=== PATIENT | male | born 1955 | race African-American/Black ===

== ENCOUNTER 2017-09-09 09:25 | Inpatient (IN) ==
[2017-09-09] MEDS ORDERED: ASPIRIN 325 MG TABLET PO STA (10:44)
[2017-09-09] MEDS ORDERED: MORPHINE 2 MG/1 ML SYRINGE IV STA (10:44)
[2017-09-09] MEDS ORDERED: ONDANSETRON 4 MG/2 ML VIAL IV STA (10:44)
[2017-09-09] MEDS ORDERED: NITROGLYCERIN 2% OINT 1 INCH/GM PACK TOP STA (10:44)
[2017-09-09] MEDS ORDERED: ALUM/MAG/SIMETH/LIDO VISC 1:1 30 ML BOTTLE PO STA (10:44)
[2017-09-09 10:53] LABS: Basophils % 0.5 % (0.0-0.8); Eosinophils # 0.1 10*3/uL (0.0-0.87); Eosinophils % 1.9 % (0.00-10.9); Hematocrit 37.9 VOL% (42.0-52.0); Immature Granulocytes % 0.4 %; Immature Granulocytes Absolute 0.02 #; Lymphocytes # 1.8 10*3/uL (1.4-4.0); Mean Corpuscular HGB Conc 34.3 GM/DL (32-36); Mean Corpuscular Hemoglobin 31 PG (27-34); Mean Corpuscular Volume 89.4 FL (87-102); Mean Platelet Volume 11.7 FL (9.6-12.0); Monocytes # 0.7 10*3/uL (0.11-0.8); Monocytes % 11.5 % (1.7-12.7); Neutrophils % 53.7 % (38.7-73.9); Platelet Count 189 T/CUMM (130-400); Red Blood Count 4.24 MC/CUMM (3.8-5.5); Red Cell Distribution Width 14.9 % (9.3-17.3); White Blood Count 5.7 T/CUMM (4-12)
[2017-09-09 10:56] LABS: PT Patient Result 10.7 SECS
[2017-09-09 11:03] LABS: Alanine Aminotransferase 20 U/L (16-61); Albumin 3.6 G/DL (3.4-5.0); Alkaline Phosphatase 176 U/L (45-117); Aspartate Amino Transferase 17 U/L (0-37); Bilirubin,Total < 0.39 MG/DL (0.2-1.0); Blood Urea Nitrogen 17 MG/DL (7-18); Calcium 9.2 MG/DL (8.5-10.1); Glucose 118 MG/DL (74-106); Magnesium 2.1 MG/DL (1.8-2.4); Osmolality,Calculated 279.5 MOS/KG (273-304); Potassium 2.9 MMOL/L (3.5-5.1); Sodium 139 MMOL/L (136-145); Total Protein 7.2 G/DL (6.4-8.3)
[2017-09-09] MEDS ORDERED: NITROGLYCERIN 2% OINT 1 INCH/GM PACK TOP ONE (11:10)
[2017-09-09] MEDS ORDERED: ONDANSETRON 4 MG/2 ML VIAL ONE (11:10)
[2017-09-09] MEDS ORDERED: ALUM/MAG/SIMETH/LIDO VISC 1:1 30 ML BOTTLE PO ONE (11:11)
[2017-09-09] MEDS ORDERED: MORPHINE 2 MG/1 ML SYRINGE ONE (11:11)
--- NOTE | 2017-09-09 11:27 | XRay Report ---
History is chest pain Comparison 12/26/2015 The heart is mildly enlarged No congestive failure or confluent infiltrate is seen Impression: Mild cardiomegaly without CHF PROCEDURE INTERPRETED AT [facility] DEPARTMENT OF RADIOLOGY Final Report Signed by: Dr. Yulissa Maynard
[2017-09-09] MEDS ORDERED: POTASSIUM CHLORIDE 20 MEQ TABLET PO STA (12:04)
--- NOTE | 2017-09-09 12:11 | Emergency Department Note ---
Dany Sherman Manpreet, am scribing for, and in the presence of, Ned Bejarano MD 11:08. Carlee Sherman Charles R, MD, personally performed the services described in this documentation, ascribed by Jonathan Saenz in my presence, and it is both accurate and complete . Arrival - Arrival Chief Complaint: Chest Pain Stated Complaint: chest pain ED Nursing Triage Note: pt states when he gets up in the morning and started walking around he gets a pressure in his chest and sob. onset yesterday morning Mode of Arrival: Ambulatory Limitations: No Limitations Source: Patient Time Seen by Provider: 09/09/17 09:49 - History of Present Illness HPI Narrative: Pt is a 62 y/o male who presents to the ED with CC of pressure in his chest and SOB on exertion. Pt reports of having a Stent May 2016 put states he had no pain then. Pt also c/o diaphoresis but denies any pain currently. Pt has right sided weakness from a previous CVA and uses a walker to ambulate. Pt's PCP is Dr. Alvarado and mds nurse is Dr. Antonio at [place]. Pt denies any fever, chills, or N/V/D. No other pains/complaints reported to the ED. Onset (ago): day(s) (Yesterday) Consistency: constant Severity: moderate Allergies/Adverse Reactions: Allergies Allergy/AdvReac Type Severity Reaction Status Date / Time No Known Allergies Allergy Verified 03/14/16 18:13 Home Medications: Home Medications Medication Instructions Recorded Confirmed Type Furosemide Tab [Lasix Tab] 20 mg PO DAILY 12/26/15 09/09/17 History Meloxicam [Mobic] 7.5 tablet PO DAILY 12/26/15 09/09/17 History Phenytoin ER Cap [Dilantin Cap] 200 mg PO BID 12/26/15 09/09/17 History Potassium Chloride 20 meq PO DAILY 12/26/15 09/09/17 History Sertraline HCl 100 mg PO DAILY 12/26/15 09/09/17 History cloNIDine TAB [Catapres Tab] 0.1 mg PO BEDTIME 12/26/15 09/09/17 History Aspirin [Ecotrin] 81 mg PO DAILY 03/14/16 09/09/17 History Cetirizine Tab [ZyrTEC Tab] 10 mg PO DAILY 08/24/16 09/09/17 History Clopidogrel [Plavix] 75 mg PO DAILY 08/24/16 09/09/17 History Fluticasone 50 Mcg Nasal [place] 1 spray BOTH NARES DAILY PRN 08/24/16 09/09/17 History [Flonase Nasal [place]] Folic Acid Tab 1 mg PO DAILY 08/24/16 09/09/17 History Pantoprazole Tab [Protonix Tab] 40 mg PO DAILY 08/24/16 09/09/17 History Rosuvastatin [Crestor] 10 mg PO BEDTIME 08/24/16 09/09/17 History Linaclotide [Linzess] 145 mcg PO DAILY PRN 05/27/17 09/09/17 History Olmesartan/Amlodipin/Hcthiazid 1 each PO DAILY 05/27/17 09/09/17 History [Tribenzor 40-5-25 mg Tablet] Ondansetron [Ondansetron Odt] 4 mg PO Q4H PRN #10 tab.rapdis 05/27/17 09/09/17 Rx Potassium Chloride Cap/Tab [K Dur] 20 meq PO BID #14 tablet 05/27/17 09/09/17 Rx Saxagliptin HCl/Metformin HCl 1 each PO DAILY 05/27/17 09/09/17 History [Kombiglyze Xr 5-500 mg Tablet] Tamsulosin [Flomax] 0.4 mg PO DAILY 05/27/17 09/09/17 History predniSONE TAB [PredniSONE] 5 mg PO DAILY 05/27/17 09/09/17 History Review of System - Review of System 12 point system: reviewed and no additional remarkable complaints except as stated - Review of System Constitutional: Present: diaphoresis. Absent: chills, fever Respiratory: Present: respiratory distress. Absent: cough, wheezing Cardiovascular: Present: chest pain ("Chest pressure"). Absent: palpitations Gastrointestinal: Absent: abdominal pain, nausea, vomiting, diarrhea Genitourinary male: Absent: dysuria Musculoskeletal: Absent: arm pain, back pain, leg pain, neck pain Neurological: Absent: headache, weakness, numbness, paresthesias Medical,Surgical,& Family Hx - Medical History Cardio: History of: Hypertension Neurology: History of: Cerebrovascular Accident (right sided paralysis) Endocrine: History of: Diabetes Mellitus (NIDDM), Dyslipidemia Gastrointestinal: History of: GERD (GERD) Musculoskeletal: History of: Back/Neck Problems, Musculoskeletal Cancer ( ARTHRITIS) - Surgical History Thoracic Surgeries: Patient denies;: Organ Transplant Neurologic Surgeries: Patient denies: Neurologic Surgery Abdominal Surgeries: Surgical HX of: Abdominal Surgery, Appendectomy Orthopedic Surgeries: Surgical HX of;: Orthopedic Surgery (C2) - Family History Family History: Reports;: Family Diabetes, Family Heart Disease, Family Hypertension, Family Stroke - Social History Smoking Status: Never smoker Frequency of Alcohol Use: None Type of Drug Use: None Exam Vital Signs: Vital Signs Temperature 97.0 F L 09/09/17 09:40 Pulse Rate 69 09/09/17 09:40 Respiratory Rate 18 09/09/17 09:40 Blood Pressure 104/66 09/09/17 09:40 O2 Sat by Pulse Oximetry 96 09/09/17 09:31 - General General appearance: alert - Head Head exam: Present: atraumatic, normocephalic, normal inspection - Eye Eye exam: Present: normal appearance, PERRL, EOMI - ENT ENT exam: Present: normal exam, normal oropharynx, mucous membranes moist, TM's normal bilaterally - Neck Neck exam: Present: normal inspection, full ROM, trachea midline - Chest Chest inspection: Present: normal inspection - Respiratory Respiratory exam: Present: normal lung sounds bilaterally. Absent: respiratory distress - Cardiovascular Cardiovascular exam: Present: regular rate, normal rhythm, normal heart sounds - Abdominal Exam Abdominal exam: Present: soft, normal bowel sounds - Extremities Exam Extremities exam: Present: normal inspection, full ROM - Back Exam Back exam: Present: normal inspection, full ROM - Neurological Exam Neurological exam: Present: alert, oriented X3, CN II-XII intact, reflexes normal - Psychiatric Psychiatric exam: Present: normal affect, normal mood - Skin Skin exam: Present: warm, dry, intact, normal color. Absent: pallor Course - Consultations Consultation #1: Dr. Marcie Alvarado will admit patient Time: 12:11 Results - Labs CBC & BMP: 09/09/17 09:58 09/09/17 09:58 Lab Results: I have reviewed the patients labs Labs: Laboratory Tests 09/09/17 09/09/17 09:58 09:58 Sodium 139 Potassium 2.9 L Chloride 99 Carbon Dioxide 34 H Anion Gap 8.9 BUN 17 Creatinine 1.10 GFR Calculation 106 BUN/Creatinine Ratio 15.00 Glucose 118 H Calculated Osmolality 279.5 Calcium 9.2 Magnesium 2.1 Total Bilirubin < 0.39 AST 17 ALT 20 Alkaline Phosphatase 176 H Troponin I < 0.015 Total Protein 7.2 Albumin 3.6 Globulin 3.6 H Albumin/Globulin Ratio 1.0 L Lipase 218.0 Laboratory Tests 09/09/17 09:58 B-Natriuretic Peptide < 2 L - Diagnostic Findings Procedure: Chest x-ray: report reviewed by me ("CXR: Mild cardiomegaly without CHF.") Disposition Clinical Impression: Chest pain Case discussed with: patient Disposition: Still a Patient Condition: Stable Time of Disposition: 12:11
--- NOTE | 2017-09-09 13:37 | Order Completion Report ---
See report scanned to EMR
--- NOTE | 2017-09-09 14:53 | Order Completion Report ---
See report scanned to EMR
[2017-09-09] MEDS ORDERED: POTASSIUM CHLORIDE 20 MEQ TABLET PO ONE (15:43)
[2017-09-09] MEDS ORDERED: GLUCAGON 1 MG VIAL IM PRN (16:24)
[2017-09-09] MEDS ORDERED: ACETAMINOPHEN 325 MG TABLET PO PRN (16:24)
[2017-09-09] MEDS ORDERED: DEXTROSE 50% 25 GM/50 ML VIAL IV PRN (16:24)
[2017-09-09] MEDS ORDERED: ONDANSETRON ODT 4 MG TABLET PO PRN (16:24)
[2017-09-09] MEDS ORDERED: ONDANSETRON 4 MG/2 ML VIAL IV PRN (16:24)
[2017-09-09] MEDS ORDERED: ENOXAPARIN 40 MG/0.4 ML SYRINGE SUBCUT SCH (16:24)
[2017-09-09] MEDS ORDERED: FLUTICASONE 50 MCG NASAL SPRAY 16 GM BOTTLE BOTH NARES PRN (16:24)
[2017-09-09] MEDS ORDERED: MORPHINE 2 MG/1 ML SYRINGE IV PRN (16:24)
[2017-09-09] MEDS ORDERED: LINACLOTIDE 145 MCG CAPSULE PO PRN (16:24)
[2017-09-09] MEDS: INSULIN REGULAR 100 UNIT/ML SUBCUT SCH ×2 (16:58→21:36)
--- NOTE | 2017-09-09 17:39 | Internal Med History&Physical ---
Assessment and Plan (1) Chest pain Status: Acute Current Visit: Yes (2) History of stroke Status: Chronic Current Visit: Yes (3) CAD (coronary artery disease) Status: Chronic Current Visit: Yes Qualifiers: Coronary Disease-Associated Artery/Lesion type: [place] artery [place] vs. transplanted heart: [place] heart Associated angina: without angina Qualified Code(s): I25.10 - Atherosclerotic heart disease of [place] coronary artery without angina pectoris (4) Diabetes Status: Chronic Current Visit: Yes Qualifiers: Diabetes mellitus type: type 2 Diabetes mellitus complication status: without complication Diabetes mellitus health companion insulin use: without health companion use Qualified Code(s): E11.9 - Type 2 diabetes mellitus without complications History of Present Illness Chief complaint: chest pain History of present illness: Mr. Barraza is a 62 year old male with history of HTN, stroke with right sided weakness, dyslipidemia, DM, CAD/stenting last year per Dr. Antonio, OA, degenerative disc disease, recent cervical spinal surgery, who presented to ER with acute exertional chest tightness. He reports having no pain last year when coronary arterial stent placed. No history of asthma. Home Medications Medication Instructions Recorded Confirmed Type Furosemide Tab [Lasix Tab] 20 mg PO DAILY 12/26/15 09/09/17 History Meloxicam [Mobic] 7.5 tablet PO DAILY 12/26/15 09/09/17 History Phenytoin ER Cap [Dilantin Cap] 200 mg PO BID 12/26/15 09/09/17 History Potassium Chloride 20 meq PO DAILY 12/26/15 09/09/17 History Sertraline HCl 100 mg PO DAILY 12/26/15 09/09/17 History cloNIDine TAB [Catapres Tab] 0.1 mg PO BEDTIME 12/26/15 09/09/17 History Aspirin [Ecotrin] 81 mg PO DAILY 03/14/16 09/09/17 History Cetirizine Tab [ZyrTEC Tab] 10 mg PO DAILY 08/24/16 09/09/17 History Clopidogrel [Plavix] 75 mg PO DAILY 08/24/16 09/09/17 History Fluticasone 50 Mcg Nasal [place] 1 spray BOTH NARES DAILY PRN 08/24/16 09/09/17 History [Flonase Nasal [place]] Folic Acid Tab 1 mg PO DAILY 08/24/16 09/09/17 History Pantoprazole Tab [Protonix Tab] 40 mg PO DAILY 08/24/16 09/09/17 History Rosuvastatin [Crestor] 10 mg PO BEDTIME 08/24/16 09/09/17 History Linaclotide [Linzess] 145 mcg PO DAILY PRN 05/27/17 09/09/17 History Olmesartan/Amlodipin/Hcthiazid 1 each PO DAILY 05/27/17 09/09/17 History [Tribenzor 40-5-25 mg Tablet] Ondansetron [Ondansetron Odt] 4 mg PO Q4H PRN #10 tab.rapdis 05/27/17 09/09/17 Rx Saxagliptin HCl/Metformin HCl 1 each PO DAILY 05/27/17 09/09/17 History [Kombiglyze Xr 5-500 mg Tablet] Tamsulosin [Flomax] 0.4 mg PO DAILY 05/27/17 09/09/17 History predniSONE TAB [PredniSONE] 5 mg PO DAILY 05/27/17 09/09/17 History Allergies Allergy/AdvReac Type Severity Reaction Status Date / Time No Known Allergies Allergy Verified 03/14/16 18:13 Medical,Surgical,& Family Hx - Medical History Cardio: History of: Hypertension Neurology: History of: Cerebrovascular Accident (right sided weakness) Endocrine: History of: Diabetes Mellitus (NIDDM), Dyslipidemia Gastrointestinal: History of: GERD (GERD) Musculoskeletal: History of: Back/Neck Problems (Arthritis), Musculoskeletal Problems (Arthritis) - Surgical History Cardiac Surgeries: Sugical HX of: Cardiac Catheterization (May 2016) Thoracic Surgeries: Patient denies;: Organ Transplant Neurologic Surgeries: Patient denies: Neurologic Surgery Abdominal Surgeries: Surgical HX of: Abdominal Surgery, Appendectomy Orthopedic Surgeries: Surgical HX of;: Orthopedic Surgery (C2) - Family History Family History: Reports;: Family Diabetes, Family Heart Disease, Family Hypertension, Family Stroke - Social History Smoking Status: Never smoker Frequency of Alcohol Use: None Type of Drug Use: None Marital Status: Lives With:: Spouse Functional capacity: uses cane/walker - Constitutional Constitutional: Absent: fatigue - Cardiovascular Cardiovascular: Present: chest pain with activity. Absent: diaphoresis - Respiratory Respiratory: Absent: dyspnea - Gastrointestinal Gastrointestinal: Absent: nausea - Musculoskeletal Musculoskeletal: Present: arthralgias, muscle weakness (history of stroke) - Psychiatric Psychiatric: Absent: anxiety Exam - Constitutional Vitals: Period Temp Pulse Resp BP Sys/Lopez Pulse Ox Last 24 Hr 97.0 F-98.6 F 62-69 18-18 101-104/66-72 96-100 General appearance: no acute distress - Head Head exam: Present: normocephalic - Eye Eye exam: Present: EOMI - Respiratory Respiratory exam: Present: clear to auscultation bilaterally - Cardiovascular Cardiovascular exam: Present: regular rate and rhythm - GI/Abdominal GI/Abdominal exam: Present: soft. Absent: tenderness - Extremities Exam Extremities exam: Absent: edema - Neurological Exam Neurological exam: Present: alert, oriented X3 - Psychiatric Psychiatric exam: Present: normal mood - Skin Skin exam: Present: warm, dry Results - Labs CBC & BMP: 09/10/17 04:49 09/10/17 04:49 - EKG EKG shows: sinus rhythm - Diagnostic Findings Procedure: Chest x-ray: report reviewed by me
[2017-09-09] MEDS: ENOXAPARIN 40 MG/0.4 ML SYRINGE SUBCUT SCH (17:49)
[2017-09-09] MEDS: NITROGLYCERIN 2% OINT 1 INCH/GM PACK TOP SCH (17:49)
[2017-09-09] MEDS: SODIUM CHLORIDE 0.9% 1,000 ML IV SCH (17:49)
[2017-09-09] MEDS: POTASSIUM CHLORIDE 20 MEQ TABLET PO SCH (21:33)
[2017-09-09] MEDS: ROSUVASTATIN 10 MG TABLET PO SCH (21:34)
[2017-09-09] MEDS: DOCUSATE SODIUM 100 MG CAPSULE PO SCH (21:34)
[2017-09-09] MEDS: cloNIDine 0.1 MG TABLET PO SCH (21:35)
[2017-09-09] MEDS: PHENYTOIN ER 100 MG CAPSULE PO SCH (21:41)
[2017-09-10] MEDS: NITROGLYCERIN 2% OINT 1 INCH/GM PACK TOP SCH ×4 (00:03→17:28)
[2017-09-10 05:19] LABS: Basophils % 0.3 % (0.0-0.8); Eosinophils # 0.2 10*3/uL (0.0-0.87); Eosinophils % 2.8 % (0.00-10.9); Hematocrit 33.7 VOL% (42.0-52.0); Hemoglobin 11.4 GM/DL (14.0-18.0); Immature Granulocytes % 0.3 %; Immature Granulocytes Absolute 0.02 #; Lymphocytes # 2.5 10*3/uL (1.4-4.0); Lymphocytes % 40.3 % (21.2-54.2); Mean Corpuscular HGB Conc 33.8 GM/DL (32-36); Mean Corpuscular Hemoglobin 31 PG (27-34); Mean Corpuscular Volume 90.6 FL (87-102); Mean Platelet Volume 11.6 FL (9.6-12.0); Monocytes # 0.7 10*3/uL (0.11-0.8); Neutrophils # 2.8 10*3/uL (1.4-7.4); Neutrophils % 45.3 % (38.7-73.9); Platelet Count 158 T/CUMM (130-400); Red Blood Count 3.72 MC/CUMM (3.8-5.5); White Blood Count 6.2 T/CUMM (4-12)
[2017-09-10 05:59] LABS: Alanine Aminotransferase 18 U/L (16-61); Albumin 2.9 G/DL (3.4-5.0); Alkaline Phosphatase 142 U/L (45-117); Aspartate Amino Transferase 11 U/L (0-37); Bilirubin,Total < 0.39 MG/DL (0.2-1.0); Blood Urea Nitrogen 12 MG/DL (7-18); Calcium 8.6 MG/DL (8.5-10.1); Cholesterol 173 MG/DL (50-200); Glucose 115 MG/DL (74-106); HDL Cholesterol 46 MG/DL (40-60); Magnesium 2.1 MG/DL (1.8-2.4); Osmolality,Calculated 283.1 MOS/KG (273-304); Potassium 3.7 MMOL/L (3.5-5.1); Risk Ratio 3.76; Sodium 142 MMOL/L (136-145); Total Protein 5.9 G/DL (6.4-8.3); Triglycerides 196 MG/DL (2-150); VLDL CHOLESTEROL 39.2 MG/DL
[2017-09-10 06:28] LABS: Apearance,Urine CLEAR (Clear); Bilirubin,Urine Negative (Negative); Blood, Urine Negative (Negative); Glucose,Urine (UA) Negative (Negative); Ketones,Urine Negative (Negative); Nitrite,Urine Negative (Negative); Protein,Urine Negative; RBC,Urine <1 /HPF (0-4); Urine Color Straw (Yellow); Urine Specific Gravity 1.004 (1.001-1.035); Urine Urobilinogen < 2.0 EU/DL (0.2-1.0); WBC,Urine <1 /HPF (0-6)
[2017-09-10] MEDS: INSULIN REGULAR 100 UNIT/ML SUBCUT SCH ×4 (07:39→21:55)
--- NOTE | 2017-09-10 08:17 | XRay Report ---
XR chest 2V Date: 09/10/2017 4:00 AM History: Shortness of breath Comparison: 09/09/2017 Technique: PA and lateral chest Findings: The heart is smaller in size with reduced parenchymal findings in the lungs. Stable mediastinum with degenerative changes. Impression: The heart is smaller in size with improved mild CHF. PROCEDURE INTERPRETED AT [facility] DEPARTMENT OF RADIOLOGY Final Report Signed by: Dr. Misty Elena
[2017-09-10] MEDS ORDERED: CLOPIDOGREL 75 MG TABLET PO SCH (09:00)
[2017-09-10] MEDS ORDERED: POTASSIUM CHLORIDE 20 MEQ TABLET PO SCH (09:00)
[2017-09-10] MEDS ORDERED: ASPIRIN EC 81 MG TABLET PO SCH ×2 (09:00)
[2017-09-10] MEDS ORDERED: metFORMIN 500 MG TABLET PO SCH (09:00)
[2017-09-10] MEDS: hydroCHLOROthiazide 25 MG TABLET PO SCH (09:12)
[2017-09-10] MEDS: MELOXICAM 7.5 MG TABLET PO SCH (09:12)
[2017-09-10] MEDS: TAMSULOSIN 0.4 MG CAPSULE PO SCH (09:13)
[2017-09-10] MEDS: PANTOPRAZOLE 40 MG TABLET PO SCH (09:13)
[2017-09-10] MEDS: CETIRIZINE 10 MG TABLET PO SCH (09:13)
[2017-09-10] MEDS: DOCUSATE SODIUM 100 MG CAPSULE PO SCH ×2 (09:13→20:43)
[2017-09-10] MEDS: POTASSIUM CHLORIDE 20 MEQ TABLET PO SCH ×2 (09:13→20:43)
[2017-09-10] MEDS: OLMESARTAN 20 MG TABLET PO SCH (09:13)
[2017-09-10] MEDS: sitaGLIPtin 100 MG TABLET PO SCH (09:13)
[2017-09-10] MEDS: FOLIC ACID 1 MG TABLET PO SCH (09:13)
[2017-09-10] MEDS: FUROSEMIDE 20 MG TABLET PO SCH (09:14)
[2017-09-10] MEDS: SERTRALINE 100 MG TABLET PO SCH (09:14)
[2017-09-10] MEDS: PHENYTOIN ER 100 MG CAPSULE PO SCH ×2 (09:14→20:43)
[2017-09-10] MEDS: amLODIPine 5 MG TABLET PO SCH (09:14)
[2017-09-10] MEDS: predniSONE 5 MG TABLET PO SCH (09:14)
[2017-09-10] MEDS: PANTOPRAZOLE 40 MG VIAL IV SCH (09:55)
[2017-09-10] MEDS ORDERED: MAGNESIUM SULF RIDER 2 GM in PREMIX 1 EACH IV PRN (12:24)
[2017-09-10] MEDS ORDERED: DIAZEPAM 5 MG TABLET PO ONE (12:24)
[2017-09-10] MEDS ORDERED: diphenhydrAMINE CAP 25 MG CAPSULE PO ONE (12:24)
[2017-09-10] MEDS ORDERED: POTASSIUM CHLORIDE RIDER 10 MEQ in PREMIX 1 EACH IV PRN (12:24)
--- NOTE | 2017-09-10 12:36 | History and Physical Update ---
Sedation H&P Update - History and Physical H&P was reviewed, the patient examined and there: are no changes in the patients condition since last H&P was completed. - Dictation Physical: refer to H&P completed by admitting physician - Physical Exam Mental Status: alert and oriented Heart: regular rate and rhythm Lung: clear to auscultation Abdomen: within normal limits Vitals: within normal limits - Sedation Plan for Sedation: moderate Patient Consent: Procedure disscussed with patient and patinet has consented., Risks and benefits were discussed with patient,including infection,, bleeding, injury to surrounding structures, seizure, temporary nerve, Patient understands and accepts potential risks/benefits and agrees to, proceed. ASA Class: II Airway Assessment: Class II: Soft palate, uvula, fauces visible
--- NOTE | 2017-09-10 12:36 | Cardiology Consult Note ---
History of Present Illness - Data of Consult Patient: new to practice - Consult Narrative History of present illness: Cardiology consult 62-year-old man admitted with exertional angina and shortness of breath. For the past 5 days he has had midsternal chest pain walking. He has had some ration down his left arm. No nausea or diaphoresis. He has no sublingual nitro at home. EKG shows sinus rhythm with preserved R-wave and ST-T wave changes. Chest x-ray shows mild cardiomegaly but no heart failure infiltrate. Troponin is negative 3. Patient has documented CAD. Status post stent July [address] Antonio at [place] unknown vessel. Records have been requested. The patient has chronic hypertension and takes olmesartan/amlodipine/HCTZ 40-5-25 daily. Is a type II diabetic and takes saxagliptin/metformin. Status post stroke 2009. He had a seizure post stroke and is now taking phenytoin 20 mg twice daily. No recurrent seizure. He does have hyperlipidemia and takes Crestor 10 mg daily. Patient is 5 feet 11 and weighs 220 pounds. His weight is been stable. He does have GE reflux symptoms and takes Protonix daily. He denies melena. Patient states that this pain is completely different from his usual reflux symptoms. He does take meloxicam 7.5 mg daily for arthritic complaints. He takes Flomax 0 point negative day for BPH symptoms. The patient does snore loudly and sleeps in a recliner chair. He does have daytime sleepiness. He will be need be evaluated for sleep apnea. Remote smoker. Quit over 30 years ago. No alcohol. He did not know his father. Brother had GA in his late 40s. Uncle had a stroke. No allergies Surgeries include cervical fusion and appendectomy Blood pressure 118/76. Pulse is 82 and regular. O2 sat 96% room air. Bilateral arcus. No xanthelasma. No carotid bruits. Clear lungs. Regular rhythm. No murmur or gallop abdomen obese soft benign. No chest wall tenderness to palpation. Femoral pulses are 2+ without bruit. 2+ distal pulses Lab data shows white count 6.2 hemoglobin 11.4 hematocrit 33.7 MCV of 90 INR 1.0 sodium 142 potassium 3.7 chloride 102 CO2 35 BUN 12 creatinine 0.90 glucose 115 magnesium 2.1 AST 11 ALT 18 negative troponin 3 triglycerides 196 cholesterol 173 LDL 96 HDL 46 negative UA. Dilantin level 4.6. Impression Exertional angina midsternal location with radiation to left arm, suspect disease progression Status post stent July [address] [place] [address] Antonio. Patient had another moderate blockage at that time which was treated medically Multiple risk factors for CAD Long-standing hypertension Type 2 diabetes Hyperlipidemia Obesity Status post stroke Sedentary lifestyle Family history GA and hypertension GE reflux Remote tobacco abuse BPH Creatinine 0.90 BUN 12 Rule out NAOMIE Plan Hold metformin Normal saline hydration Cardiac cath possible stent procedure, risk benefit discussed with patient and with his Tegan and with his daughter Juana. All questions answered. He agreed proceed as outlined. Dr. Danielle will perform the procedure and family informed Risk factor modification Outpatient sleep study CC: Marcie Alvarado, DO - Home Medications and Allergies Home Medications: Home Medications Medication Instructions Recorded Confirmed Type Furosemide Tab [Lasix Tab] 20 mg PO DAILY 12/26/15 09/09/17 History Meloxicam [Mobic] 7.5 tablet PO DAILY 12/26/15 09/09/17 History Phenytoin ER Cap [Dilantin Cap] 200 mg PO BID 12/26/15 09/09/17 History Potassium Chloride 20 meq PO DAILY 12/26/15 09/09/17 History Sertraline HCl 100 mg PO DAILY 12/26/15 09/09/17 History cloNIDine TAB [Catapres Tab] 0.1 mg PO BEDTIME 12/26/15 09/09/17 History Aspirin [Ecotrin] 81 mg PO DAILY 03/14/16 09/09/17 History Cetirizine Tab [ZyrTEC Tab] 10 mg PO DAILY 08/24/16 09/09/17 History Clopidogrel [Plavix] 75 mg PO DAILY 08/24/16 09/09/17 History Fluticasone 50 Mcg Nasal [place] 1 spray BOTH NARES DAILY PRN 08/24/16 09/09/17 History [Flonase Nasal [place]] Folic Acid Tab 1 mg PO DAILY 08/24/16 09/09/17 History Pantoprazole Tab [Protonix Tab] 40 mg PO DAILY 08/24/16 09/09/17 History Rosuvastatin [Crestor] 10 mg PO BEDTIME 08/24/16 09/09/17 History Linaclotide [Linzess] 145 mcg PO DAILY PRN 05/27/17 09/09/17 History Olmesartan/Amlodipin/Hcthiazid 1 each PO DAILY 05/27/17 09/09/17 History [Tribenzor 40-5-25 mg Tablet] Ondansetron [Ondansetron Odt] 4 mg PO Q4H PRN #10 tab.rapdis 05/27/17 09/09/17 Rx Saxagliptin HCl/Metformin HCl 1 each PO DAILY 05/27/17 09/09/17 History [Kombiglyze Xr 5-500 mg Tablet] Tamsulosin [Flomax] 0.4 mg PO DAILY 05/27/17 09/09/17 History predniSONE TAB [PredniSONE] 5 mg PO DAILY 05/27/17 09/09/17 History Allergies/Adverse Reactions: Allergies Allergy/AdvReac Type Severity Reaction Status Date / Time No Known Allergies Allergy Verified 03/14/16 18:13 Medical,Surgical,& Family Hx - Medical History Cardio: History of: Hypertension Neurology: History of: Cerebrovascular Accident (right sided weakness) Endocrine: History of: Diabetes Mellitus (NIDDM), Dyslipidemia Gastrointestinal: History of: GERD (GERD) Musculoskeletal: History of: Back/Neck Problems (Arthritis), Musculoskeletal Cancer (ARTHRITIS), Musculoskeletal Problems (Arthritis) - Surgical History Cardiac Surgeries: Sugical HX of: Cardiac Catheterization (May 2016) Thoracic Surgeries: Patient denies;: Organ Transplant Neurologic Surgeries: Patient denies: Neurologic Surgery Abdominal Surgeries: Surgical HX of: Abdominal Surgery, Appendectomy Orthopedic Surgeries: Surgical HX of;: Orthopedic Surgery (C2) - Family History Family History: Reports;: Family Diabetes, Family Heart Disease, Family Hypertension, Family Stroke - Social History Smoking Status: Never smoker Frequency of Alcohol Use: None Type of Drug Use: None Physical Examination Vital Signs Temp Pulse Resp BP Pulse Ox 97.0 F L 69 18 104/66 96 09/09/17 09:31 09/09/17 09:31 09/09/17 09:31 09/09/17 09:31 09/09/17 09:31 Result/EKG - Labs CBC & BMP: 09/10/17 04:49 09/10/17 04:49 Labs: Laboratory Results - last 24 hr 09/09/17 09/09/17 09/09/17 14:48 16:34 16:34 WBC RBC Hgb Hct MCV MCH MCHC RDW Plt Count MPV Neut % (Auto) Lymph % (Auto) [place] % (Auto) Eos % (Auto) Baso % (Auto) Neut # (Auto) Lymph # (Auto) [place] # (Auto) Eos # (Auto) Baso # (Auto) Immature Gran % Nucleated RBC % Immature Gran # Nucleated RBCs # Immature Plt Fraction Sodium Potassium Chloride Carbon Dioxide Anion Gap BUN Creatinine GFR Calculation BUN/Creatinine Ratio Glucose POC Glucose Calculated Osmolality Calcium Magnesium Total Bilirubin AST ALT Alkaline Phosphatase Troponin I 0.019 < 0.015 B-Natriuretic Peptide Total Protein Albumin Globulin Albumin/Globulin Ratio Triglycerides Cholesterol LDL Cholesterol VLDL Cholesterol HDL Cholesterol Heart Disease Risk Ratio Urine Color Urine Appearance Urine pH Ur Specific [place] Urine Protein Urine Glucose (UA) Urine Ketones Urine Blood Urine Nitrate Urine Bilirubin Urine Urobilinogen Urine Leukocytes Urine RBC Urine WBC Ur Culture Indicated? Phenytoin 4.6 L 09/09/17 09/09/17 09/10/17 16:39 19:52 00:28 WBC RBC Hgb Hct MCV MCH MCHC RDW Plt Count MPV Neut % (Auto) Lymph % (Auto) [place] % (Auto) Eos % (Auto) Baso % (Auto) Neut # (Auto) Lymph # (Auto) [place] # (Auto) Eos # (Auto) Baso # (Auto) Immature Gran % Nucleated RBC % Immature Gran # Nucleated RBCs # Immature Plt Fraction Sodium Potassium Chloride Carbon Dioxide Anion Gap BUN Creatinine GFR Calculation BUN/Creatinine Ratio Glucose POC Glucose 123 H 108 H 134 H Calculated Osmolality Calcium Magnesium Total Bilirubin AST ALT Alkaline Phosphatase Troponin I B-Natriuretic Peptide Total Protein Albumin Globulin Albumin/Globulin Ratio Triglycerides Cholesterol LDL Cholesterol VLDL Cholesterol HDL Cholesterol Heart Disease Risk Ratio Urine Color Urine Appearance Urine pH Ur Specific [place] Urine Protein Urine Glucose (UA) Urine Ketones Urine Blood Urine Nitrate Urine Bilirubin Urine Urobilinogen Urine Leukocytes Urine RBC Urine WBC Ur Culture Indicated? Phenytoin 09/10/17 09/10/17 09/10/17 04:49 04:49 04:49 WBC 6.2 RBC 3.72 L Hgb 11.4 L Hct 33.7 L MCV 90.6 MCH 31 MCHC 33.8 RDW 15.0 Plt Count 158 MPV 11.6 Neut % (Auto) 45.3 Lymph % (Auto) 40.3 [place] % (Auto) 11.0 Eos % (Auto) 2.8 Baso % (Auto) 0.3 Neut # (Auto) 2.8 Lymph # (Auto) 2.5 [place] # (Auto) 0.7 Eos # (Auto) 0.2 Baso # (Auto) 0.0 Immature Gran % 0.3 Nucleated RBC % 0.0 Immature Gran # 0.02 Nucleated RBCs # 0.00 Immature Plt Fraction 0.0 Sodium 142 Potassium 3.7 Chloride 102 Carbon Dioxide 35 H Anion Gap 8.7 BUN 12 Creatinine 0.90 GFR Calculation 135 BUN/Creatinine Ratio 13.00 Glucose 115 H POC Glucose Calculated Osmolality 283.1 Calcium 8.6 Magnesium 2.1 Total Bilirubin < 0.39 AST 11 ALT 18 Alkaline Phosphatase 142 H Troponin I B-Natriuretic Peptide 15 Total Protein 5.9 L Albumin 2.9 L Globulin 3.0 Albumin/Globulin Ratio 0.9 L Triglycerides 196 H Cholesterol 173 LDL Cholesterol 96.0 VLDL Cholesterol 39.2 HDL Cholesterol 46 Heart Disease Risk Ratio 3.76 Urine Color Urine Appearance Urine pH Ur Specific [place] Urine Protein Urine Glucose (UA) Urine Ketones Urine Blood Urine Nitrate Urine Bilirubin Urine Urobilinogen Urine Leukocytes Urine RBC Urine WBC Ur Culture Indicated? Phenytoin 09/10/17 09/10/17 09/10/17 05:25 05:27 07:53 WBC RBC Hgb Hct MCV MCH MCHC RDW Plt Count MPV Neut % (Auto) Lymph % (Auto) [place] % (Auto) Eos % (Auto) Baso % (Auto) Neut # (Auto) Lymph # (Auto) [place] # (Auto) Eos # (Auto) Baso # (Auto) Immature Gran % Nucleated RBC % Immature Gran # Nucleated RBCs # Immature Plt Fraction Sodium Potassium Chloride Carbon Dioxide Anion Gap BUN Creatinine GFR Calculation BUN/Creatinine Ratio Glucose POC Glucose 147 H 120 H Calculated Osmolality Calcium Magnesium Total Bilirubin AST ALT Alkaline Phosphatase Troponin I B-Natriuretic Peptide Total Protein Albumin Globulin Albumin/Globulin Ratio Triglycerides Cholesterol LDL Cholesterol VLDL Cholesterol HDL Cholesterol Heart Disease Risk Ratio Urine Color Straw Urine Appearance Clear Urine pH 6.0 Ur Specific [place] 1.004 Urine Protein Negative Urine Glucose (UA) Negative Urine Ketones Negative Urine Blood Negative Urine Nitrate Negative Urine Bilirubin Negative Urine Urobilinogen < 2.0 H Urine Leukocytes Negative Urine RBC <1 Urine WBC <1 Ur Culture Indicated? Not indicated Phenytoin
[2017-09-10] MEDS: SODIUM CHLORIDE 0.9% 1,000 ML IV SCH ×2 (12:47→12:49)
--- NOTE | 2017-09-10 13:15 | History and Physical Update ---
Sedation H&P Update - History and Physical H&P was reviewed, the patient examined and there: are no changes in the patients condition since last H&P was completed. - Dictation Physical: refer to scanned H&P - Physical Exam Mental Status: alert and oriented Heart: regular rate and rhythm Lung: clear to auscultation Abdomen: within normal limits Vitals: within normal limits - Sedation Plan for Sedation: minimal Patient Consent: Procedure disscussed with patient and patinet has consented., Risks and benefits were discussed with patient,including infection,, bleeding, injury to surrounding structures, seizure, temporary nerve, Patient understands and accepts potential risks/benefits and agrees to, proceed. (Left heart cath and possible PTCA or stent were discussed with the patient. The risk of the procedure include but are not limited to a small risk of injury to the vessel, abnormal heart rhythm, stroke, heart attack, need for emergent surgery, contrast reaction, restenosis, infection, or . The patient voices understanding, agrees with the plan, and desires to proceed with the heart catheterization.) ASA Class: II Airway Assessment: Class III: Soft palate, base of uvula visible
[2017-09-10] MEDS ORDERED: LIDOCAINE 1% 20 ML VIAL ONE (13:24)
[2017-09-10] MEDS ORDERED: MEPERIDINE 25 MG/1 ML VIAL ONE (13:24)
[2017-09-10] MEDS ORDERED: MIDAZOLAM 2 MG/2 ML VIAL ONE (13:24)
[2017-09-10] MEDS ORDERED: HEPARIN 5,000 UNIT/1 ML VIAL ONE (13:41)
[2017-09-10] MEDS ORDERED: TIROFIBAN 5,000 MCG/100 ML PREMIX IV ONE (14:02)
[2017-09-10] MEDS ORDERED: TIROFIBAN 5,000 MCG/100 ML PREMIX IV SCH (14:09)
--- NOTE | 2017-09-10 16:28 | Order Completion Report ---
See report scanned to EMR
--- NOTE | 2017-09-10 16:29 | Operative Note ---
Date of procedure: 09/10/17 Procedure Preformed: Left heart cath Coronary angiography Left ventriculography Angiogram of the right femoral artery PTCA of the diagonal-successful PTCA of the proximal LAD with an eye towards stenting the proximal LAD- unsuccessful Angio-Seal of the right femoral artery-successful Surgeon / Physician: Black Danielle Post-op diagnosis: same (Progressive chest pain, known CAD, prior coronary stent , failing medical therapy) Findings: Impression: Significant disease in the proximal, near ostial LAD and the ostial diagonal of the LAD Widely patent stent of the circumflex Mild disease in the circumflex--in other areas Dominant right coronary artery, aneurysmal disease proximally but the PDA had a 40% ostial narrowing, tubular Aneurysmal disease throughout all 3 coronary arteries Aggrastat bolus and infusion Status post successful PTCA of the diagonal unsuccessful PTCA and then stent of the proximal LAD Angiogram of the right femoral artery via the follow-through from the LV gram Normal global/regional left systolic function, LVEF greater than 55% Moderate elevation of LVEDP, 20 mmHg Angio-Seal of the right femoral artery Plan/recommendations: Based on the study, the patient's angina is due to new, progression of coronary disease. Probably involves the proximal LAD and diagonal. I was able to intervene upon the diagonal, but not successful with the LAD. It is probably due to a plaque are calcified area which would not allow crossing with the balloon, or least was intermittent and infrequent. Apparently was non-dilatable. Plan at this point will be to refer him for bypass grafting of the LAD and diagonal. The patient will have risk factors optimized. The patient will be on antiplatelet medications to include aspirin indefinitely . Plavix we will be stopped today in anticipation of surgery at some point. Addenda: I saw the patient post-cath. the groin puncture site and distal pulse are stable. vital signs are stable and the patient will be observed closely overnight. Specimens: none sent Estimated blood loss: minimal Condition: stable Anesthesia: local, conscious sedation Disposition: floor
[2017-09-10] MEDS ORDERED: DEXTROSE 50% 25 GM/50 ML VIAL IV PRN (16:36)
[2017-09-10] MEDS ORDERED: GLUCAGON 1 MG VIAL IM PRN (16:36)
[2017-09-10] MEDS: ENOXAPARIN 40 MG/0.4 ML SYRINGE SUBCUT SCH ×2 (17:27→18:12)
--- NOTE | 2017-09-10 20:33 | Internal Med Progress Note ---
Assessment and Plan (1) Chest pain Problem details: chest tightness Status: Acute Current Visit: Yes (2) History of stroke Status: Chronic Current Visit: Yes (3) CAD (coronary artery disease) Status: Chronic Current Visit: Yes Qualifiers: Coronary Disease-Associated Artery/Lesion type: [place] artery [place] vs. transplanted heart: [place] heart Associated angina: without angina Qualified Code(s): I25.10 - Atherosclerotic heart disease of [place] coronary artery without angina pectoris (4) Diabetes Status: Chronic Current Visit: Yes Qualifiers: Diabetes mellitus type: type 2 Diabetes mellitus complication status: without complication Diabetes mellitus mcfp insulin use: without manager intermediate use Qualified Code(s): E11.9 - Type 2 diabetes mellitus without complications Internal Medicine - PN: Subj Interval history: Mr. Barraza is a 62 year old male with history of HTN, stroke with right sided weakness, dyslipidemia, DM, CAD/stenting last year per Dr. Antonio, OA, degenerative disc disease, recent cervical spinal surgery, who presented to ER with acute exertional chest tightness. He reports having no pain last year when coronary arterial stent placed. No history of asthma. Sep 10: He is status post cardiac cath and needs CABG. Extensive disease, including LAD. He will be scheduled next week. He denies chest pain. Exam (Progress Note) - Constitutional Vitals: Period Temp Pulse Resp BP Sys/Lopez Pulse Ox Last 24 Hr 97.1 F-97.8 F 50-80 16-20 83-127/51-79 93-98 - Respiratory Respiratory exam: Present: clear to auscultation bilaterally - Cardiovascular Cardiovascular exam: Present: regular rate and rhythm - GI/Abdominal GI/Abdominal exam: Present: soft. Absent: tenderness - Extremities Exam Extremities exam: Absent: edema - Neurological Exam Neurological exam: Present: alert - Psychiatric Psychiatric exam: Present: normal mood - Skin Skin exam: Present: warm, dry Results - Labs CBC & BMP: 09/10/17 04:49 09/10/17 04:49 Quality Measures - VTE Contraindication to Pharmacological VTE Prophylaxis: High Risk of Bleeding
[2017-09-10] MEDS: ROSUVASTATIN 10 MG TABLET PO SCH (20:43)
[2017-09-10] MEDS: cloNIDine 0.1 MG TABLET PO SCH (20:44)
[2017-09-11] MEDS: NITROGLYCERIN 2% OINT 1 INCH/GM PACK TOP SCH ×4 (01:10→17:49)
[2017-09-11 04:38] LABS: Basophils % 0.4 % (0.0-0.8); Eosinophils # 0.2 10*3/uL (0.0-0.87); Eosinophils % 2.9 % (0.00-10.9); Hemoglobin 11.5 GM/DL (14.0-18.0); Immature Granulocytes % 0.4 %; Immature Granulocytes Absolute 0.03 #; Lymphocytes # 2.3 10*3/uL (1.4-4.0); Lymphocytes % 30.7 % (21.2-54.2); Mean Corpuscular HGB Conc 33.8 GM/DL (32-36); Mean Corpuscular Hemoglobin 31 PG (27-34); Mean Corpuscular Volume 90.4 FL (87-102); Monocytes # 0.8 10*3/uL (0.11-0.8); Monocytes % 11.4 % (1.7-12.7); Neutrophils % 54.2 % (38.7-73.9); Platelet Count 177 T/CUMM (130-400); Red Blood Count 3.76 MC/CUMM (3.8-5.5); Red Cell Distribution Width 14.9 % (9.3-17.3); White Blood Count 7.4 T/CUMM (4-12)
[2017-09-11 05:13] LABS: Calcium 8.2 MG/DL (8.5-10.1); Osmolality,Calculated 280.3 MOS/KG (273-304); Potassium 4.1 MMOL/L (3.5-5.1)
[2017-09-11 05:16] LABS: Troponin I Only 0.089 NG/ML (0.00-0.045)
--- NOTE | 2017-09-11 06:40 | Cardiothoracic Progress Note ---
Cardiothoracic Subjective Interval history: Consult received last night. We will plan to see later this morning. Catheters been reviewed and the patient has residual stenosis jeopardizing the LAD and the diagonal coronary arteries. I think that bypass surgery is probably his best option but we probably need to wait until early next week because of his Plavix therapy for his previous coronary stent. Will discuss with the patient today. Exam (Progress Note) - Constitutional Vitals: Period Temp Pulse Resp BP Sys/Lopez Pulse Ox Last 24 Hr 96.7 F-97.9 F 59-80 16-20 88-127/52-79 93-99 Result/EKG - Labs CBC & BMP: 09/11/17 03:02 09/11/17 03:02 Labs: Laboratory Results - last 24 hr 09/10/17 09/10/17 09/10/17 07:53 12:23 17:04 WBC RBC Hgb Hct MCV MCH MCHC RDW Plt Count MPV Neut % (Auto) Lymph % (Auto) [place] % (Auto) Eos % (Auto) Baso % (Auto) Neut # (Auto) Lymph # (Auto) [place] # (Auto) Eos # (Auto) Baso # (Auto) Immature Gran % Nucleated RBC % Immature Gran # Nucleated RBCs # Immature Plt Fraction Sodium Potassium Chloride Carbon Dioxide Anion Gap BUN Creatinine GFR Calculation BUN/Creatinine Ratio Glucose POC Glucose 120 H 120 H 109 H Calculated Osmolality Calcium Magnesium Total Creatine Kinase CK-MB (CK-2) Troponin I 09/11/17 09/11/17 09/11/17 01:34 03:02 03:02 WBC 7.4 RBC 3.76 L Hgb 11.5 L Hct 34.0 L MCV 90.4 MCH 31 MCHC 33.8 RDW 14.9 Plt Count 177 MPV 12.0 Neut % (Auto) 54.2 Lymph % (Auto) 30.7 [place] % (Auto) 11.4 Eos % (Auto) 2.9 Baso % (Auto) 0.4 Neut # (Auto) 4.0 Lymph # (Auto) 2.3 [place] # (Auto) 0.8 Eos # (Auto) 0.2 Baso # (Auto) 0.0 Immature Gran % 0.4 Nucleated RBC % 0.0 Immature Gran # 0.03 Nucleated RBCs # 0.00 Immature Plt Fraction 0.0 Sodium 141 Potassium 4.1 Chloride 102 Carbon Dioxide 36 H Anion Gap 7.1 BUN 10 Creatinine 1.00 GFR Calculation 119 BUN/Creatinine Ratio 10.00 Glucose 109 H POC Glucose 161 H Calculated Osmolality 280.3 Calcium 8.2 L Magnesium 2.0 Total Creatine Kinase CK-MB (CK-2) Troponin I 09/11/17 09/11/17 03:02 06:15 WBC RBC Hgb Hct MCV MCH MCHC RDW Plt Count MPV Neut % (Auto) Lymph % (Auto) [place] % (Auto) Eos % (Auto) Baso % (Auto) Neut # (Auto) Lymph # (Auto) [place] # (Auto) Eos # (Auto) Baso # (Auto) Immature Gran % Nucleated RBC % Immature Gran # Nucleated RBCs # Immature Plt Fraction Sodium Potassium Chloride Carbon Dioxide Anion Gap BUN Creatinine GFR Calculation BUN/Creatinine Ratio Glucose POC Glucose 133 H Calculated Osmolality Calcium Magnesium Total Creatine Kinase 117 CK-MB (CK-2) < 1.0 Troponin I 0.089 H D Quality Measures - VTE Contraindication to Pharmacological VTE Prophylaxis: High Risk of Bleeding
[2017-09-11] MEDS: INSULIN REGULAR 100 UNIT/ML SUBCUT SCH ×4 (07:03→20:55)
--- NOTE | 2017-09-11 07:30 | Order Completion Report ---
See report scanned to EMR
[2017-09-11] MEDS: PHENYTOIN ER 100 MG CAPSULE PO SCH ×2 (09:12→20:53)
[2017-09-11] MEDS: OLMESARTAN 20 MG TABLET PO SCH (09:12)
[2017-09-11] MEDS: MELOXICAM 7.5 MG TABLET PO SCH (09:12)
[2017-09-11] MEDS: sitaGLIPtin 100 MG TABLET PO SCH (09:13)
[2017-09-11] MEDS: FUROSEMIDE 20 MG TABLET PO SCH (09:13)
[2017-09-11] MEDS: ASPIRIN CHEW 81 MG TABLET PO SCH (09:13)
[2017-09-11] MEDS: hydroCHLOROthiazide 25 MG TABLET PO SCH (09:14)
[2017-09-11] MEDS: POTASSIUM CHLORIDE 20 MEQ TABLET PO SCH ×2 (09:14→20:53)
[2017-09-11] MEDS: DOCUSATE SODIUM 100 MG CAPSULE PO SCH ×2 (09:14→20:53)
[2017-09-11] MEDS: predniSONE 5 MG TABLET PO SCH (09:14)
[2017-09-11] MEDS: CETIRIZINE 10 MG TABLET PO SCH (09:14)
[2017-09-11] MEDS: TAMSULOSIN 0.4 MG CAPSULE PO SCH (09:14)
[2017-09-11] MEDS: FOLIC ACID 1 MG TABLET PO SCH (09:14)
[2017-09-11] MEDS: SERTRALINE 100 MG TABLET PO SCH (09:14)
[2017-09-11] MEDS: amLODIPine 5 MG TABLET PO SCH (09:15)
[2017-09-11] MEDS: PANTOPRAZOLE 40 MG TABLET PO SCH (09:19)
[2017-09-11] MEDS: PANTOPRAZOLE 40 MG VIAL IV SCH (09:19)
--- NOTE | 2017-09-11 12:26 | Sleep Medicine Consult ---
Assessment and Plan (1) Suspected sleep apnea Status: Acute Assessment and plan: This patient does have symptoms concerning for sleep apnea and with his comorbidities, sleep evaluation is indicated. He will be here for a few nights and we will start with home sleep testing though his insurance carrier will not accept these results. He will ultimately need outpatient polysomnography but we will evaluate him with HST evaluation tonight. Current Visit: Yes (2) Cerebrovascular accident Status: Chronic Assessment and plan: Untreated sleep apnea can be a risk factor for stroke. Treating sleep apnea in these patients can decrease her risk for stroke. Current Visit: No (3) CAD (coronary artery disease) Status: Chronic Assessment and plan: I reviewed the [place] data from Lancet 2004 with the patient to their understanding. This study proved significant reduction in the risk of fatal and nonfatal cardiac events in patients with severe obstructive sleep apnea compliant with CPAP, in comparison with those noncompliant with CPAP for severe sleep apnea. Current Visit: Yes Qualifiers: Coronary Disease-Associated Artery/Lesion type: [place] artery [place] vs. transplanted heart: [place] heart Associated angina: without angina Qualified Code(s): I25.10 - Atherosclerotic heart disease of [place] coronary artery without angina pectoris (4) Diabetes Status: Chronic Assessment and plan: The prevalence rate for obstructive sleep apnea in patients with type 2 diabetes can be as high as 86%. Those patients with moderate to severe obstructive sleep apnea are at a greater risk for diabetic nephropathy and neuropathy. Compliance with CPAP therapy for these patients can lead to improvement in glycemic control and improvement in insulin sensitivity. Current Visit: Yes Qualifiers: Diabetes mellitus type: type 2 Diabetes mellitus complication status: without complication Diabetes mellitus snf insulin use: without watermaster use Qualified Code(s): E11.9 - Type 2 diabetes mellitus without complications History of Present Illness Chief complaint: Sleep apnea History of present illness: Mr. Barraza is a 62 year old male admitted with chest pain who has significant comorbidities that include hypertension and previous stroke. During the course of his evaluation, it was noted that he had symptoms concerning for sleep apnea. Sleep medicine was consulted. The patient does have a history of loud snoring but is never been told that he stops breathing during his sleep. Usually retires after 10 PM and awakens about 6 AM. He will awaken multiple times during the night to urinate. He does experience symptoms of fatigue and sleepiness during the day. He does have an uncle with sleep apnea. Other than for his prior stroke and hypertension, he also has type 2 diabetes and a history of coronary disease. Home Medications Medication Instructions Recorded Confirmed Type Furosemide Tab [Lasix Tab] 20 mg PO DAILY 12/26/15 09/09/17 History Meloxicam [Mobic] 7.5 tablet PO DAILY 12/26/15 09/09/17 History Phenytoin ER Cap [Dilantin Cap] 200 mg PO BID 12/26/15 09/09/17 History Potassium Chloride 20 meq PO DAILY 12/26/15 09/09/17 History Sertraline HCl 100 mg PO DAILY 12/26/15 09/09/17 History cloNIDine TAB [Catapres Tab] 0.1 mg PO BEDTIME 12/26/15 09/09/17 History Aspirin [Ecotrin] 81 mg PO DAILY 03/14/16 09/09/17 History Cetirizine Tab [ZyrTEC Tab] 10 mg PO DAILY 08/24/16 09/09/17 History Clopidogrel [Plavix] 75 mg PO DAILY 08/24/16 09/09/17 History Fluticasone 50 Mcg Nasal [place] 1 spray BOTH NARES DAILY PRN 08/24/16 09/09/17 History [Flonase Nasal [place]] Folic Acid Tab 1 mg PO DAILY 08/24/16 09/09/17 History Pantoprazole Tab [Protonix Tab] 40 mg PO DAILY 08/24/16 09/09/17 History Rosuvastatin [Crestor] 10 mg PO BEDTIME 08/24/16 09/09/17 History Linaclotide [Linzess] 145 mcg PO DAILY PRN 05/27/17 09/09/17 History Olmesartan/Amlodipin/Hcthiazid 1 each PO DAILY 05/27/17 09/09/17 History [Tribenzor 40-5-25 mg Tablet] Ondansetron [Ondansetron Odt] 4 mg PO Q4H PRN #10 tab.rapdis 05/27/17 09/09/17 Rx Saxagliptin HCl/Metformin HCl 1 each PO DAILY 05/27/17 09/09/17 History [Kombiglyze Xr 5-500 mg Tablet] Tamsulosin [Flomax] 0.4 mg PO DAILY 05/27/17 09/09/17 History predniSONE TAB [PredniSONE] 5 mg PO DAILY 05/27/17 09/09/17 History Allergies Allergy/AdvReac Type Severity Reaction Status Date / Time No Known Allergies Allergy Verified 03/14/16 18:13 Exam ([place]) H&P - Constitutional Vitals: Period Temp Pulse Resp BP Sys/Lopez Pulse Ox Last 24 Hr 96.7 F-97.9 F 59-75 16-20 88-127/52-79 93-99 Exam: Patient is alert and responsive in no acute distress. Pupils equal round reactive to light and accommodation. Extraocular movements intact. Oropharynx with a class III Mallampati exam. Neck is supple without adenopathy or thyromegaly. No supraclavicular adenopathy is noted. Chest with symmetrical breath sounds without focal wheeze, rhonchi, or rales. Cardiac exam reveals a regular rhythm without murmur or gallop. Abdomen soft nontender without palpable hepatosplenomegaly or mass. Extremities are without clubbing, cyanosis , or edema. Neurologically, he is grossly intact. He moves all extremities with good strength. He answered all questions appropriately. Medical,Surgical,& Family Hx - Medical History Cardio: History of: Hypertension Neurology: History of: Cerebrovascular Accident (right sided weakness) Endocrine: History of: Diabetes Mellitus (NIDDM), Dyslipidemia Gastrointestinal: History of: GERD (GERD) Musculoskeletal: History of: Back/Neck Problems (Arthritis), Musculoskeletal Cancer (ARTHRITIS), Musculoskeletal Problems (Arthritis) - Surgical History Cardiac Surgeries: Sugical HX of: Cardiac Catheterization (May 2016) Thoracic Surgeries: Patient denies;: Organ Transplant Neurologic Surgeries: Patient denies: Neurologic Surgery Abdominal Surgeries: Surgical HX of: Abdominal Surgery, Appendectomy Orthopedic Surgeries: Surgical HX of;: Orthopedic Surgery (C2) - Family History Family History: Reports;: Family Diabetes, Family Heart Disease, Family Hypertension, Family Stroke - Social History Smoking Status: Never smoker Frequency of Alcohol Use: None Type of Drug Use: None Results - Labs CBC & BMP: 09/11/17 03:02 09/11/17 03:02 Lab Results: I have reviewed the past 24 hour labs Quality Measures - VTE Contraindication to Pharmacological VTE Prophylaxis: High Risk of Bleeding
[2017-09-11] MEDS: ENOXAPARIN 40 MG/0.4 ML SYRINGE SUBCUT SCH (17:30)
[2017-09-11] MEDS: ROSUVASTATIN 10 MG TABLET PO SCH (20:52)
[2017-09-11] MEDS: cloNIDine 0.1 MG TABLET PO SCH (20:55)
--- NOTE | 2017-09-11 20:56 | Internal Med Progress Note ---
Assessment and Plan (1) Chest pain Problem details: chest tightness Status: Resolved Current Visit: Yes (2) History of stroke Status: Chronic Current Visit: Yes (3) CAD (coronary artery disease) Status: Chronic Current Visit: Yes Qualifiers: Coronary Disease-Associated Artery/Lesion type: [place] artery [place] vs. transplanted heart: [place] heart Associated angina: without angina Qualified Code(s): I25.10 - Atherosclerotic heart disease of [place] coronary artery without angina pectoris (4) Diabetes Status: Chronic Current Visit: Yes Qualifiers: Diabetes mellitus type: type 2 Diabetes mellitus complication status: without complication Diabetes mellitus intermediate insulin use: without intermediate use Qualified Code(s): E11.9 - Type 2 diabetes mellitus without complications (5) Suspected sleep apnea Status: Chronic Current Visit: Yes Internal Medicine - PN: Subj Interval history: Mr. Barraza is a 62 year old male with history of HTN, stroke with right sided weakness, dyslipidemia, DM, CAD/stenting last year per Dr. Antonio, OA, degenerative disc disease, recent cervical spinal surgery, who presented to ER with acute exertional chest tightness. He reports having no pain last year when coronary arterial stent placed. No history of asthma. Sep 10: He is status post cardiac cath and needs CABG. Extensive disease, including LAD. He will be scheduled next week. He denies chest pain. Sep 11: He is more comfortable today and will have heart surgery Friday morning. Overnight sleep study will be arranged for outpatient in a few weeks. Exam (Progress Note) - Constitutional Vitals: Period Temp Pulse Resp BP Sys/Lopez Pulse Ox Last 24 Hr 96.7 F-97.9 F 60-73 16-20 88-105/52-66 93-98 General appearance: no acute distress - Respiratory Respiratory exam: Present: clear to auscultation bilaterally - Cardiovascular Cardiovascular exam: Present: regular rate and rhythm - GI/Abdominal GI/Abdominal exam: Present: soft. Absent: tenderness - Extremities Exam Extremities exam: Absent: edema - Neurological Exam Neurological exam: Present: alert - Psychiatric Psychiatric exam: Present: normal mood - Skin Skin exam: Present: warm, dry Results - Labs CBC & BMP: 09/11/17 03:02 09/11/17 03:02 Quality Measures - VTE Contraindication to Pharmacological VTE Prophylaxis: High Risk of Bleeding
[2017-09-11] MEDS ORDERED: amLODIPine 5 MG TABLET PO PRN (21:07)
[2017-09-12] MEDS: NITROGLYCERIN 2% OINT 1 INCH/GM PACK TOP SCH ×4 (00:10→19:13)
[2017-09-12 05:54] LABS: Basophils % 0.3 % (0.0-0.8); Eosinophils # 0.2 10*3/uL (0.0-0.87); Eosinophils % 2.6 % (0.00-10.9); Hemoglobin 10.9 GM/DL (14.0-18.0); Immature Granulocytes % 0.4 %; Immature Granulocytes Absolute 0.03 #; Lymphocytes # 2.1 10*3/uL (1.4-4.0); Lymphocytes % 29.2 % (21.2-54.2); Mean Corpuscular HGB Conc 34.1 GM/DL (32-36); Mean Corpuscular Hemoglobin 31 PG (27-34); Mean Corpuscular Volume 89.6 FL (87-102); Mean Platelet Volume 11.4 FL (9.6-12.0); Monocytes # 0.7 10*3/uL (0.11-0.8); Monocytes % 9.8 % (1.7-12.7); Neutrophils # 4.2 10*3/uL (1.4-7.4); Neutrophils % 57.7 % (38.7-73.9); Platelet Count 171 T/CUMM (130-400); Red Blood Count 3.57 MC/CUMM (3.8-5.5); Red Cell Distribution Width 14.7 % (9.3-17.3); White Blood Count 7.3 T/CUMM (4-12)
[2017-09-12 07:00] LABS: Calcium 8.3 MG/DL (8.5-10.1); Osmolality,Calculated 278.4 MOS/KG (273-304); Potassium 3.4 MMOL/L (3.5-5.1)
[2017-09-12] MEDS: INSULIN REGULAR 100 UNIT/ML SUBCUT SCH ×4 (08:54→21:25)
[2017-09-12] MEDS: PHENYTOIN ER 100 MG CAPSULE PO SCH ×2 (08:57→21:29)
[2017-09-12] MEDS: DOCUSATE SODIUM 100 MG CAPSULE PO SCH ×2 (08:57→21:29)
[2017-09-12] MEDS: sitaGLIPtin 100 MG TABLET PO SCH (08:57)
[2017-09-12] MEDS: MELOXICAM 7.5 MG TABLET PO SCH (08:57)
[2017-09-12] MEDS: OLMESARTAN 20 MG TABLET PO SCH (08:57)
[2017-09-12] MEDS: ASPIRIN CHEW 81 MG TABLET PO SCH (08:58)
[2017-09-12] MEDS: CETIRIZINE 10 MG TABLET PO SCH (08:58)
[2017-09-12] MEDS: FUROSEMIDE 20 MG TABLET PO SCH (08:58)
[2017-09-12] MEDS: POTASSIUM CHLORIDE 20 MEQ TABLET PO SCH ×2 (08:58→21:29)
[2017-09-12] MEDS: predniSONE 5 MG TABLET PO SCH (08:58)
[2017-09-12] MEDS: SERTRALINE 100 MG TABLET PO SCH (08:58)
[2017-09-12] MEDS: PANTOPRAZOLE 40 MG TABLET PO SCH (08:59)
[2017-09-12] MEDS ORDERED: DEXTROSE 50% 25 GM/50 ML VIAL IV PRN (09:42)
[2017-09-12] MEDS ORDERED: GLUCAGON 1 MG VIAL IM PRN (09:42)
--- NOTE | 2017-09-12 09:42 | Cardiothoracic Progress Note ---
Cardiothoracic Subjective Interval history: Patient is ready for surgery on Friday. Exam (Progress Note) - Constitutional Vitals: Period Temp Pulse Resp BP Sys/Lopez Pulse Ox Last 24 Hr 97.3 F-98.1 F 64-73 16-20 91-105/54-70 93-98 Result/EKG - Labs CBC & BMP: 09/12/17 05:21 09/12/17 05:21 Labs: Laboratory Results - last 24 hr 09/11/17 09/11/17 09/12/17 11:25 16:45 00:55 WBC RBC Hgb Hct MCV MCH MCHC RDW Plt Count MPV Neut % (Auto) Lymph % (Auto) [place] % (Auto) Eos % (Auto) Baso % (Auto) Neut # (Auto) Lymph # (Auto) [place] # (Auto) Eos # (Auto) Baso # (Auto) Immature Gran % Nucleated RBC % Immature Gran # Nucleated RBCs # Immature Plt Fraction Sodium Potassium Chloride Carbon Dioxide Anion Gap BUN Creatinine GFR Calculation BUN/Creatinine Ratio Glucose POC Glucose 99 123 H 107 H Calculated Osmolality Calcium Magnesium 09/12/17 09/12/17 09/12/17 05:21 05:21 05:43 WBC 7.3 RBC 3.57 L Hgb 10.9 L Hct 32.0 L MCV 89.6 MCH 31 MCHC 34.1 RDW 14.7 Plt Count 171 MPV 11.4 Neut % (Auto) 57.7 Lymph % (Auto) 29.2 [place] % (Auto) 9.8 Eos % (Auto) 2.6 Baso % (Auto) 0.3 Neut # (Auto) 4.2 Lymph # (Auto) 2.1 [place] # (Auto) 0.7 Eos # (Auto) 0.2 Baso # (Auto) 0.0 Immature Gran % 0.4 Nucleated RBC % 0.0 Immature Gran # 0.03 Nucleated RBCs # 0.00 Immature Plt Fraction 0.0 Sodium 140 Potassium 3.4 L Chloride 103 Carbon Dioxide 33 H Anion Gap 7.4 BUN 13 Creatinine 1.00 GFR Calculation 119 BUN/Creatinine Ratio 13.00 Glucose 95 POC Glucose 113 H Calculated Osmolality 278.4 Calcium 8.3 L Magnesium 2.0 Quality Measures - VTE Contraindication to Pharmacological VTE Prophylaxis: High Risk of Bleeding
--- NOTE | 2017-09-12 10:05 | Order Completion Report ---
See report scanned to EMR
[2017-09-12] MEDS: SODIUM CHLORIDE 0.9% 1,000 ML IV SCH (11:05)
--- NOTE | 2017-09-12 11:39 | Sleep Medicine Progress Note ---
Assessment and Plan (1) Suspected sleep apnea Status: Chronic Assessment and plan: Patient does have moderate obstructive sleep apnea by home sleep testing. He will be started on auto titration CPAP while hospitalized. Current Visit: Yes (2) Cerebrovascular accident Status: Chronic Current Visit: No (3) CAD (coronary artery disease) Status: Chronic Current Visit: Yes Qualifiers: Coronary Disease-Associated Artery/Lesion type: [place] artery [place] vs. transplanted heart: [place] heart Associated angina: without angina Qualified Code(s): I25.10 - Atherosclerotic heart disease of [place] coronary artery without angina pectoris (4) Diabetes Status: Chronic Current Visit: Yes Qualifiers: Diabetes mellitus type: type 2 Diabetes mellitus complication status: without complication Diabetes mellitus long term care pharmacist insulin use: without usp use Qualified Code(s): E11.9 - Type 2 diabetes mellitus without complications Sleep Medicine Subjective Interval history: Patient did have significant obstructive sleep apnea on HST having a diagnostic AHI of 27 with O2 desaturation. His [employer] [facility] insurance will not accept HST evaluation for CPAP prescription. He will need outpatient diagnostic polysomnography after discharge. We will go ahead and treat him empirically with auto titration CPAP while hospitalized. I discussed all findings with him to his understanding and he is willing to proceed. Exam (Progress Note) - Constitutional Vitals: Period Temp Pulse Resp BP Sys/Lopez Pulse Ox Last 24 Hr 97.3 F-98.1 F 64-73 16-20 91-105/54-70 93-98 Exam: He is alert and responsive in no acute distress. Results - Labs CBC & BMP: 09/12/17 05:21 09/12/17 05:21 Lab Results: I have reviewed the past 24 hour labs
--- NOTE | 2017-09-12 12:33 | Cardiology Progress Note ---
Assessment and Plan (1) Chest pain Problem details: chest tightness Status: Resolved Assessment and plan: See impression/plan below. Current Visit: Yes (2) Hyperlipidemia Status: Chronic Assessment and plan: See impression/plan below. Current Visit: Yes (3) Suspected sleep apnea Status: Chronic Assessment and plan: See impression/plan below. Current Visit: Yes (4) GERD (gastroesophageal reflux disease) Status: Acute Current Visit: Yes (5) CAD (coronary artery disease) Status: Chronic Assessment and plan: See impression/plan below. Current Visit: Yes Qualifiers: Coronary Disease-Associated Artery/Lesion type: [place] artery [place] vs. transplanted heart: [place] heart Associated angina: without angina Qualified Code(s): I25.10 - Atherosclerotic heart disease of [place] coronary artery without angina pectoris (6) Diabetes Status: Chronic Assessment and plan: See impression/plan below. 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 Current Visit: Yes (8) Seizure disorder Status: Chronic Assessment and plan: See impression/plan below. Current Visit: No Cardiology - PN: Subj Interval history: Cardiology note 62-year-old man with unstable angina and severe proximal LAD and diagonal disease. Ejection fraction 55%. Bypass surgery is scheduled for Friday. Plavix has been stopped in preparation for surgery. No chest pain. Telemetry shows sinus rhythm with rare PVC only. O2 sat 97% on room air. Regular rhythm no murmur or gallop. Abdomen soft benign. Right groin soft and dry. No bruit or hematoma. Distal pulses 2+ symmetric. Lab data today White count 7.3 hemoglobin 10.9 hematocrit 32.0 Sodium 140 potassium 3.4 chloride 103 CO2 33 BUN 13 creatinine 1.0 glucose 95 magnesium 2.0 Impression Severe proximal LAD and diagonal disease Patent mid circumflex stent site from July 2016 Ejection fraction 55% Chronic hypertension type 2 diabetes Hyperlipidemia Status post stroke 2009 with seizure post stroke now on Dilantin Obesity echo showed ejection fraction 55% with grade 1 diastolic dysfunction, mildly dilated left atrium, aortic valve sclerosis, mild TR PA pressure 40 and no effusion Plan Holding Plavix Aspirin Lovenox Norvasc Crestor CABG Friday Exam (Progress Note) - Constitutional Vitals: Period Temp Pulse Resp BP Sys/Lopez Pulse Ox Last 24 Hr 97.3 F-98.1 F 60-73 16-180 91-132/54-71 93-99 Result/EKG - Labs CBC & BMP: 09/12/17 05:21 09/12/17 05:21 Labs: Laboratory Results - last 24 hr 09/11/17 09/12/17 09/12/17 16:45 00:55 05:21 WBC 7.3 RBC 3.57 L Hgb 10.9 L Hct 32.0 L MCV 89.6 MCH 31 MCHC 34.1 RDW 14.7 Plt Count 171 MPV 11.4 Neut % (Auto) 57.7 Lymph % (Auto) 29.2 [place] % (Auto) 9.8 Eos % (Auto) 2.6 Baso % (Auto) 0.3 Neut # (Auto) 4.2 Lymph # (Auto) 2.1 [place] # (Auto) 0.7 Eos # (Auto) 0.2 Baso # (Auto) 0.0 Immature Gran % 0.4 Nucleated RBC % 0.0 Immature Gran # 0.03 Nucleated RBCs # 0.00 Immature Plt Fraction 0.0 Sodium Potassium Chloride Carbon Dioxide Anion Gap BUN Creatinine GFR Calculation BUN/Creatinine Ratio Glucose POC Glucose 123 H 107 H Calculated Osmolality Calcium Magnesium 09/12/17 09/12/17 09/12/17 05:21 05:43 11:39 WBC RBC Hgb Hct MCV MCH MCHC RDW Plt Count MPV Neut % (Auto) Lymph % (Auto) [place] % (Auto) Eos % (Auto) Baso % (Auto) Neut # (Auto) Lymph # (Auto) [place] # (Auto) Eos # (Auto) Baso # (Auto) Immature Gran % Nucleated RBC % Immature Gran # Nucleated RBCs # Immature Plt Fraction Sodium 140 Potassium 3.4 L Chloride 103 Carbon Dioxide 33 H Anion Gap 7.4 BUN 13 Creatinine 1.00 GFR Calculation 119 BUN/Creatinine Ratio 13.00 Glucose 95 POC Glucose 113 H 133 H Calculated Osmolality 278.4 Calcium 8.3 L Magnesium 2.0 Quality Measures - VTE Contraindication to Pharmacological VTE Prophylaxis: High Risk of Bleeding
[2017-09-12] MEDS: ENOXAPARIN 40 MG/0.4 ML SYRINGE SUBCUT SCH ×2 (16:35→19:13)
--- NOTE | 2017-09-12 18:48 | Internal Med Progress Note ---
Assessment and Plan (1) Chest pain Problem details: chest tightness Status: Resolved Current Visit: Yes (2) History of stroke Status: Chronic Current Visit: Yes (3) CAD (coronary artery disease) Status: Chronic Current Visit: Yes Qualifiers: Coronary Disease-Associated Artery/Lesion type: [place] artery [place] vs. transplanted heart: [place] heart Associated angina: without angina Qualified Code(s): I25.10 - Atherosclerotic heart disease of [place] coronary artery without angina pectoris (4) Diabetes Status: Chronic Current Visit: Yes Qualifiers: Diabetes mellitus type: type 2 Diabetes mellitus complication status: without complication Diabetes mellitus fci insulin use: without fci use Qualified Code(s): E11.9 - Type 2 diabetes mellitus without complications (5) Suspected sleep apnea Status: Chronic Current Visit: Yes Internal Medicine - PN: Subj Interval history: Mr. Barraza is a 62 year old male with history of HTN, stroke with right sided weakness, dyslipidemia, DM, CAD/stenting last year per Dr. Antonio, OA, degenerative disc disease, recent cervical spinal surgery, who presented to ER with acute exertional chest tightness. He reports having no pain last year when coronary arterial stent placed. No history of asthma. Sep 10: He is status post cardiac cath and needs CABG. Extensive disease, including LAD. He will be scheduled next week. He denies chest pain. Sep 11: He is more comfortable today and will have heart surgery Friday morning. Overnight sleep study will be arranged for outpatient in a few weeks. Sep 12: He is resting comfortably. Exam (Progress Note) - Constitutional Vitals: Period Temp Pulse Resp BP Sys/Lopez Pulse Ox Last 24 Hr 97.3 F-98.1 F 60-72 16-180 91-132/57-71 93-99 General appearance: no acute distress - Respiratory Respiratory exam: Present: clear to auscultation bilaterally - Cardiovascular Cardiovascular exam: Present: regular rate and rhythm - GI/Abdominal GI/Abdominal exam: Present: soft. Absent: tenderness - Extremities Exam Extremities exam: Absent: edema - Neurological Exam Neurological exam: Present: alert, oriented X3 - Psychiatric Psychiatric exam: Present: normal mood - Skin Skin exam: Present: warm, dry Results - Labs CBC & BMP: 09/14/17 03:25 09/14/17 03:25 Quality Measures - VTE Contraindication to Pharmacological VTE Prophylaxis: High Risk of Bleeding
[2017-09-12] MEDS: CHLORHEXIDINE 0.12% ORAL RINSE 60 ML BOTTLE SWISH/SPIT SCH (21:28)
[2017-09-12] MEDS: ROSUVASTATIN 10 MG TABLET PO SCH (21:29)
[2017-09-13] MEDS: NITROGLYCERIN 2% OINT 1 INCH/GM PACK TOP SCH ×4 (02:36→17:25)
[2017-09-13 04:10] LABS: Basophils % 0.3 % (0.0-0.8); Eosinophils # 0.2 10*3/uL (0.0-0.87); Hematocrit 32.1 VOL% (42.0-52.0); Hemoglobin 10.8 GM/DL (14.0-18.0); Immature Granulocytes % 0.5 %; Immature Granulocytes Absolute 0.04 #; Lymphocytes # 2.5 10*3/uL (1.4-4.0); Lymphocytes % 33.5 % (21.2-54.2); Mean Corpuscular HGB Conc 33.6 GM/DL (32-36); Mean Corpuscular Hemoglobin 30 PG (27-34); Mean Corpuscular Volume 89.9 FL (87-102); Mean Platelet Volume 11.7 FL (9.6-12.0); Monocytes # 0.7 10*3/uL (0.11-0.8); Monocytes % 9.8 % (1.7-12.7); Neutrophils # 3.9 10*3/uL (1.4-7.4); Neutrophils % 52.9 % (38.7-73.9); Platelet Count 157 T/CUMM (130-400); Red Blood Count 3.57 MC/CUMM (3.8-5.5); Red Cell Distribution Width 14.6 % (9.3-17.3); White Blood Count 7.4 T/CUMM (4-12)
[2017-09-13 04:36] LABS: Calcium 8.4 MG/DL (8.5-10.1); Osmolality,Calculated 279.3 MOS/KG (273-304); Potassium 3.7 MMOL/L (3.5-5.1)
[2017-09-13] MEDS: OLMESARTAN 20 MG TABLET PO SCH (08:37)
[2017-09-13] MEDS: POTASSIUM CHLORIDE 20 MEQ TABLET PO SCH ×2 (08:38→20:37)
[2017-09-13] MEDS: SERTRALINE 100 MG TABLET PO SCH (08:38)
[2017-09-13] MEDS: MELOXICAM 7.5 MG TABLET PO SCH (08:38)
[2017-09-13] MEDS: PANTOPRAZOLE 40 MG TABLET PO SCH (08:38)
[2017-09-13] MEDS: DOCUSATE SODIUM 100 MG CAPSULE PO SCH ×2 (08:38→20:37)
[2017-09-13] MEDS: ASPIRIN CHEW 81 MG TABLET PO SCH (08:38)
[2017-09-13] MEDS: INSULIN REGULAR 100 UNIT/ML SUBCUT SCH ×4 (08:39→20:37)
[2017-09-13] MEDS: sitaGLIPtin 100 MG TABLET PO SCH (08:39)
[2017-09-13] MEDS: CETIRIZINE 10 MG TABLET PO SCH (08:39)
[2017-09-13] MEDS: predniSONE 5 MG TABLET PO SCH (08:39)
[2017-09-13] MEDS: PHENYTOIN ER 100 MG CAPSULE PO SCH ×2 (08:39→20:36)
[2017-09-13] MEDS: FUROSEMIDE 20 MG TABLET PO SCH (08:39)
[2017-09-13] MEDS: CHLORHEXIDINE 0.12% ORAL RINSE 60 ML BOTTLE SWISH/SPIT SCH ×2 (08:40→20:41)
--- NOTE | 2017-09-13 09:43 | Cardiothoracic Progress Note ---
Cardiothoracic Subjective Interval history: Patient is ready for surgery on Friday. Exam (Progress Note) - Constitutional Vitals: Period Temp Pulse Resp BP Sys/Lopez Pulse Ox Last 24 Hr 96.8 F-98.6 F 54-74 16-180 101-133/57-76 94-99 Result/EKG - Labs CBC & BMP: 09/13/17 03:29 09/13/17 03:30 Labs: Laboratory Results - last 24 hr 09/12/17 09/12/17 09/12/17 11:39 16:01 21:20 WBC RBC Hgb Hct MCV MCH MCHC RDW Plt Count MPV Neut % (Auto) Lymph % (Auto) [place] % (Auto) Eos % (Auto) Baso % (Auto) Neut # (Auto) Lymph # (Auto) [place] # (Auto) Eos # (Auto) Baso # (Auto) Immature Gran % Nucleated RBC % Immature Gran # Nucleated RBCs # Immature Plt Fraction Sodium Potassium Chloride Carbon Dioxide Anion Gap BUN Creatinine GFR Calculation BUN/Creatinine Ratio Glucose POC Glucose 133 H 169 H 169 H Calculated Osmolality Calcium Magnesium 09/13/17 09/13/17 09/13/17 03:29 03:30 07:12 WBC 7.4 RBC 3.57 L Hgb 10.8 L Hct 32.1 L MCV 89.9 MCH 30 MCHC 33.6 RDW 14.6 Plt Count 157 MPV 11.7 Neut % (Auto) 52.9 Lymph % (Auto) 33.5 [place] % (Auto) 9.8 Eos % (Auto) 3.0 Baso % (Auto) 0.3 Neut # (Auto) 3.9 Lymph # (Auto) 2.5 [place] # (Auto) 0.7 Eos # (Auto) 0.2 Baso # (Auto) 0.0 Immature Gran % 0.5 Nucleated RBC % 0.0 Immature Gran # 0.04 Nucleated RBCs # 0.00 Immature Plt Fraction 0.0 Sodium 141 Potassium 3.7 Chloride 105 Carbon Dioxide 29 Anion Gap 10.7 BUN 11 Creatinine 0.90 GFR Calculation 136 BUN/Creatinine Ratio 12.00 Glucose 92 POC Glucose 100 Calculated Osmolality 279.3 Calcium 8.4 L Magnesium 2.0 Quality Measures - VTE Contraindication to Pharmacological VTE Prophylaxis: High Risk of Bleeding
--- NOTE | 2017-09-13 11:13 | Internal Med Progress Note ---
Assessment and Plan (1) Chest pain Problem details: chest tightness Status: Resolved Current Visit: Yes (2) History of stroke Status: Chronic Current Visit: Yes (3) CAD (coronary artery disease) Status: Chronic Current Visit: Yes Qualifiers: Coronary Disease-Associated Artery/Lesion type: [place] artery [place] vs. transplanted heart: [place] heart Associated angina: without angina Qualified Code(s): I25.10 - Atherosclerotic heart disease of [place] coronary artery without angina pectoris (4) Diabetes Status: Chronic Current Visit: Yes Qualifiers: Diabetes mellitus type: type 2 Diabetes mellitus complication status: without complication Diabetes mellitus prison insulin use: without prison use Qualified Code(s): E11.9 - Type 2 diabetes mellitus without complications (5) Suspected sleep apnea Status: Chronic Current Visit: Yes Internal Medicine - PN: Subj Interval history: Mr. Barraza is a 62 year old male with history of HTN, stroke with right sided weakness, dyslipidemia, DM, CAD/stenting last year per Dr. Antonio, OA, degenerative disc disease, recent cervical spinal surgery, who presented to ER with acute exertional chest tightness. He reports having no pain last year when coronary arterial stent placed. No history of asthma. Sep 10: He is status post cardiac cath and needs CABG. Extensive disease, including LAD. He will be scheduled next week. He denies chest pain. Aug 12: He is more comfortable today and will have heart surgery Friday morning. Overnight sleep study will be arranged for outpatient in a few weeks. Sep 12: He is resting comfortably. Aug 14: He is clinically stable and is feeling much better today Exam (Progress Note) - Constitutional Vitals: Period Temp Pulse Resp BP Sys/Lopez Pulse Ox Last 24 Hr 96.8 F-98.6 F 54-74 16-180 101-133/57-76 94-99 Exam: General appearance: no acute distress - Respiratory Respiratory exam: Present: clear to auscultation bilaterally - Cardiovascular Cardiovascular exam: Present: regular rate and rhythm - GI/Abdominal GI/Abdominal exam: Present: soft. Absent: tenderness - Extremities Exam Extremities exam: Absent: edema - Neurological Exam Neurological exam: Present: alert, oriented X3 - Psychiatric Psychiatric exam: Present: normal mood - Skin Skin exam: Present: warm, dry Results - Labs CBC & BMP: 09/14/17 03:25 09/14/17 03:25 Quality Measures - VTE Contraindication to Pharmacological VTE Prophylaxis: High Risk of Bleeding
--- NOTE | 2017-09-13 14:24 | Cardiology Progress Note ---
Assessment and Plan (1) Chest pain Problem details: chest tightness Status: Resolved Assessment and plan: See impression/plan below. Current Visit: Yes (2) Hyperlipidemia Status: Chronic Assessment and plan: See impression/plan below. Current Visit: Yes (3) Suspected sleep apnea Status: Chronic Assessment and plan: See impression/plan below. Current Visit: Yes (4) GERD (gastroesophageal reflux disease) Status: Acute Current Visit: Yes (5) CAD (coronary artery disease) Status: Chronic Assessment and plan: See impression/plan below. Current Visit: Yes Qualifiers: Coronary Disease-Associated Artery/Lesion type: [place] artery [place] vs. transplanted heart: [place] heart Associated angina: without angina Qualified Code(s): I25.10 - Atherosclerotic heart disease of [place] coronary artery without angina pectoris (6) Diabetes Status: Chronic Assessment and plan: See impression/plan below. 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 Current Visit: Yes (8) Seizure disorder Status: Chronic Assessment and plan: See impression/plan below. Current Visit: No Cardiology - PN: Subj Interval history: Cardiology note 62-year-old man with unstable angina and severe proximal LAD and diagonal disease. Ejection fraction 55%. Denies chest pain or shortness of breath. Telemetry shows sinus rhythm with rare PACs. O2 sat 98% on room air. Blood pressure 126/80 Regular rhythm no murmur or gallop Clear lungs Abdomen soft benign Right groin soft and dry. No bruit or hematoma. Distal pulses 2+. Impression Severe proximal LAD and diagonal disease. Significant myocardium at risk. Ejection fraction 55%. Patent mid circumflex stent site from July 2016 Chronic hypertension Type 2 diabetes Hyperlipidemia Status post stroke 2009 with seizure post stroke, now on Dilantin Obesity Echo showed EF 55% with grade 1 diastolic dysfunction, mildly dilated left atrium, aortic valve sclerosis, mild TR PA pressure 40 Plan Holding Plavix Aspirin Lovenox Norvasc Crestor CABG Friday Exam (Progress Note) - Constitutional Vitals: Period Temp Pulse Resp BP Sys/Lopez Pulse Ox Last 24 Hr 96.8 F-98.6 F 54-74 16-20 101-133/57-76 94-99 Result/EKG - Labs CBC & BMP: 09/13/17 03:29 09/13/17 03:30 Labs: Laboratory Results - last 24 hr 09/12/17 09/12/17 09/13/17 16:01 21:20 03:29 WBC 7.4 RBC 3.57 L Hgb 10.8 L Hct 32.1 L MCV 89.9 MCH 30 MCHC 33.6 RDW 14.6 Plt Count 157 MPV 11.7 Neut % (Auto) 52.9 Lymph % (Auto) 33.5 [place] % (Auto) 9.8 Eos % (Auto) 3.0 Baso % (Auto) 0.3 Neut # (Auto) 3.9 Lymph # (Auto) 2.5 [place] # (Auto) 0.7 Eos # (Auto) 0.2 Baso # (Auto) 0.0 Immature Gran % 0.5 Nucleated RBC % 0.0 Immature Gran # 0.04 Nucleated RBCs # 0.00 Immature Plt Fraction 0.0 Sodium Potassium Chloride Carbon Dioxide Anion Gap BUN Creatinine GFR Calculation BUN/Creatinine Ratio Glucose POC Glucose 169 H 169 H Calculated Osmolality Calcium Magnesium 09/13/17 09/13/17 09/13/17 03:30 07:12 11:53 WBC RBC Hgb Hct MCV MCH MCHC RDW Plt Count MPV Neut % (Auto) Lymph % (Auto) [place] % (Auto) Eos % (Auto) Baso % (Auto) Neut # (Auto) Lymph # (Auto) [place] # (Auto) Eos # (Auto) Baso # (Auto) Immature Gran % Nucleated RBC % Immature Gran # Nucleated RBCs # Immature Plt Fraction Sodium 141 Potassium 3.7 Chloride 105 Carbon Dioxide 29 Anion Gap 10.7 BUN 11 Creatinine 0.90 GFR Calculation 136 BUN/Creatinine Ratio 12.00 Glucose 92 POC Glucose 100 122 H Calculated Osmolality 279.3 Calcium 8.4 L Magnesium 2.0 Quality Measures - VTE Contraindication to Pharmacological VTE Prophylaxis: High Risk of Bleeding
[2017-09-13] MEDS: SODIUM CHLORIDE 0.9% 1,000 ML IV SCH (14:36)
[2017-09-13] MEDS: ENOXAPARIN 40 MG/0.4 ML SYRINGE SUBCUT SCH (18:30)
[2017-09-13] MEDS: ROSUVASTATIN 10 MG TABLET PO SCH (20:37)
[2017-09-14] MEDS: NITROGLYCERIN 2% OINT 1 INCH/GM PACK TOP SCH ×4 (04:26→19:05)
[2017-09-14 04:49] LABS: Basophils % 0.5 % (0.0-0.8); Eosinophils # 0.3 10*3/uL (0.0-0.87); Eosinophils % 3.2 % (0.00-10.9); Hematocrit 32.2 VOL% (42.0-52.0); Hemoglobin 10.7 GM/DL (14.0-18.0); Immature Granulocytes % 0.6 %; Immature Granulocytes Absolute 0.05 #; Lymphocytes # 2.4 10*3/uL (1.4-4.0); Lymphocytes % 29.5 % (21.2-54.2); Mean Corpuscular HGB Conc 33.2 GM/DL (32-36); Mean Corpuscular Hemoglobin 30 PG (27-34); Mean Platelet Volume 12.1 FL (9.6-12.0); Monocytes # 0.7 10*3/uL (0.11-0.8); Monocytes % 8.8 % (1.7-12.7); Neutrophils # 4.6 10*3/uL (1.4-7.4); Neutrophils % 57.4 % (38.7-73.9); Platelet Count 170 T/CUMM (130-400); Red Blood Count 3.54 MC/CUMM (3.8-5.5); Red Cell Distribution Width 15.1 % (9.3-17.3)
[2017-09-14 05:17] LABS: Calcium 8.4 MG/DL (8.5-10.1); Magnesium 2.4 MG/DL (1.8-2.4); Osmolality,Calculated 281.1 MOS/KG (273-304); Potassium 4.6 MMOL/L (3.5-5.1)
--- NOTE | 2017-09-14 07:54 | Cardiothoracic Progress Note ---
Cardiothoracic Subjective Interval history: Patient is ready for surgery in the morning. Laboratory and x-ray examinations all look okay. Patient is stable and pain-free. Exam (Progress Note) - Constitutional Vitals: Period Temp Pulse Resp BP Sys/Lopez Pulse Ox Last 24 Hr 96.9 F-98.7 F 57-63 18-20 114-134/71-92 97-98 Result/EKG - Labs CBC & BMP: 09/14/17 03:25 09/14/17 03:25 Labs: Laboratory Results - last 24 hr 09/13/17 09/13/17 09/13/17 11:53 16:22 19:45 WBC RBC Hgb Hct MCV MCH MCHC RDW Plt Count MPV Neut % (Auto) Lymph % (Auto) [place] % (Auto) Eos % (Auto) Baso % (Auto) Neut # (Auto) Lymph # (Auto) [place] # (Auto) Eos # (Auto) Baso # (Auto) Immature Gran % Nucleated RBC % Immature Gran # Nucleated RBCs # Immature Plt Fraction Sodium Potassium Chloride Carbon Dioxide Anion Gap BUN Creatinine GFR Calculation BUN/Creatinine Ratio Glucose POC Glucose 122 H 104 117 H Calculated Osmolality Calcium Magnesium Blood Type Antibody Screen Crossmatch 09/14/17 09/14/17 09/14/17 03:25 03:25 03:25 WBC 8.0 RBC 3.54 L Hgb 10.7 L Hct 32.2 L MCV 91.0 MCH 30 MCHC 33.2 RDW 15.1 Plt Count 170 MPV 12.1 H Neut % (Auto) 57.4 Lymph % (Auto) 29.5 [place] % (Auto) 8.8 Eos % (Auto) 3.2 Baso % (Auto) 0.5 Neut # (Auto) 4.6 Lymph # (Auto) 2.4 [place] # (Auto) 0.7 Eos # (Auto) 0.3 Baso # (Auto) 0.0 Immature Gran % 0.6 Nucleated RBC % 0.0 Immature Gran # 0.05 Nucleated RBCs # 0.00 Immature Plt Fraction 0.0 Sodium 142 Potassium 4.6 Chloride 106 Carbon Dioxide 30 Anion Gap 10.6 BUN 12 Creatinine 0.90 GFR Calculation 135 BUN/Creatinine Ratio 13.00 Glucose 88 POC Glucose Calculated Osmolality 281.1 Calcium 8.4 L Magnesium 2.4 Blood Type O POSITIVE Antibody Screen Negative Crossmatch See Detail 09/14/17 09/14/17 07:37 Unknown WBC RBC Hgb Hct MCV MCH MCHC RDW Plt Count MPV Neut % (Auto) Lymph % (Auto) [place] % (Auto) Eos % (Auto) Baso % (Auto) Neut # (Auto) Lymph # (Auto) [place] # (Auto) Eos # (Auto) Baso # (Auto) Immature Gran % Nucleated RBC % Immature Gran # Nucleated RBCs # Immature Plt Fraction Sodium Potassium Chloride Carbon Dioxide Anion Gap BUN Creatinine GFR Calculation BUN/Creatinine Ratio Glucose POC Glucose 95 Calculated Osmolality Calcium Magnesium Blood Type O POSITIVE Antibody Screen Crossmatch Quality Measures - VTE Contraindication to Pharmacological VTE Prophylaxis: High Risk of Bleeding
[2017-09-14] MEDS: OLMESARTAN 20 MG TABLET PO SCH (08:28)
[2017-09-14] MEDS: ASPIRIN CHEW 81 MG TABLET PO SCH (08:30)
[2017-09-14] MEDS: DOCUSATE SODIUM 100 MG CAPSULE PO SCH ×2 (08:30→21:35)
[2017-09-14] MEDS: MELOXICAM 7.5 MG TABLET PO SCH (08:31)
[2017-09-14] MEDS: PHENYTOIN ER 100 MG CAPSULE PO SCH ×2 (08:31→21:35)
[2017-09-14] MEDS: FUROSEMIDE 20 MG TABLET PO SCH (08:31)
[2017-09-14] MEDS: SERTRALINE 100 MG TABLET PO SCH (08:31)
[2017-09-14] MEDS: CETIRIZINE 10 MG TABLET PO SCH (08:31)
[2017-09-14] MEDS: predniSONE 5 MG TABLET PO SCH (08:31)
[2017-09-14] MEDS: sitaGLIPtin 100 MG TABLET PO SCH (08:32)
[2017-09-14] MEDS: POTASSIUM CHLORIDE 20 MEQ TABLET PO SCH ×2 (08:32→21:36)
[2017-09-14] MEDS: CHLORHEXIDINE 0.12% ORAL RINSE 60 ML BOTTLE SWISH/SPIT SCH ×2 (08:33→22:18)
[2017-09-14] MEDS: PANTOPRAZOLE 40 MG TABLET PO SCH (08:33)
[2017-09-14] MEDS: INSULIN REGULAR 100 UNIT/ML SUBCUT SCH ×4 (08:36→21:45)
--- NOTE | 2017-09-14 09:48 | Cardiology Progress Note ---
Assessment and Plan (1) Chest pain Problem details: chest tightness Status: Resolved Assessment and plan: See impression/plan below. Current Visit: Yes (2) Hyperlipidemia Status: Chronic Assessment and plan: See impression/plan below. Current Visit: Yes (3) Suspected sleep apnea Status: Chronic Assessment and plan: See impression/plan below. Current Visit: Yes (4) GERD (gastroesophageal reflux disease) Status: Acute Current Visit: Yes (5) CAD (coronary artery disease) Status: Chronic Assessment and plan: See impression/plan below. Current Visit: Yes Qualifiers: Coronary Disease-Associated Artery/Lesion type: [place] artery [place] vs. transplanted heart: [place] heart Associated angina: without angina Qualified Code(s): I25.10 - Atherosclerotic heart disease of [place] coronary artery without angina pectoris (6) Diabetes Status: Chronic Assessment and plan: See impression/plan below. 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 Current Visit: Yes (8) Seizure disorder Status: Chronic Assessment and plan: See impression/plan below. Current Visit: No Cardiology - PN: Subj Interval history: Cardiology note 62-year-old male with unstable angina and severe proximal LAD and diagonal disease. Ejection fraction 55%. No chest pain. Telemetry shows steady sinus rhythm. O2 sat 97% on room air. Blood pressure 136/82 in the right arm by me. Regular rhythm no murmur or gallop. Clear lung [place]. Abdomen benign. Right groin soft and dry. No bruit or hematoma. Distal pulses 2+ Lab data today White count 8.0 hemoglobin 10.7 hematocrit 32.2 Sodium 142 potassium 4.6 chloride 106 CO2 30 BUN 12 creatinine 0.90 glucose 88 magnesium 2.4 Impression Severe proximal LAD and diagonal disease. Significant myocardium at risk. Ejection fraction 55%. Patent mid circumflex stent site from July 2016 Chronic hypertension Hyperlipidemia Type 2 diabetes Obesity Status post stroke 2009 with seizure post stroke, now on Dilantin Echo showed ejection fraction 55% with grade 1 diastolic dysfunction, mildly data left atrium, aortic valve sclerosis, mild TR PA pressure 40 Obstructive sleep apnea-recently diagnosed Plan CPAP mask nightly CABG tomorrow Aspirin Lovenox Norvasc Crestor Exam (Progress Note) - Constitutional Vitals: Period Temp Pulse Resp BP Sys/Lopez Pulse Ox Last 24 Hr 96.9 F-98.7 F 57-63 18-20 114-134/71-92 97-98 Result/EKG - Labs CBC & BMP: 09/14/17 03:25 09/14/17 03:25 Labs: Laboratory Results - last 24 hr 09/13/17 09/13/17 09/13/17 11:53 16:22 19:45 WBC RBC Hgb Hct MCV MCH MCHC RDW Plt Count MPV Neut % (Auto) Lymph % (Auto) [place] % (Auto) Eos % (Auto) Baso % (Auto) Neut # (Auto) Lymph # (Auto) [place] # (Auto) Eos # (Auto) Baso # (Auto) Immature Gran % Nucleated RBC % Immature Gran # Nucleated RBCs # Immature Plt Fraction Sodium Potassium Chloride Carbon Dioxide Anion Gap BUN Creatinine GFR Calculation BUN/Creatinine Ratio Glucose POC Glucose 122 H 104 117 H Calculated Osmolality Calcium Magnesium Blood Type Antibody Screen Crossmatch 09/14/17 09/14/17 09/14/17 03:25 03:25 03:25 WBC 8.0 RBC 3.54 L Hgb 10.7 L Hct 32.2 L MCV 91.0 MCH 30 MCHC 33.2 RDW 15.1 Plt Count 170 MPV 12.1 H Neut % (Auto) 57.4 Lymph % (Auto) 29.5 [place] % (Auto) 8.8 Eos % (Auto) 3.2 Baso % (Auto) 0.5 Neut # (Auto) 4.6 Lymph # (Auto) 2.4 [place] # (Auto) 0.7 Eos # (Auto) 0.3 Baso # (Auto) 0.0 Immature Gran % 0.6 Nucleated RBC % 0.0 Immature Gran # 0.05 Nucleated RBCs # 0.00 Immature Plt Fraction 0.0 Sodium 142 Potassium 4.6 Chloride 106 Carbon Dioxide 30 Anion Gap 10.6 BUN 12 Creatinine 0.90 GFR Calculation 135 BUN/Creatinine Ratio 13.00 Glucose 88 POC Glucose Calculated Osmolality 281.1 Calcium 8.4 L Magnesium 2.4 Blood Type O POSITIVE Antibody Screen Negative Crossmatch See Detail 09/14/17 09/14/17 07:37 Unknown WBC RBC Hgb Hct MCV MCH MCHC RDW Plt Count MPV Neut % (Auto) Lymph % (Auto) [place] % (Auto) Eos % (Auto) Baso % (Auto) Neut # (Auto) Lymph # (Auto) [place] # (Auto) Eos # (Auto) Baso # (Auto) Immature Gran % Nucleated RBC % Immature Gran # Nucleated RBCs # Immature Plt Fraction Sodium Potassium Chloride Carbon Dioxide Anion Gap BUN Creatinine GFR Calculation BUN/Creatinine Ratio Glucose POC Glucose 95 Calculated Osmolality Calcium Magnesium Blood Type O POSITIVE Antibody Screen Crossmatch Quality Measures - VTE Contraindication to Pharmacological VTE Prophylaxis: High Risk of Bleeding
[2017-09-14] MEDS: SODIUM CHLORIDE 0.9% 1,000 ML IV SCH (11:37)
[2017-09-14] MEDS: CHLORHEXIDINE 4% SOLN 118 ML BOTTLE TOP SCH ×2 (15:00→22:18)
--- NOTE | 2017-09-14 15:20 | Internal Med Progress Note ---
Assessment and Plan (1) Chest pain Problem details: chest tightness Status: Resolved Current Visit: Yes (2) History of stroke Status: Chronic Current Visit: Yes (3) CAD (coronary artery disease) Status: Chronic Current Visit: Yes Qualifiers: Coronary Disease-Associated Artery/Lesion type: [place] artery [place] vs. transplanted heart: [place] heart Associated angina: without angina Qualified Code(s): I25.10 - Atherosclerotic heart disease of [place] coronary artery without angina pectoris (4) Diabetes Status: Chronic Current Visit: Yes Qualifiers: Diabetes mellitus type: type 2 Diabetes mellitus complication status: without complication Diabetes mellitus half-way insulin use: without half-way use Qualified Code(s): E11.9 - Type 2 diabetes mellitus without complications (5) Suspected sleep apnea Status: Chronic Current Visit: Yes Internal Medicine - PN: Subj Interval history: Mr. Barraza is a 62 year old male with history of HTN, stroke with right sided weakness, dyslipidemia, DM, CAD/stenting last year per Dr. Antonio, OA, degenerative disc disease, recent cervical spinal surgery, who presented to ER with acute exertional chest tightness. He reports having no pain last year when coronary arterial stent placed. No history of asthma. Aug 11: He is status post cardiac cath and needs CABG. Extensive disease, including LAD. He will be scheduled next week. He denies chest pain. Aug 12: He is more comfortable today and will have heart surgery Friday morning. Overnight sleep study will be arranged for outpatient in a few weeks. Aug 13: He is resting comfortably. Aug 14: He is clinically stable and is feeling much better today Aug 15: He is ready for CABG in the morning. Exam (Progress Note) - Constitutional Vitals: Period Temp Pulse Resp BP Sys/Lopez Pulse Ox Last 24 Hr 97.0 F-98.7 F 57-63 18-20 122-143/72-92 97-99 Exam: General appearance: no acute distress - Respiratory Respiratory exam: Present: clear to auscultation bilaterally - Cardiovascular Cardiovascular exam: Present: regular rate and rhythm - GI/Abdominal GI/Abdominal exam: Present: soft. Absent: tenderness - Extremities Exam Extremities exam: Absent: edema - Neurological Exam Neurological exam: Present: alert, oriented X3 - Psychiatric Psychiatric exam: Present: normal mood - Skin Skin exam: Present: warm, dry Results - Labs CBC & BMP: 09/14/17 03:25 09/14/17 03:25 Quality Measures - VTE Contraindication to Pharmacological VTE Prophylaxis: High Risk of Bleeding
[2017-09-14] MEDS: ENOXAPARIN 40 MG/0.4 ML SYRINGE SUBCUT SCH (17:44)
[2017-09-14] MEDS: ROSUVASTATIN 10 MG TABLET PO SCH (21:35)
[2017-09-14] MEDS ORDERED: ZALEPLON 5 MG CAPSULE PO PRN (21:41)
[2017-09-15] MEDS: NITROGLYCERIN 2% OINT 1 INCH/GM PACK TOP SCH ×2 (01:10→09:00)
[2017-09-15 02:42] LABS: ABG Oxygen Saturation 96.7 % (95-100); ABG PCO2 43.2 MM HG (35-48); ABG PH 7.417 (7.35-7.45); Allen Test Positive; Pt O2 Delivery Device Room Air
[2017-09-15] MEDS ORDERED: PAPAVERINE 60 MG/2 ML VIAL ONE (04:33)
[2017-09-15] MEDS ORDERED: VANCOMYCIN 1,000 MG VIAL ONE (04:34)
[2017-09-15 04:57] LABS: Basophils % 0.4 % (0.0-0.8); Eosinophils # 0.3 10*3/uL (0.0-0.87); Eosinophils % 3.5 % (0.00-10.9); Hematocrit 31.8 VOL% (42.0-52.0); Hemoglobin 10.8 GM/DL (14.0-18.0); Immature Granulocytes % 0.6 %; Immature Granulocytes Absolute 0.05 #; Lymphocytes # 2.3 10*3/uL (1.4-4.0); Lymphocytes % 30.4 % (21.2-54.2); Mean Corpuscular Hemoglobin 31 PG (27-34); Mean Corpuscular Volume 90.9 FL (87-102); Mean Platelet Volume 11.4 FL (9.6-12.0); Monocytes # 0.7 10*3/uL (0.11-0.8); Monocytes % 9.1 % (1.7-12.7); Neutrophils # 4.3 10*3/uL (1.4-7.4); Platelet Count 165 T/CUMM (130-400); Red Cell Distribution Width 15.4 % (9.3-17.3); White Blood Count 7.7 T/CUMM (4-12)
[2017-09-15 05:05] LABS: Partial Thromboplastin Time 31.6 SECS (0-40)
[2017-09-15 05:26] LABS: Calcium 8.5 MG/DL (8.5-10.1); Magnesium 2.3 MG/DL (1.8-2.4)
[2017-09-15] MEDS ORDERED: LORazepam 1 MG TABLET PO ONE (05:30)
[2017-09-15] MEDS ORDERED: FAMOTIDINE 20 MG TABLET PO ONE (05:30)
[2017-09-15] MEDS: PHENYTOIN ER 100 MG CAPSULE PO SCH ×2 (05:43→09:01)
[2017-09-15] MEDS: PANTOPRAZOLE 40 MG TABLET PO SCH ×2 (05:43→09:01)
[2017-09-15] MEDS: OLMESARTAN 20 MG TABLET PO SCH ×2 (05:43→09:00)
[2017-09-15] MEDS: POTASSIUM CHLORIDE 20 MEQ TABLET PO SCH ×2 (05:43→09:01)
[2017-09-15] MEDS: predniSONE 5 MG TABLET PO SCH ×2 (05:44→09:01)
[2017-09-15] MEDS ORDERED: CEFUROXIME INJ 1,500 MG in SODIUM CHLORIDE 0.9% 50 ML IV ONE (06:00)
[2017-09-15] MEDS ORDERED: TRANEXAMIC ACID 1,000 MG/10 ML VIAL IV ONE (06:37)
[2017-09-15 07:51] LABS: ABG Base Excess 1.4 MMOL/L (-2.5-2.5); ABG HCO3 25.7 MMOL/L (20-26); ABG PCO2 34.5 MM HG (35-48); ABG PH 7.464 (7.35-7.45); ABG TCO2 22.3 MMOL/L (23-27); Glucose Heart Surgery 113 MG/DL (74-106); Hematocrit Heart Surgery 32.5 PERCENT (42-52); Hemoglobin Heart Surgery 10.5 G/DL (14.0-18.0); Ionized Calcium Arterial 1.13 MMOL/L (1.21-1.46); PCO2 Patient Temp Arterial 34.5 MMHG; PH Patient Temp Arterial 7.464; Patient Temperature 37 CELCIUS; Potassium Heart/CVR 3.9 MMOL/L (3.5-5.1); Sodium Heart/CVR 141 MMOL/L (135-145)
[2017-09-15 07:53] LABS: Apearance,Urine CLEAR (Clear); Bilirubin,Urine Negative (Negative); Blood, Urine Negative (Negative); Glucose,Urine (UA) Negative (Negative); Ketones,Urine Negative (Negative); Nitrite,Urine Negative (Negative); Protein,Urine Negative; RBC,Urine <1 /HPF (0-4); Urine Color Straw (Yellow); Urine Specific Gravity 1.008 (1.001-1.035); Urine Urobilinogen < 2.0 EU/DL (0.2-1.0); WBC,Urine <1 /HPF (0-6)
[2017-09-15] MEDS ORDERED: NITROPRUSSIDE 50 MG/2 ML VIAL ONE (07:53)
[2017-09-15] MEDS ORDERED: PHENYLEPHRINE DRIP 40 MG/250 ML PREMIX IV ONE (07:53)
[2017-09-15] MEDS ORDERED: CALCIUM CHLORIDE 1,000 MG/10 ML SYRINGE IV ONE (07:53)
[2017-09-15] MEDS ORDERED: ALBUMIN 5% 12.5 GM/250 ML VIAL IV ONE (07:54)
[2017-09-15] MEDS ORDERED: POTASSIUM CHLORIDE RIDER 100 ML IV ONE (07:54)
[2017-09-15] MEDS ORDERED: EPINEPHrine 1 MG/10 ML SYRINGE ONE (07:55)
[2017-09-15] MEDS ORDERED: SODIUM BICARBONATE 50 MEQ/50 ML SYRINGE IV ONE ×2 (07:55→10:09)
[2017-09-15 08:59] LABS: Hemoglobin Heart Surgery 7.6 G/DL (14.0-18.0); PCO2 Patient Temp Venous 36.1 MM HG; PH Patient Temp Venous 7.487; PO2 Patient Temp Venous 26.4 MM HG; Potassium Heart/CVR 5.5 MMOL/L (3.5-5.1); VBG Base Excess 3.1 MEQ/L (0-4); VBG HCO3 27.5 MEQ/L (24-28); VBG Oxygen Saturation 73.6 %; VBG PCO2 41.2 MMHG (41-51); VBG PH 7.442; VBG PO2 32.6 MMHG (17-40)
[2017-09-15] MEDS: ASPIRIN CHEW 81 MG TABLET PO SCH (09:00)
[2017-09-15] MEDS: INSULIN REGULAR 100 UNIT/ML SUBCUT SCH (09:00)
[2017-09-15] MEDS: SERTRALINE 100 MG TABLET PO SCH (09:01)
[2017-09-15] MEDS: CETIRIZINE 10 MG TABLET PO SCH (09:01)
[2017-09-15] MEDS: CHLORHEXIDINE 0.12% ORAL RINSE 60 ML BOTTLE SWISH/SPIT SCH ×2 (09:01→23:26)
[2017-09-15] MEDS: MELOXICAM 7.5 MG TABLET PO SCH (09:01)
[2017-09-15] MEDS: DOCUSATE SODIUM 100 MG CAPSULE PO SCH (09:01)
[2017-09-15] MEDS: CHLORHEXIDINE 4% SOLN 118 ML BOTTLE TOP SCH (09:01)
[2017-09-15] MEDS: FUROSEMIDE 20 MG TABLET PO SCH (09:01)
[2017-09-15] MEDS: sitaGLIPtin 100 MG TABLET PO SCH (09:01)
[2017-09-15 09:30] LABS: Hematocrit Heart Surgery 22.8 PERCENT (42-52); Hemoglobin Heart Surgery 7.3 G/DL (14.0-18.0); PCO2 Patient Temp Venous 40.5 MM HG; PH Patient Temp Venous 7.425; PO2 Patient Temp Venous 30.6 MM HG; Potassium Heart/CVR 5.2 MMOL/L (3.5-5.1); VBG Base Excess 2.1 MEQ/L (0-4); VBG HCO3 25.9 MEQ/L (24-28); VBG Oxygen Saturation 61.6 %; VBG PCO2 42.5 MMHG (41-51); VBG PH 7.41; VBG PO2 32.8 MMHG (17-40)
[2017-09-15] MEDS ORDERED: INSULIN REGULAR DRIP 100 ML IV ONE (09:44)
[2017-09-15 10:05] LABS: ABG Base Excess 3.5 MMOL/L (-2.5-2.5); ABG HCO3 27.4 MMOL/L (20-26); ABG Oxygen Saturation 99.1 % (95-100); ABG PCO2 38.7 MM HG (35-48); ABG PH 7.468 (7.35-7.45); ABG PO2 428.5 MM HG (80-95); ABG TCO2 28.6 MMOL/L (23-27); Glucose Heart Surgery 218 MG/DL (74-106); Hemoglobin Heart Surgery 8.6 G/DL (14.0-18.0); PCO2 Patient Temp Arterial 38.7 MMHG; PH Patient Temp Arterial 7.468; PO2 Patient Temp Arterial 428.5 MM HG; Patient Temperature 37 CELCIUS; Potassium Heart/CVR 4.5 MMOL/L (3.5-5.1); Sodium Heart/CVR 138 MMOL/L (135-145)
[2017-09-15] MEDS ORDERED: ALBUMIN 25% 25 GM/100 ML VIAL IV ONE (10:09)
[2017-09-15] MEDS ORDERED: PROTAMINE SULFATE 250 MG/25 ML VIAL IV ONE (10:09)
[2017-09-15] MEDS ORDERED: PROTAMINE SULFATE 50 MG/5 ML VIAL IV ONE ×2 (10:10→11:53)
[2017-09-15] MEDS ORDERED: FUROSEMIDE 20 MG/2 ML VIAL ONE (10:10)
[2017-09-15] MEDS ORDERED: methylPREDNISolone SOD SUC 1,000 MG/8 ML VIAL ONE (10:10)
[2017-09-15] MEDS ORDERED: MAGNESIUM SULFATE 1 GM/2 ML VIAL ONE (10:10)
[2017-09-15] MEDS ORDERED: DEXTROSE 5% KCL 20 MEQ 20 MEQ/1,000 ML BAG IV ONE (10:10)
[2017-09-15] MEDS ORDERED: HEPARIN 10,000 UNIT/10 ML VIAL ONE (10:10)
[2017-09-15] MEDS ORDERED: MANNITOL 100 GM/500 ML BAG IV ONE (10:12)
--- NOTE | 2017-09-15 11:09 | Operative Note ---
Date of procedure: 09/15/17 Pre-op diagnosis: Coronary artery disease Post-op diagnosis: same Procedure: Procedure: Coronary bypass grafting 2 the left internal mammary graft to the anterior descending coronary artery and a saphenous vein graft to the diagonal coronary artery. Findings: Patient is a 62-year-old man who presented with substernal chest discomfort and cardiac catheterization showed critical disease of the anterior descending and diagonal coronary arteries not amenable to PTCA. Patient was referred for bypass surgery in the time of surgery left ventricular function was noted to be essentially normal. Left internal mammary graft was placed to the anterior descending coronary artery and a saphenous vein graft was placed to the diagonal coronary artery and both distal vessels were of adequate size and free of disease at the site of anastomosis. Patient tolerated the procedure well and returned to recovery in satisfactory condition. Procedure: Patient was brought to the operating room placed on the operating table in the supine position. After satisfactory induction of general anesthesia the chest abdomen and legs were prepped and draped in sterile fashion. Greater saphenous vein was harvested from the right lower leg and prepared as an arterial graft. Incision in the leg was closed with 3-0 subcutaneous Monocryl and skin richy. Standard sternotomy incision was made and the sternum was divided and the heart suspended in a pericardial cradle. The left internal mammary artery was dissected free and prepared as an arterial graft. Patient was prepared for cardiopulmonary bypass with systemic heparinization and cannulation of the ascending aorta and right atrium. Cardiopulmonary bypass was begun and the aorta was crossclamped and the heart arrested with cardioplegia solution injected into the aortic root. Heart was protected during the period of crossclamping with topical saline slush. Distal anastomoses were constructed as noted above and in the aorta was unclamped reestablishing cardiac action. Proximal anastomosis was constructed between the influenza saphenous vein graft and the ascending aorta. The patient was then weaned from cardiopulmonary bypass without difficulty and the heparin effect reversed with protamine and decannulation carried out with the defects in the ascending aorta and right atrium closed with 3-0 Prolene. The operative field was inspected for hemostasis and this was considered adequate the incision was closed with stainless steel wire and the sternum and 0 Monocryl in the presternal fascia. Skin was closed with 3-0 subcuticular Monocryl. 2 chest tubes were left in the anterior mediastinum and brought out through separate stab incisions. Sterile dressings were applied patient was returned to recovery in satisfactory condition. Anesthesia: KULWANTA Surgeon / Physician: Taqueria Espino Estimated blood loss: other (Unable to determine because of cardiopulmonary bypass) Condition: stable Disposition: ICU Results - Labs CBC & BMP: 09/15/17 10:00 09/15/17 03:52 Discharge Plan - Discharge Medications No Action cloNIDine TAB [Catapres Tab] 0.1 mg PO BEDTIME Phenytoin ER Cap [Dilantin Cap] 200 mg PO BID Meloxicam [Mobic] 7.5 tablet PO DAILY Sertraline HCl 100 mg PO DAILY Furosemide Tab [Lasix Tab] 20 mg PO DAILY Potassium Chloride 20 meq PO DAILY Aspirin [Ecotrin] 81 mg PO DAILY Folic Acid Tab 1 mg PO DAILY Rosuvastatin [Crestor] 10 mg PO BEDTIME Pantoprazole Tab [Protonix Tab] 40 mg PO DAILY Clopidogrel [Plavix] 75 mg PO DAILY Cetirizine Tab [ZyrTEC Tab] 10 mg PO DAILY Fluticasone 50 Mcg Nasal Bowlegs [Flonase Nasal Bowlegs] 1 spray BOTH NARES DAILY PRN PRN Reason: Sinus Symptoms Saxagliptin HCl/Metformin HCl [Kombiglyze Xr 5-500 mg Tablet] 1 each PO DAILY Linaclotide [Linzess] 145 mcg PO DAILY PRN PRN Reason: Constipation predniSONE TAB [PredniSONE] 5 mg PO DAILY Olmesartan/Amlodipin/Hcthiazid [Tribenzor 40-5-25 mg Tablet] 1 each PO DAILY Ondansetron [Ondansetron Odt] 4 mg PO Q4H PRN #10 tab.rapdis PRN Reason: Nausea Tamsulosin [Flomax] 0.4 mg PO DAILY - Follow Up or Referral - Forms/Instructions
[2017-09-15] MEDS ORDERED: MIDAZOLAM 10 MG/2 ML VIAL ONE (11:14)
[2017-09-15] MEDS ORDERED: SUFentanil 250 MCG/5 ML AMP ONE (11:14)
[2017-09-15] MEDS ORDERED: SEVOFLURANE 1 UNIT/15 MINUTE INH ONE (11:19)
[2017-09-15] MEDS ORDERED: SODIUM CHLORIDE 0.9% 500 ML IV ONE (11:21)
[2017-09-15] MEDS ORDERED: PHENYLEPHRINE DRIP 40 MG/250 ML PREMIX IV PRN (11:21)
[2017-09-15] MEDS ORDERED: ONDANSETRON 4 MG/2 ML VIAL IV PRN (11:21)
[2017-09-15] MEDS ORDERED: ACETAMINOPHEN 650 MG SUPP RECTAL PRN (11:21)
[2017-09-15] MEDS ORDERED: VECURONIUM 10 MG VIAL IV ONE (11:21)
[2017-09-15] MEDS ORDERED: DEXTROSE 50% 25 GM/50 ML VIAL IV PRN ×2 (11:21)
[2017-09-15] MEDS ORDERED: NITROGLYCERIN DRIP 50 MG/250 ML BOTTLE IV ONE (11:21)
[2017-09-15] MEDS ORDERED: POTASSIUM CHLORIDE RIDER 20 MEQ in PREMIX 1 EACH IV PRN (11:21)
[2017-09-15] MEDS ORDERED: POTASSIUM CHLORIDE RIDER 10 MEQ in PREMIX 1 EACH IV PRN (11:21)
[2017-09-15] MEDS ORDERED: CALCIUM CHLORIDE 1,000 MG/10 ML SYRINGE IV PRN (11:21)
[2017-09-15] MEDS ORDERED: INSULIN REGULAR 100 UNIT/ML IV ONE (11:21)
[2017-09-15] MEDS ORDERED: CALCIUM CHLORIDE 1,000 MG/10 ML VIAL IV ONE (11:21)
[2017-09-15] MEDS ORDERED: MORPHINE 10 MG/1 ML VIAL IV PRN (11:21)
[2017-09-15] MEDS ORDERED: LACTATED RINGERS 1,000 ML IV ONE (11:21)
[2017-09-15] MEDS ORDERED: VECURONIUM 10 MG VIAL IV PRN ×2 (11:21)
[2017-09-15] MEDS ORDERED: INSULIN REGULAR 100 UNIT/ML IV PRN (11:21)
[2017-09-15] MEDS ORDERED: MIDAZOLAM 2 MG/2 ML VIAL IV PRN (11:21)
[2017-09-15] MEDS ORDERED: PHENYLEPHRINE 50 MG/5 ML VIAL ONE (11:21)
[2017-09-15] MEDS ORDERED: MAGNESIUM SULF RIDER 2 GM in PREMIX 1 EACH IV PRN (11:21)
[2017-09-15] MEDS ORDERED: MINERAL OIL/PETROLATUM OPH OINT 3.5 GM TUBE ONE (11:21)
[2017-09-15] MEDS ORDERED: ALBUMIN 5% 12.5 GM in PREMIX 1 EACH IV PRN (11:21)
[2017-09-15] MEDS ORDERED: MAGNESIUM SULF RIDER 4 GM in PREMIX 1 EACH IV PRN (11:21)
[2017-09-15] MEDS ORDERED: NITROPRUSSIDE 100 MG in DEXTROSE 5% 250 ML IV PRN (11:21)
[2017-09-15] MEDS ORDERED: SODIUM CHLORIDE 0.9% 100 ML IV ONE ×2 (11:21)
[2017-09-15] MEDS ORDERED: ETOMIDATE 20 MG/10 ML VIAL IV ONE (11:22)
[2017-09-15] MEDS ORDERED: HEPARIN/NACL 0.9% 2 UNITS/ML 500 ML IV ONE (11:22)
[2017-09-15] MEDS ORDERED: SODIUM CHLORIDE 0.45% 1,000 ML IV SCH ×2 (11:30)
[2017-09-15] MEDS ORDERED: INSULIN REGULAR DRIP 100 ML IV SCH (11:30)
[2017-09-15 11:31] LABS: ABG Base Excess 2.4 MMOL/L (-2.5-2.5); ABG HCO3 26.6 MMOL/L (20-26); ABG Oxygen Saturation 99.9 % (95-100); ABG PCO2 38.5 MM HG (35-48); ABG PH 7.446 (7.35-7.45); ABG TCO2 24.5 MMOL/L (23-27); Glucose Heart Surgery 198 MG/DL (74-106); Hematocrit Heart Surgery 26.8 PERCENT (42-52); Hemoglobin Heart Surgery 8.6 G/DL (14.0-18.0); Potassium Heart/CVR 4.2 MMOL/L (3.5-5.1)
[2017-09-15 11:32] LABS: Basophils % 0.1 % (0.0-0.8); Eosinophils # 0.1 10*3/uL (0.0-0.87); Eosinophils % 0.8 % (0.00-10.9); Hematocrit 24.9 VOL% (42.0-52.0); Hemoglobin 8.6 GM/DL (14.0-18.0); Immature Granulocytes % 0.8 %; Immature Granulocytes Absolute 0.11 #; Lymphocytes # 0.9 10*3/uL (1.4-4.0); Lymphocytes % 6.4 % (21.2-54.2); Mean Corpuscular HGB Conc 34.5 GM/DL (32-36); Mean Corpuscular Hemoglobin 31 PG (27-34); Mean Corpuscular Volume 89.9 FL (87-102); Monocytes # 0.6 10*3/uL (0.11-0.8); Monocytes % 4.4 % (1.7-12.7); Neutrophils # 12.7 10*3/uL (1.4-7.4); Neutrophils % 87.5 % (38.7-73.9); Platelet Count 198 T/CUMM (130-400); Red Blood Count 2.77 MC/CUMM (3.8-5.5); Red Cell Distribution Width 15.2 % (9.3-17.3); White Blood Count 14.6 T/CUMM (4-12)
--- NOTE | 2017-09-15 11:37 | XRay Report ---
Portable chest Date: 09/15/2017 Clinical history: Line placement Comparison: 09/10/2017 Technique: Portable AP sitting chest Findings: The heart is larger in size with interval median sternotomy. The supportive devices are in satisfactory position. Progressive minimal atelectasis/edema with no obvious pneumothorax on this supine film. No acute osseous findings. Impression: Interval median sternotomy with supportive devices in satisfactory position. No pneumothorax. Minimal atelectasis/edema. PROCEDURE INTERPRETED AT [facility] DEPARTMENT OF RADIOLOGY Final Report Signed by: Dr. Misty Elena
[2017-09-15 11:40] LABS: INR 1.1; PT Patient Result 11.4 SECS; Partial Thromboplastin Time 32.7 SECS (0-40)
[2017-09-15] MEDS: KETOROLAC 30 MG/1 ML VIAL IV SCH ×3 (11:59→23:25)
[2017-09-15 12:06] LABS: Albumin 3.3 G/DL (3.4-5.0); Bilirubin,Total 0.7 MG/DL (0.2-1.0); Calcium 8.7 MG/DL (8.5-10.1); Magnesium 2.4 MG/DL (1.8-2.4); Osmolality,Calculated 286.1 MOS/KG (273-304); Potassium 4.3 MMOL/L (3.5-5.1)
[2017-09-15] MEDS: MIDAZOLAM 10 MG/2 ML VIAL IV PRN ×2 (12:06→13:50)
[2017-09-15 12:54] LABS: Troponin I Only 2.13 NG/ML (0.00-0.045)
[2017-09-15] MEDS: LACTATED RINGERS 250 ML IV PRN ×6 (13:00→15:20)
[2017-09-15] MEDS: MORPHINE 2 MG/1 ML SYRINGE IV PRN ×2 (13:09→17:48)
[2017-09-15 14:33] LABS: ABG Base Excess 1.1 MMOL/L (-2.5-2.5); ABG HCO3 25.4 MMOL/L (20-26); ABG Oxygen Saturation 99.6 % (95-100); ABG PCO2 34.9 MM HG (35-48); ABG PH 7.457 (7.35-7.45); ABG TCO2 22.3 MMOL/L (23-27); Glucose Heart Surgery 111 MG/DL (74-106); Hematocrit Heart Surgery 30.7 PERCENT (42-52); Hemoglobin Heart Surgery 9.9 G/DL (14.0-18.0); Potassium Heart/CVR 4.1 MMOL/L (3.5-5.1)
[2017-09-15 16:45] LABS: ABG HCO3 26.2 MMOL/L (20-26); ABG Oxygen Saturation 99.4 % (95-100); ABG PCO2 38.4 MM HG (35-48); ABG TCO2 23.5 MMOL/L (23-27); Glucose Heart Surgery 85 MG/DL (74-106); Hematocrit Heart Surgery 32.6 PERCENT (42-52); Hemoglobin Heart Surgery 10.6 G/DL (14.0-18.0); Potassium Heart/CVR 4.1 MMOL/L (3.5-5.1)
[2017-09-15 18:15] LABS: ABG Base Excess -0.4 MMOL/L (-2.5-2.5); ABG HCO3 24.1 MMOL/L (20-26); ABG Oxygen Saturation 98.8 % (95-100); ABG PCO2 44.7 MM HG (35-48); ABG PH 7.359 (7.35-7.45); ABG TCO2 22.8 MMOL/L (23-27); Glucose Heart Surgery 108 MG/DL (74-106); Hematocrit Heart Surgery 33.3 PERCENT (42-52); Hemoglobin Heart Surgery 10.8 G/DL (14.0-18.0); Potassium Heart/CVR 4.1 MMOL/L (3.5-5.1)
[2017-09-15] MEDS ORDERED: FUROSEMIDE 40 MG/4 ML VIAL IV ONE ×2 (18:34→23:31)
[2017-09-15] MEDS: CEFUROXIME INJ 1,500 MG in SODIUM CHLORIDE 0.9% 50 ML IV SCH (18:51)
[2017-09-15 19:19] LABS: ABG Base Excess 0.9 MMOL/L (-2.5-2.5); ABG HCO3 25.2 MMOL/L (20-26); ABG Oxygen Saturation 95.8 % (95-100); ABG PCO2 42.3 MM HG (35-48); ABG PH 7.396 (7.35-7.45); ABG PO2 78.4 MM HG (80-95); ABG TCO2 23.4 MMOL/L (23-27); Glucose Heart Surgery 114 MG/DL (74-106); Hematocrit Heart Surgery 32.7 PERCENT (42-52); Hemoglobin Heart Surgery 10.6 G/DL (14.0-18.0); Potassium Heart/CVR 4.2 MMOL/L (3.5-5.1)
[2017-09-15 19:38] LABS: CKMB % 3.3 %
[2017-09-15 19:40] LABS: Troponin I Only 7.46 NG/ML (0.00-0.045)
--- NOTE | 2017-09-15 20:07 | Cardiology Progress Note ---
Assessment and Plan (1) CAD (coronary artery disease) Status: Chronic Assessment and plan: 62-year-old black male, followed by Dr. Wagner. Admitted with unstable angina, severe two-vessel disease, not amenable to PCI. History of CVA. CABG /. -Hemodynamically stable. Will resume CAD regimen in a.m. Current Visit: Yes Qualifiers: Coronary Disease-Associated Artery/Lesion type: [place] artery [place] vs. transplanted heart: [place] heart Associated angina: without angina Qualified Code(s): I25.10 - Atherosclerotic heart disease of [place] coronary artery without angina pectoris (2) History of stroke Status: Chronic Current Visit: Yes Cardiology - PN: Subj Interval history: Uneventful CABG 2. He was extubated an hour ago. Feeling fine, mild chest discomfort, hemodynamically stable. Off pressors. Exam (Progress Note) - Constitutional Vitals: Period Temp Pulse Resp BP Sys/Lopez Pulse Ox Last 24 Hr 97.3 F-99.0 F 67-109 6-20 86-204/54-92 96-100 General appearance: no acute distress, over weight - Head Head exam: Present: normal inspection. Absent: contusion - Eye Eye exam: Absent: periorbital swelling, scleral icterus Pupils: Absent: dilated - ENT ENT exam: Present: normal external ear exam - Neck Neck exam: Present: normal inspection - Respiratory Respiratory exam: Present: decreased breath sounds. Absent: wheezes - Cardiovascular Cardiovascular exam: Present: regular rate and rhythm. Absent: JVD, systolic murmur, tachycardia - GI/Abdominal GI/Abdominal exam: Present: hypoactive bowel sounds. Absent: distended - Extremities Exam Extremities exam: Present: normal inspection, normal capillary refill, edema (1+ ) - Neurological Exam Neurological exam: Present: alert, oriented X3 - Psychiatric Psychiatric exam: Present: normal affect, normal mood - Skin Skin exam: Present: normal color, warm, other (Chest tube in place. Incisions dry). Absent: cyanosis Result/EKG - Labs CBC & BMP: 09/15/17 11:29 09/15/17 11:25 Lab Results: I have reviewed the past 24 hour labs Labs: Laboratory Results - last 24 hr 09/14/17 09/14/17 09/15/17 03:25 19:57 02:26 WBC RBC Hgb Hct MCV MCH MCHC RDW Plt Count MPV Neut % (Auto) Lymph % (Auto) [place] % (Auto) Eos % (Auto) Baso % (Auto) Neut # (Auto) Lymph # (Auto) [place] # (Auto) Eos # (Auto) Baso # (Auto) Immature Gran % Nucleated RBC % Immature Gran # Nucleated RBCs # Immature Plt Fraction INR PT Patient/Control Mix Circ Anticoag PTT Patient Temperature ABG pH 7.417 ABG pH at Pt Temp ABG pCO2 43.2 ABG pCO2 at Pt Temp ABG pO2 82.0 ABG pO2 at Pt Temp ABG HCO3 27.0 H ABG Total CO2 25.0 ABG O2 Saturation 96.7 ABG Base Excess 3.0 H ABG Sodium VBG pH VBG pCO2 VBG pO2 VBG HCO3 VBG Total CO2 VBG O2 Saturation VBG Base Excess Hemoglobin Hematocrit Ionized Calcium FiO2 21.00 Sodium Potassium Chloride Carbon Dioxide Anion Gap BUN Creatinine GFR Calculation BUN/Creatinine Ratio Glucose POC Glucose 90 Calculated Osmolality Calcium Venous Ioniz Calcium Magnesium Total Bilirubin AST ALT Alkaline Phosphatase Total Creatine Kinase CK-MB (CK-2) CK and CKMB Interp Troponin I Total Protein Albumin Globulin Albumin/Globulin Ratio Urine Color Urine Appearance Urine pH Ur Specific [place] Urine Protein Urine Glucose (UA) Urine Ketones Urine Blood Urine Nitrate Urine Bilirubin Urine Urobilinogen Urine Leukocytes Urine RBC Urine WBC Ur Culture Indicated? Blood Type O POSITIVE Antibody Screen Negative Crossmatch See Detail 09/15/17 09/15/17 09/15/17 03:52 03:52 03:53 WBC 7.7 RBC 3.50 L Hgb 10.8 L Hct 31.8 L MCV 90.9 MCH 31 MCHC 34.0 RDW 15.4 Plt Count 165 MPV 11.4 Neut % (Auto) 56.0 Lymph % (Auto) 30.4 [place] % (Auto) 9.1 Eos % (Auto) 3.5 Baso % (Auto) 0.4 Neut # (Auto) 4.3 Lymph # (Auto) 2.3 [place] # (Auto) 0.7 Eos # (Auto) 0.3 Baso # (Auto) 0.0 Immature Gran % 0.6 Nucleated RBC % 0.0 Immature Gran # 0.05 Nucleated RBCs # 0.00 Immature Plt Fraction 0.0 INR 1.0 PT Patient/Control Mix 11.0 Circ Anticoag PTT 31.6 Patient Temperature ABG pH ABG pH at Pt Temp ABG pCO2 ABG pCO2 at Pt Temp ABG pO2 ABG pO2 at Pt Temp ABG HCO3 ABG Total CO2 ABG O2 Saturation ABG Base Excess ABG Sodium VBG pH VBG pCO2 VBG pO2 VBG HCO3 VBG Total CO2 VBG O2 Saturation VBG Base Excess Hemoglobin Hematocrit Ionized Calcium FiO2 Sodium 143 Potassium 5.0 Chloride 108 H Carbon Dioxide 29 Anion Gap 11.0 BUN 12 Creatinine 1.20 GFR Calculation 97 BUN/Creatinine Ratio 10.00 Glucose 86 POC Glucose Calculated Osmolality 283.0 Calcium 8.5 Venous Ioniz Calcium Magnesium 2.3 Total Bilirubin AST ALT Alkaline Phosphatase Total Creatine Kinase CK-MB (CK-2) CK and CKMB Interp Troponin I Total Protein Albumin Globulin Albumin/Globulin Ratio Urine Color Urine Appearance Urine pH Ur Specific [place] Urine Protein Urine Glucose (UA) Urine Ketones Urine Blood Urine Nitrate Urine Bilirubin Urine Urobilinogen Urine Leukocytes Urine RBC Urine WBC Ur Culture Indicated? Blood Type Antibody Screen Crossmatch 09/15/17 09/15/17 09/15/17 04:30 07:40 07:40 WBC RBC Hgb Hct MCV MCH MCHC RDW Plt Count 165 MPV Neut % (Auto) Lymph % (Auto) [place] % (Auto) Eos % (Auto) Baso % (Auto) Neut # (Auto) Lymph # (Auto) [place] # (Auto) Eos # (Auto) Baso # (Auto) Immature Gran % Nucleated RBC % Immature Gran # Nucleated RBCs # Immature Plt Fraction INR PT Patient/Control Mix Circ Anticoag PTT Patient Temperature 37 ABG pH 7.464 H ABG pH at Pt Temp 7.464 ABG pCO2 34.5 L ABG pCO2 at Pt Temp 34.5 ABG pO2 512.0 H ABG pO2 at Pt Temp 512.0 ABG HCO3 25.7 ABG Total CO2 22.3 L ABG O2 Saturation 100.0 ABG Base Excess 1.4 ABG Sodium 141 VBG pH VBG pCO2 VBG pO2 VBG HCO3 VBG Total CO2 VBG O2 Saturation VBG Base Excess Hemoglobin 10.5 L Hematocrit 32.5 L Ionized Calcium 1.13 L FiO2 Sodium Potassium 3.9 Chloride Carbon Dioxide Anion Gap BUN Creatinine GFR Calculation BUN/Creatinine Ratio Glucose 113 H POC Glucose 106 Calculated Osmolality Calcium Venous Ioniz Calcium Magnesium Total Bilirubin AST ALT Alkaline Phosphatase Total Creatine Kinase CK-MB (CK-2) CK and CKMB Interp Troponin I Total Protein Albumin Globulin Albumin/Globulin Ratio Urine Color Urine Appearance Urine pH Ur Specific [place] Urine Protein Urine Glucose (UA) Urine Ketones Urine Blood Urine Nitrate Urine Bilirubin Urine Urobilinogen Urine Leukocytes Urine RBC Urine WBC Ur Culture Indicated? Blood Type Antibody Screen Crossmatch 09/15/17 09/15/17 09/15/17 08:55 09:25 10:00 WBC RBC Hgb Hct MCV MCH MCHC RDW Plt Count 115 L D MPV Neut % (Auto) Lymph % (Auto) [place] % (Auto) Eos % (Auto) Baso % (Auto) Neut # (Auto) Lymph # (Auto) [place] # (Auto) Eos # (Auto) Baso # (Auto) Immature Gran % Nucleated RBC % Immature Gran # Nucleated RBCs # Immature Plt Fraction INR PT Patient/Control Mix Circ Anticoag PTT Patient Temperature 34 36 ABG pH ABG pH at Pt Temp 7.487 7.425 ABG pCO2 ABG pCO2 at Pt Temp 36.1 40.5 ABG pO2 ABG pO2 at Pt Temp 26.4 30.6 ABG HCO3 ABG Total CO2 ABG O2 Saturation ABG Base Excess ABG Sodium 130 L 135 VBG pH 7.442 7.410 VBG pCO2 41.2 42.5 VBG pO2 32.6 32.8 VBG HCO3 27.5 25.9 VBG Total CO2 28.7 25.5 VBG O2 Saturation 73.6 61.6 VBG Base Excess 3.1 2.1 Hemoglobin 7.6 L 7.3 L D Hematocrit 22.0 L 22.8 L Ionized Calcium FiO2 80.00 80.00 Sodium Potassium 5.5 H 5.2 H Chloride Carbon Dioxide Anion Gap BUN Creatinine GFR Calculation BUN/Creatinine Ratio Glucose 318 H 230 H POC Glucose Calculated Osmolality Calcium Venous Ioniz Calcium 0.92 1.05 L Magnesium Total Bilirubin AST ALT Alkaline Phosphatase Total Creatine Kinase CK-MB (CK-2) CK and CKMB Interp Troponin I Total Protein Albumin Globulin Albumin/Globulin Ratio Urine Color Urine Appearance Urine pH Ur Specific [place] Urine Protein Urine Glucose (UA) Urine Ketones Urine Blood Urine Nitrate Urine Bilirubin Urine Urobilinogen Urine Leukocytes Urine RBC Urine WBC Ur Culture Indicated? Blood Type Antibody Screen Crossmatch 09/15/17 09/15/17 09/15/17 10:00 11:25 11:25 WBC RBC Hgb Hct MCV MCH MCHC RDW Plt Count MPV Neut % (Auto) Lymph % (Auto) [place] % (Auto) Eos % (Auto) Baso % (Auto) Neut # (Auto) Lymph # (Auto) [place] # (Auto) Eos # (Auto) Baso # (Auto) Immature Gran % Nucleated RBC % Immature Gran # Nucleated RBCs # Immature Plt Fraction INR PT Patient/Control Mix Circ Anticoag PTT Patient Temperature 37 ABG pH 7.468 H 7.446 ABG pH at Pt Temp 7.468 ABG pCO2 38.7 38.5 ABG pCO2 at Pt Temp 38.7 ABG pO2 428.5 H 176.0 H ABG pO2 at Pt Temp 428.5 ABG HCO3 27.4 H 26.6 H ABG Total CO2 28.6 H 24.5 ABG O2 Saturation 99.1 99.9 ABG Base Excess 3.5 H 2.4 ABG Sodium 138 VBG pH VBG pCO2 VBG pO2 VBG HCO3 VBG Total CO2 VBG O2 Saturation VBG Base Excess Hemoglobin 8.6 L 8.6 L Hematocrit 25.0 L 26.8 L Ionized Calcium 1.10 L FiO2 Sodium 142 Potassium 4.5 4.3 4.2 Chloride 107 Carbon Dioxide 26 Anion Gap 13.3 BUN 11 Creatinine 1.30 GFR Calculation 88 BUN/Creatinine Ratio 8.00 Glucose 218 H 192 H 198 H POC Glucose Calculated Osmolality 286.1 Calcium 8.7 Venous Ioniz Calcium Magnesium 2.4 Total Bilirubin 0.70 AST 24 ALT 30 Alkaline Phosphatase 128 H Total Creatine Kinase CK-MB (CK-2) CK and CKMB Interp Troponin I Total Protein 6.0 L Albumin 3.3 L Globulin 2.7 Albumin/Globulin Ratio 1.2 Urine Color Urine Appearance Urine pH Ur Specific [place] Urine Protein Urine Glucose (UA) Urine Ketones Urine Blood Urine Nitrate Urine Bilirubin Urine Urobilinogen Urine Leukocytes Urine RBC Urine WBC Ur Culture Indicated? Blood Type Antibody Screen Crossmatch 09/15/17 09/15/17 09/15/17 11:25 11:29 11:29 WBC 14.6 H D RBC 2.77 L D Hgb 8.6 L D Hct 24.9 L MCV 89.9 MCH 31 MCHC 34.5 RDW 15.2 Plt Count 198 D MPV 11.0 Neut % (Auto) 87.5 H Lymph % (Auto) 6.4 L [place] % (Auto) 4.4 Eos % (Auto) 0.8 Baso % (Auto) 0.1 Neut # (Auto) 12.7 H Lymph # (Auto) 0.9 L [place] # (Auto) 0.6 Eos # (Auto) 0.1 Baso # (Auto) 0.0 Immature Gran % 0.8 Nucleated RBC % 0.0 Immature Gran # 0.11 Nucleated RBCs # 0.00 Immature Plt Fraction 0.0 INR 1.1 PT Patient/Control Mix 11.4 Circ Anticoag PTT 32.7 Patient Temperature ABG pH ABG pH at Pt Temp ABG pCO2 ABG pCO2 at Pt Temp ABG pO2 ABG pO2 at Pt Temp ABG HCO3 ABG Total CO2 ABG O2 Saturation ABG Base Excess ABG Sodium VBG pH VBG pCO2 VBG pO2 VBG HCO3 VBG Total CO2 VBG O2 Saturation VBG Base Excess Hemoglobin Hematocrit Ionized Calcium FiO2 Sodium Potassium Chloride Carbon Dioxide Anion Gap BUN Creatinine GFR Calculation BUN/Creatinine Ratio Glucose POC Glucose Calculated Osmolality Calcium Venous Ioniz Calcium Magnesium Total Bilirubin AST ALT Alkaline Phosphatase Total Creatine Kinase 211 D CK-MB (CK-2) 10.5 H CK and CKMB Interp 5.0 Troponin I 2.130 H Total Protein Albumin Globulin Albumin/Globulin Ratio Urine Color Urine Appearance Urine pH Ur Specific [place] Urine Protein Urine Glucose (UA) Urine Ketones Urine Blood Urine Nitrate Urine Bilirubin Urine Urobilinogen Urine Leukocytes Urine RBC Urine WBC Ur Culture Indicated? Blood Type Antibody Screen Crossmatch 09/15/17 09/15/17 09/15/17 13:16 14:08 14:26 WBC RBC Hgb Hct MCV MCH MCHC RDW Plt Count MPV Neut % (Auto) Lymph % (Auto) [place] % (Auto) Eos % (Auto) Baso % (Auto) Neut # (Auto) Lymph # (Auto) [place] # (Auto) Eos # (Auto) Baso # (Auto) Immature Gran % Nucleated RBC % Immature Gran # Nucleated RBCs # Immature Plt Fraction INR PT Patient/Control Mix Circ Anticoag PTT Patient Temperature ABG pH 7.457 H ABG pH at Pt Temp ABG pCO2 34.9 L ABG pCO2 at Pt Temp ABG pO2 135.0 H ABG pO2 at Pt Temp ABG HCO3 25.4 ABG Total CO2 22.3 L ABG O2 Saturation 99.6 ABG Base Excess 1.1 ABG Sodium VBG pH VBG pCO2 VBG pO2 VBG HCO3 VBG Total CO2 VBG O2 Saturation VBG Base Excess Hemoglobin 9.9 L Hematocrit 30.7 L Ionized Calcium FiO2 Sodium Potassium 4.1 Chloride Carbon Dioxide Anion Gap BUN Creatinine GFR Calculation BUN/Creatinine Ratio Glucose 111 H POC Glucose 150 H 128 H Calculated Osmolality Calcium Venous Ioniz Calcium Magnesium Total Bilirubin AST ALT Alkaline Phosphatase Total Creatine Kinase CK-MB (CK-2) CK and CKMB Interp Troponin I Total Protein Albumin Globulin Albumin/Globulin Ratio Urine Color Urine Appearance Urine pH Ur Specific [place] Urine Protein Urine Glucose (UA) Urine Ketones Urine Blood Urine Nitrate Urine Bilirubin Urine Urobilinogen Urine Leukocytes Urine RBC Urine WBC Ur Culture Indicated? Blood Type Antibody Screen Crossmatch 09/15/17 09/15/17 09/15/17 15:00 15:59 16:07 WBC RBC Hgb Hct MCV MCH MCHC RDW Plt Count MPV Neut % (Auto) Lymph % (Auto) [place] % (Auto) Eos % (Auto) Baso % (Auto) Neut # (Auto) Lymph # (Auto) [place] # (Auto) Eos # (Auto) Baso # (Auto) Immature Gran % Nucleated RBC % Immature Gran # Nucleated RBCs # Immature Plt Fraction INR PT Patient/Control Mix Circ Anticoag PTT Patient Temperature ABG pH 7.440 ABG pH at Pt Temp ABG pCO2 38.4 ABG pCO2 at Pt Temp ABG pO2 130.0 H ABG pO2 at Pt Temp ABG HCO3 26.2 H ABG Total CO2 23.5 ABG O2 Saturation 99.4 ABG Base Excess 2.0 ABG Sodium VBG pH VBG pCO2 VBG pO2 VBG HCO3 VBG Total CO2 VBG O2 Saturation VBG Base Excess Hemoglobin 10.6 L Hematocrit 32.6 L Ionized Calcium FiO2 Sodium Potassium 4.1 Chloride Carbon Dioxide Anion Gap BUN Creatinine GFR Calculation BUN/Creatinine Ratio Glucose 85 POC Glucose 106 95 Calculated Osmolality Calcium Venous Ioniz Calcium Magnesium Total Bilirubin AST ALT Alkaline Phosphatase Total Creatine Kinase CK-MB (CK-2) CK and CKMB Interp Troponin I Total Protein Albumin Globulin Albumin/Globulin Ratio Urine Color Urine Appearance Urine pH Ur Specific [place] Urine Protein Urine Glucose (UA) Urine Ketones Urine Blood Urine Nitrate Urine Bilirubin Urine Urobilinogen Urine Leukocytes Urine RBC Urine WBC Ur Culture Indicated? Blood Type Antibody Screen Crossmatch 09/15/17 09/15/17 09/15/17 17:01 18:05 19:17 WBC RBC Hgb Hct MCV MCH MCHC RDW Plt Count MPV Neut % (Auto) Lymph % (Auto) [place] % (Auto) Eos % (Auto) Baso % (Auto) Neut # (Auto) Lymph # (Auto) [place] # (Auto) Eos # (Auto) Baso # (Auto) Immature Gran % Nucleated RBC % Immature Gran # Nucleated RBCs # Immature Plt Fraction INR PT Patient/Control Mix Circ Anticoag PTT Patient Temperature ABG pH 7.359 ABG pH at Pt Temp ABG pCO2 44.7 ABG pCO2 at Pt Temp ABG pO2 123.0 H ABG pO2 at Pt Temp ABG HCO3 24.1 ABG Total CO2 22.8 L ABG O2 Saturation 98.8 ABG Base Excess -0.4 ABG Sodium VBG pH VBG pCO2 VBG pO2 VBG HCO3 VBG Total CO2 VBG O2 Saturation VBG Base Excess Hemoglobin 10.8 L Hematocrit 33.3 L Ionized Calcium FiO2 Sodium Potassium 4.1 Chloride Carbon Dioxide Anion Gap BUN Creatinine GFR Calculation BUN/Creatinine Ratio Glucose 108 H POC Glucose 90 Calculated Osmolality Calcium Venous Ioniz Calcium Magnesium Total Bilirubin AST ALT Alkaline Phosphatase Total Creatine Kinase 363 H D CK-MB (CK-2) 11.8 H CK and CKMB Interp 3.3 Troponin I 7.460 H D Total Protein Albumin Globulin Albumin/Globulin Ratio Urine Color Urine Appearance Urine pH Ur Specific [place] Urine Protein Urine Glucose (UA) Urine Ketones Urine Blood Urine Nitrate Urine Bilirubin Urine Urobilinogen Urine Leukocytes Urine RBC Urine WBC Ur Culture Indicated? Blood Type Antibody Screen Crossmatch 09/15/17 09/15/17 19:21 Unknown WBC RBC Hgb Hct MCV MCH MCHC RDW Plt Count MPV Neut % (Auto) Lymph % (Auto) [place] % (Auto) Eos % (Auto) Baso % (Auto) Neut # (Auto) Lymph # (Auto) [place] # (Auto) Eos # (Auto) Baso # (Auto) Immature Gran % Nucleated RBC % Immature Gran # Nucleated RBCs # Immature Plt Fraction INR PT Patient/Control Mix Circ Anticoag PTT Patient Temperature ABG pH 7.396 ABG pH at Pt Temp ABG pCO2 42.3 ABG pCO2 at Pt Temp ABG pO2 78.4 L ABG pO2 at Pt Temp ABG HCO3 25.2 ABG Total CO2 23.4 ABG O2 Saturation 95.8 ABG Base Excess 0.9 ABG Sodium VBG pH VBG pCO2 VBG pO2 VBG HCO3 VBG Total CO2 VBG O2 Saturation VBG Base Excess Hemoglobin 10.6 L Hematocrit 32.7 L Ionized Calcium FiO2 Sodium Potassium 4.2 Chloride Carbon Dioxide Anion Gap BUN Creatinine GFR Calculation BUN/Creatinine Ratio Glucose 114 H POC Glucose Calculated Osmolality Calcium Venous Ioniz Calcium Magnesium Total Bilirubin AST ALT Alkaline Phosphatase Total Creatine Kinase CK-MB (CK-2) CK and CKMB Interp Troponin I Total Protein Albumin Globulin Albumin/Globulin Ratio Urine Color Straw Urine Appearance Clear Urine pH 8.0 Ur Specific [place] 1.008 Urine Protein Negative Urine Glucose (UA) Negative Urine Ketones Negative Urine Blood Negative Urine Nitrate Negative Urine Bilirubin Negative Urine Urobilinogen < 2.0 H Urine Leukocytes Negative Urine RBC <1 Urine WBC <1 Ur Culture Indicated? Not indicated Blood Type Antibody Screen Crossmatch - EKG EKG results: interpreted by me Quality Measures - VTE Contraindication to Pharmacological VTE Prophylaxis: High Risk of Bleeding
--- NOTE | 2017-09-15 23:02 | Internal Med Progress Note ---
Assessment and Plan (1) Chest pain Problem details: chest tightness Status: Resolved Current Visit: Yes (2) History of stroke Status: Chronic Current Visit: Yes (3) CAD (coronary artery disease) Status: Chronic Current Visit: Yes Qualifiers: Coronary Disease-Associated Artery/Lesion type: [place] artery [place] vs. transplanted heart: [place] heart Associated angina: without angina Qualified Code(s): I25.10 - Atherosclerotic heart disease of [place] coronary artery without angina pectoris (4) Diabetes Status: Chronic Current Visit: Yes Qualifiers: Diabetes mellitus type: type 2 Diabetes mellitus complication status: without complication Diabetes mellitus residential insulin use: without residential use Qualified Code(s): E11.9 - Type 2 diabetes mellitus without complications (5) Suspected sleep apnea Status: Chronic Current Visit: Yes (6) Status post coronary artery bypass graft Status: Acute Current Visit: Yes Internal Medicine - PN: Subj Interval history: Mr. Barraza is a 62 year old male with history of HTN, stroke with right sided weakness, dyslipidemia, DM, CAD/stenting last year per Dr. Antonio, OA, degenerative disc disease, recent cervical spinal surgery, who presented to ER with acute exertional chest tightness. He reports having no pain last year when coronary arterial stent placed. No history of asthma. Sep 10: He is status post cardiac cath and needs CABG. Extensive disease, including LAD. He will be scheduled next week. He denies chest pain. September 15: Patient seen in ICU post CABG and doing well. He was just awake but still on ventilator. In process of weaning off ventilator. Exam (Progress Note) - Constitutional Vitals: Period Temp Pulse Resp BP Sys/Lopez Pulse Ox Last 24 Hr 97.3 F-99.0 F 67-109 6-20 86-204/54-92 98-100 Exam: General appearance: no acute distress - Respiratory Respiratory exam: Present: clear to auscultation bilaterally - Cardiovascular Cardiovascular exam: Present: regular rate and rhythm - GI/Abdominal GI/Abdominal exam: Present: soft. Absent: tenderness - Extremities Exam Extremities exam: Absent: edema - Neurological Exam Neurological exam: Present: awake - Psychiatric Psychiatric exam: Present: flat affect post surgery - Skin Skin exam: Present: warm, dry Results - Labs CBC & BMP: 09/16/17 04:00 09/16/17 05:00 Quality Measures - VTE Contraindication to Pharmacological VTE Prophylaxis: High Risk of Bleeding
[2017-09-16] MEDS: INSULIN REGULAR 100 UNIT/ML SUBCUT SCH ×2 (00:10→05:57)
[2017-09-16 03:49] LABS: ABG Base Excess 1.1 MMOL/L (-2.5-2.5); ABG HCO3 25.4 MMOL/L (20-26); ABG Oxygen Saturation 98.1 % (95-100); ABG PCO2 43.4 MM HG (35-48); ABG PO2 97.4 MM HG (80-95); ABG TCO2 23.9 MMOL/L (23-27); Glucose Heart Surgery 120 MG/DL (74-106); Hematocrit Heart Surgery 31.4 PERCENT (42-52); Hemoglobin Heart Surgery 10.1 G/DL (14.0-18.0); Potassium Heart/CVR 4.4 MMOL/L (3.5-5.1)
[2017-09-16 04:18] LABS: Basophils % 0.1 % (0.0-0.8); Hematocrit 28.9 VOL% (42.0-52.0); Hemoglobin 9.9 GM/DL (14.0-18.0); Immature Granulocytes % 0.6 %; Lymphocytes # 1.3 10*3/uL (1.4-4.0); Lymphocytes % 8.4 % (21.2-54.2); Mean Corpuscular HGB Conc 34.3 GM/DL (32-36); Mean Corpuscular Hemoglobin 30 PG (27-34); Mean Corpuscular Volume 88.4 FL (87-102); Mean Platelet Volume 11.4 FL (9.6-12.0); Monocytes # 1.3 10*3/uL (0.11-0.8); Monocytes % 8.6 % (1.7-12.7); Neutrophils # 12.8 10*3/uL (1.4-7.4); Neutrophils % 82.3 % (38.7-73.9); Platelet Count 167 T/CUMM (130-400); Red Blood Count 3.27 MC/CUMM (3.8-5.5); Red Cell Distribution Width 15.9 % (9.3-17.3); White Blood Count 15.6 T/CUMM (4-12)
[2017-09-16 04:20] LABS: CKMB % 1.9 %
[2017-09-16 04:23] LABS: Troponin I Only 5.44 NG/ML (0.00-0.045)
[2017-09-16] MEDS: KETOROLAC 30 MG/1 ML VIAL IV SCH ×4 (05:43→21:15)
[2017-09-16] MEDS: CEFUROXIME INJ 1,500 MG in SODIUM CHLORIDE 0.9% 50 ML IV SCH (06:18)
--- NOTE | 2017-09-16 06:34 | Cardiothoracic Progress Note ---
Cardiothoracic Subjective Interval history: Patient is awake alert and extubated. Vital signs have been stable through the night and has been breathing comfortably since extubation yesterday around 7 PM. He has maintained normal sinus rhythm and has been breathing comfortably and his arterial blood gases post extubation were satisfactory. Chest tube output is minimal and his chest tubes are discontinued. I think he can be transferred to telemetry later this morning. Exam (Progress Note) - Constitutional Vitals: Period Temp Pulse Resp BP Sys/Lopez Pulse Ox Last 24 Hr 97.3 F-99.0 F 74-109 6-14 86-204/54-92 99-100 Result/EKG - Labs CBC & BMP: 09/16/17 04:00 09/15/17 11:25 Labs: Laboratory Results - last 24 hr 09/14/17 09/15/17 09/15/17 03:25 07:40 07:40 WBC RBC Hgb Hct MCV MCH MCHC RDW Plt Count 165 MPV Neut % (Auto) Lymph % (Auto) Arthur % (Auto) Eos % (Auto) Baso % (Auto) Neut # (Auto) Lymph # (Auto) Arthur # (Auto) Eos # (Auto) Baso # (Auto) Immature Gran % Nucleated RBC % Immature Gran # Nucleated RBCs # Immature Plt Fraction INR PT Patient/Control Mix Circ Anticoag PTT Patient Temperature 37 ABG pH 7.464 H ABG pH at Pt Temp 7.464 ABG pCO2 34.5 L ABG pCO2 at Pt Temp 34.5 ABG pO2 512.0 H ABG pO2 at Pt Temp 512.0 ABG HCO3 25.7 ABG Total CO2 22.3 L ABG O2 Saturation 100.0 ABG Base Excess 1.4 ABG Sodium 141 VBG pH VBG pCO2 VBG pO2 VBG HCO3 VBG Total CO2 VBG O2 Saturation VBG Base Excess Hemoglobin 10.5 L Hematocrit 32.5 L Potassium 3.9 Glucose 113 H Ionized Calcium 1.13 L FiO2 Sodium Chloride Carbon Dioxide Anion Gap BUN Creatinine GFR Calculation BUN/Creatinine Ratio POC Glucose Calculated Osmolality Calcium Venous Ioniz Calcium Magnesium Total Bilirubin AST ALT Alkaline Phosphatase Total Creatine Kinase CK-MB (CK-2) CK and CKMB Interp Troponin I Total Protein Albumin Globulin Albumin/Globulin Ratio Urine Color Urine Appearance Urine pH Ur Specific [place] Urine Protein Urine Glucose (UA) Urine Ketones Urine Blood Urine Nitrate Urine Bilirubin Urine Urobilinogen Urine Leukocytes Urine RBC Urine WBC Ur Culture Indicated? Blood Type O POSITIVE Antibody Screen Negative Crossmatch See Detail 09/15/17 09/15/17 09/15/17 08:55 09:25 10:00 WBC RBC Hgb Hct MCV MCH MCHC RDW Plt Count 115 L D MPV Neut % (Auto) Lymph % (Auto) Arthur % (Auto) Eos % (Auto) Baso % (Auto) Neut # (Auto) Lymph # (Auto) Arthur # (Auto) Eos # (Auto) Baso # (Auto) Immature Gran % Nucleated RBC % Immature Gran # Nucleated RBCs # Immature Plt Fraction INR PT Patient/Control Mix Circ Anticoag PTT Patient Temperature 34 36 ABG pH ABG pH at Pt Temp 7.487 7.425 ABG pCO2 ABG pCO2 at Pt Temp 36.1 40.5 ABG pO2 ABG pO2 at Pt Temp 26.4 30.6 ABG HCO3 ABG Total CO2 ABG O2 Saturation ABG Base Excess ABG Sodium 130 L 135 VBG pH 7.442 7.410 VBG pCO2 41.2 42.5 VBG pO2 32.6 32.8 VBG HCO3 27.5 25.9 VBG Total CO2 28.7 25.5 VBG O2 Saturation 73.6 61.6 VBG Base Excess 3.1 2.1 Hemoglobin 7.6 L 7.3 L D Hematocrit 22.0 L 22.8 L Potassium 5.5 H 5.2 H Glucose 318 H 230 H Ionized Calcium FiO2 80.00 80.00 Sodium Chloride Carbon Dioxide Anion Gap BUN Creatinine GFR Calculation BUN/Creatinine Ratio POC Glucose Calculated Osmolality Calcium Venous Ioniz Calcium 0.92 1.05 L Magnesium Total Bilirubin AST ALT Alkaline Phosphatase Total Creatine Kinase CK-MB (CK-2) CK and CKMB Interp Troponin I Total Protein Albumin Globulin Albumin/Globulin Ratio Urine Color Urine Appearance Urine pH Ur Specific [place] Urine Protein Urine Glucose (UA) Urine Ketones Urine Blood Urine Nitrate Urine Bilirubin Urine Urobilinogen Urine Leukocytes Urine RBC Urine WBC Ur Culture Indicated? Blood Type Antibody Screen Crossmatch 09/15/17 09/15/17 09/15/17 10:00 11:25 11:25 WBC RBC Hgb Hct MCV MCH MCHC RDW Plt Count MPV Neut % (Auto) Lymph % (Auto) Arthur % (Auto) Eos % (Auto) Baso % (Auto) Neut # (Auto) Lymph # (Auto) Arthur # (Auto) Eos # (Auto) Baso # (Auto) Immature Gran % Nucleated RBC % Immature Gran # Nucleated RBCs # Immature Plt Fraction INR PT Patient/Control Mix Circ Anticoag PTT Patient Temperature 37 ABG pH 7.468 H 7.446 ABG pH at Pt Temp 7.468 ABG pCO2 38.7 38.5 ABG pCO2 at Pt Temp 38.7 ABG pO2 428.5 H 176.0 H ABG pO2 at Pt Temp 428.5 ABG HCO3 27.4 H 26.6 H ABG Total CO2 28.6 H 24.5 ABG O2 Saturation 99.1 99.9 ABG Base Excess 3.5 H 2.4 ABG Sodium 138 VBG pH VBG pCO2 VBG pO2 VBG HCO3 VBG Total CO2 VBG O2 Saturation VBG Base Excess Hemoglobin 8.6 L 8.6 L Hematocrit 25.0 L 26.8 L Potassium 4.5 4.3 4.2 Glucose 218 H 192 H 198 H Ionized Calcium 1.10 L FiO2 Sodium 142 Chloride 107 Carbon Dioxide 26 Anion Gap 13.3 BUN 11 Creatinine 1.30 GFR Calculation 88 BUN/Creatinine Ratio 8.00 POC Glucose Calculated Osmolality 286.1 Calcium 8.7 Venous Ioniz Calcium Magnesium 2.4 Total Bilirubin 0.70 AST 24 ALT 30 Alkaline Phosphatase 128 H Total Creatine Kinase CK-MB (CK-2) CK and CKMB Interp Troponin I Total Protein 6.0 L Albumin 3.3 L Globulin 2.7 Albumin/Globulin Ratio 1.2 Urine Color Urine Appearance Urine pH Ur Specific [place] Urine Protein Urine Glucose (UA) Urine Ketones Urine Blood Urine Nitrate Urine Bilirubin Urine Urobilinogen Urine Leukocytes Urine RBC Urine WBC Ur Culture Indicated? Blood Type Antibody Screen Crossmatch 09/15/17 09/15/17 09/15/17 11:25 11:29 11:29 WBC 14.6 H D RBC 2.77 L D Hgb 8.6 L D Hct 24.9 L MCV 89.9 MCH 31 MCHC 34.5 RDW 15.2 Plt Count 198 D MPV 11.0 Neut % (Auto) 87.5 H Lymph % (Auto) 6.4 L Arthur % (Auto) 4.4 Eos % (Auto) 0.8 Baso % (Auto) 0.1 Neut # (Auto) 12.7 H Lymph # (Auto) 0.9 L Arthur # (Auto) 0.6 Eos # (Auto) 0.1 Baso # (Auto) 0.0 Immature Gran % 0.8 Nucleated RBC % 0.0 Immature Gran # 0.11 Nucleated RBCs # 0.00 Immature Plt Fraction 0.0 INR 1.1 PT Patient/Control Mix 11.4 Circ Anticoag PTT 32.7 Patient Temperature ABG pH ABG pH at Pt Temp ABG pCO2 ABG pCO2 at Pt Temp ABG pO2 ABG pO2 at Pt Temp ABG HCO3 ABG Total CO2 ABG O2 Saturation ABG Base Excess ABG Sodium VBG pH VBG pCO2 VBG pO2 VBG HCO3 VBG Total CO2 VBG O2 Saturation VBG Base Excess Hemoglobin Hematocrit Potassium Glucose Ionized Calcium FiO2 Sodium Chloride Carbon Dioxide Anion Gap BUN Creatinine GFR Calculation BUN/Creatinine Ratio POC Glucose Calculated Osmolality Calcium Venous Ioniz Calcium Magnesium Total Bilirubin AST ALT Alkaline Phosphatase Total Creatine Kinase 211 D CK-MB (CK-2) 10.5 H CK and CKMB Interp 5.0 Troponin I 2.130 H Total Protein Albumin Globulin Albumin/Globulin Ratio Urine Color Urine Appearance Urine pH Ur Specific [place] Urine Protein Urine Glucose (UA) Urine Ketones Urine Blood Urine Nitrate Urine Bilirubin Urine Urobilinogen Urine Leukocytes Urine RBC Urine WBC Ur Culture Indicated? Blood Type Antibody Screen Crossmatch 09/15/17 09/15/17 09/15/17 13:16 14:08 14:26 WBC RBC Hgb Hct MCV MCH MCHC RDW Plt Count MPV Neut % (Auto) Lymph % (Auto) Arthur % (Auto) Eos % (Auto) Baso % (Auto) Neut # (Auto) Lymph # (Auto) Arthur # (Auto) Eos # (Auto) Baso # (Auto) Immature Gran % Nucleated RBC % Immature Gran # Nucleated RBCs # Immature Plt Fraction INR PT Patient/Control Mix Circ Anticoag PTT Patient Temperature ABG pH 7.457 H ABG pH at Pt Temp ABG pCO2 34.9 L ABG pCO2 at Pt Temp ABG pO2 135.0 H ABG pO2 at Pt Temp ABG HCO3 25.4 ABG Total CO2 22.3 L ABG O2 Saturation 99.6 ABG Base Excess 1.1 ABG Sodium VBG pH VBG pCO2 VBG pO2 VBG HCO3 VBG Total CO2 VBG O2 Saturation VBG Base Excess Hemoglobin 9.9 L Hematocrit 30.7 L Potassium 4.1 Glucose 111 H Ionized Calcium FiO2 Sodium Chloride Carbon Dioxide Anion Gap BUN Creatinine GFR Calculation BUN/Creatinine Ratio POC Glucose 150 H 128 H Calculated Osmolality Calcium Venous Ioniz Calcium Magnesium Total Bilirubin AST ALT Alkaline Phosphatase Total Creatine Kinase CK-MB (CK-2) CK and CKMB Interp Troponin I Total Protein Albumin Globulin Albumin/Globulin Ratio Urine Color Urine Appearance Urine pH Ur Specific [place] Urine Protein Urine Glucose (UA) Urine Ketones Urine Blood Urine Nitrate Urine Bilirubin Urine Urobilinogen Urine Leukocytes Urine RBC Urine WBC Ur Culture Indicated? Blood Type Antibody Screen Crossmatch 09/15/17 09/15/17 09/15/17 15:00 15:59 16:07 WBC RBC Hgb Hct MCV MCH MCHC RDW Plt Count MPV Neut % (Auto) Lymph % (Auto) Arthur % (Auto) Eos % (Auto) Baso % (Auto) Neut # (Auto) Lymph # (Auto) Arthur # (Auto) Eos # (Auto) Baso # (Auto) Immature Gran % Nucleated RBC % Immature Gran # Nucleated RBCs # Immature Plt Fraction INR PT Patient/Control Mix Circ Anticoag PTT Patient Temperature ABG pH 7.440 ABG pH at Pt Temp ABG pCO2 38.4 ABG pCO2 at Pt Temp ABG pO2 130.0 H ABG pO2 at Pt Temp ABG HCO3 26.2 H ABG Total CO2 23.5 ABG O2 Saturation 99.4 ABG Base Excess 2.0 ABG Sodium VBG pH VBG pCO2 VBG pO2 VBG HCO3 VBG Total CO2 VBG O2 Saturation VBG Base Excess Hemoglobin 10.6 L Hematocrit 32.6 L Potassium 4.1 Glucose 85 Ionized Calcium FiO2 Sodium Chloride Carbon Dioxide Anion Gap BUN Creatinine GFR Calculation BUN/Creatinine Ratio POC Glucose 106 95 Calculated Osmolality Calcium Venous Ioniz Calcium Magnesium Total Bilirubin AST ALT Alkaline Phosphatase Total Creatine Kinase CK-MB (CK-2) CK and CKMB Interp Troponin I Total Protein Albumin Globulin Albumin/Globulin Ratio Urine Color Urine Appearance Urine pH Ur Specific [place] Urine Protein Urine Glucose (UA) Urine Ketones Urine Blood Urine Nitrate Urine Bilirubin Urine Urobilinogen Urine Leukocytes Urine RBC Urine WBC Ur Culture Indicated? Blood Type Antibody Screen Crossmatch 09/15/17 09/15/17 09/15/17 17:01 18:05 19:17 WBC RBC Hgb Hct MCV MCH MCHC RDW Plt Count MPV Neut % (Auto) Lymph % (Auto) Arthur % (Auto) Eos % (Auto) Baso % (Auto) Neut # (Auto) Lymph # (Auto) Arthur # (Auto) Eos # (Auto) Baso # (Auto) Immature Gran % Nucleated RBC % Immature Gran # Nucleated RBCs # Immature Plt Fraction INR PT Patient/Control Mix Circ Anticoag PTT Patient Temperature ABG pH 7.359 ABG pH at Pt Temp ABG pCO2 44.7 ABG pCO2 at Pt Temp ABG pO2 123.0 H ABG pO2 at Pt Temp ABG HCO3 24.1 ABG Total CO2 22.8 L ABG O2 Saturation 98.8 ABG Base Excess -0.4 ABG Sodium VBG pH VBG pCO2 VBG pO2 VBG HCO3 VBG Total CO2 VBG O2 Saturation VBG Base Excess Hemoglobin 10.8 L Hematocrit 33.3 L Potassium 4.1 Glucose 108 H Ionized Calcium FiO2 Sodium Chloride Carbon Dioxide Anion Gap BUN Creatinine GFR Calculation BUN/Creatinine Ratio POC Glucose 90 Calculated Osmolality Calcium Venous Ioniz Calcium Magnesium Total Bilirubin AST ALT Alkaline Phosphatase Total Creatine Kinase 363 H D CK-MB (CK-2) 11.8 H CK and CKMB Interp 3.3 Troponin I 7.460 H D Total Protein Albumin Globulin Albumin/Globulin Ratio Urine Color Urine Appearance Urine pH Ur Specific [place] Urine Protein Urine Glucose (UA) Urine Ketones Urine Blood Urine Nitrate Urine Bilirubin Urine Urobilinogen Urine Leukocytes Urine RBC Urine WBC Ur Culture Indicated? Blood Type Antibody Screen Crossmatch 09/15/17 09/15/17 09/16/17 19:21 Unknown 03:50 WBC RBC Hgb Hct MCV MCH MCHC RDW Plt Count MPV Neut % (Auto) Lymph % (Auto) Arthur % (Auto) Eos % (Auto) Baso % (Auto) Neut # (Auto) Lymph # (Auto) Arthur # (Auto) Eos # (Auto) Baso # (Auto) Immature Gran % Nucleated RBC % Immature Gran # Nucleated RBCs # Immature Plt Fraction INR PT Patient/Control Mix Circ Anticoag PTT Patient Temperature ABG pH 7.396 7.390 ABG pH at Pt Temp ABG pCO2 42.3 43.4 ABG pCO2 at Pt Temp ABG pO2 78.4 L 97.4 H ABG pO2 at Pt Temp ABG HCO3 25.2 25.4 ABG Total CO2 23.4 23.9 ABG O2 Saturation 95.8 98.1 ABG Base Excess 0.9 1.1 ABG Sodium VBG pH VBG pCO2 VBG pO2 VBG HCO3 VBG Total CO2 VBG O2 Saturation VBG Base Excess Hemoglobin 10.6 L 10.1 L Hematocrit 32.7 L 31.4 L Potassium 4.2 4.4 Glucose 114 H 120 H Ionized Calcium FiO2 Sodium Chloride Carbon Dioxide Anion Gap BUN Creatinine GFR Calculation BUN/Creatinine Ratio POC Glucose Calculated Osmolality Calcium Venous Ioniz Calcium Magnesium Total Bilirubin AST ALT Alkaline Phosphatase Total Creatine Kinase CK-MB (CK-2) CK and CKMB Interp Troponin I Total Protein Albumin Globulin Albumin/Globulin Ratio Urine Color Straw Urine Appearance Clear Urine pH 8.0 Ur Specific [place] 1.008 Urine Protein Negative Urine Glucose (UA) Negative Urine Ketones Negative Urine Blood Negative Urine Nitrate Negative Urine Bilirubin Negative Urine Urobilinogen < 2.0 H Urine Leukocytes Negative Urine RBC <1 Urine WBC <1 Ur Culture Indicated? Not indicated Blood Type Antibody Screen Crossmatch 09/16/17 09/16/17 04:00 04:03 WBC 15.6 H RBC 3.27 L Hgb 9.9 L Hct 28.9 L MCV 88.4 MCH 30 MCHC 34.3 RDW 15.9 Plt Count 167 MPV 11.4 Neut % (Auto) 82.3 H Lymph % (Auto) 8.4 L Arthur % (Auto) 8.6 Eos % (Auto) 0.0 Baso % (Auto) 0.1 Neut # (Auto) 12.8 H Lymph # (Auto) 1.3 L Arthur # (Auto) 1.3 H Eos # (Auto) 0.0 Baso # (Auto) 0.0 Immature Gran % 0.6 Nucleated RBC % 0.0 Immature Gran # 0.10 Nucleated RBCs # 0.00 Immature Plt Fraction 0.0 INR PT Patient/Control Mix Circ Anticoag PTT Patient Temperature ABG pH ABG pH at Pt Temp ABG pCO2 ABG pCO2 at Pt Temp ABG pO2 ABG pO2 at Pt Temp ABG HCO3 ABG Total CO2 ABG O2 Saturation ABG Base Excess ABG Sodium VBG pH VBG pCO2 VBG pO2 VBG HCO3 VBG Total CO2 VBG O2 Saturation VBG Base Excess Hemoglobin Hematocrit Potassium Glucose Ionized Calcium FiO2 Sodium Chloride Carbon Dioxide Anion Gap BUN Creatinine GFR Calculation BUN/Creatinine Ratio POC Glucose Calculated Osmolality Calcium Venous Ioniz Calcium Magnesium Total Bilirubin AST ALT Alkaline Phosphatase Total Creatine Kinase 474 H D CK-MB (CK-2) 9.1 H CK and CKMB Interp 1.9 Troponin I 5.440 H D Total Protein Albumin Globulin Albumin/Globulin Ratio Urine Color Urine Appearance Urine pH Ur Specific [place] Urine Protein Urine Glucose (UA) Urine Ketones Urine Blood Urine Nitrate Urine Bilirubin Urine Urobilinogen Urine Leukocytes Urine RBC Urine WBC Ur Culture Indicated? Blood Type Antibody Screen Crossmatch Quality Measures - VTE Contraindication to Pharmacological VTE Prophylaxis: High Risk of Bleeding
[2017-09-16] MEDS ORDERED: LINACLOTIDE 145 MCG CAPSULE PO PRN (06:37)
[2017-09-16] MEDS ORDERED: FLUTICASONE 50 MCG NASAL SPRAY 16 GM BOTTLE BOTH NARES PRN (06:37)
--- NOTE | 2017-09-16 07:17 | Order Completion Report ---
See report scanned to EMR
--- NOTE | 2017-09-16 08:28 | XRay Report ---
Portable chest Date: 09/16/2017 Clinical history: Chest tube removal, evaluate for pneumothorax Comparison: 09/15/2017 Technique: Portable AP sitting chest Findings: Stable cardiomegaly in patient with recent median sternotomy. Interval removal of endotracheal tube, nasogastric tube, and mediastinal chest tubes with stable right IJ CVP line. No evidence of pneumothorax. Progressive atelectasis and somewhat loculated appearing left pleural effusion. Impression: Status post median sternotomy with removal of endotracheal tube, nasogastric tube mediastinal chest tubes. No definite pneumothorax is identified. However there is progressive atelectasis/edema with larger somewhat loculated appearing left pleural effusion. Resultant indeterminate pleural-based density laterally in the left midlung zone and follow-up chest x-ray is recommended. PROCEDURE INTERPRETED AT [facility] DEPARTMENT OF RADIOLOGY Final Report Signed by: Dr. Misty Elena
[2017-09-16] MEDS: SERTRALINE 100 MG TABLET PO SCH (08:33)
[2017-09-16] MEDS: sitaGLIPtin 100 MG TABLET PO SCH (08:34)
[2017-09-16] MEDS: ASPIRIN EC 81 MG TABLET PO SCH (08:34)
[2017-09-16] MEDS: PHENYTOIN ER 100 MG CAPSULE PO SCH ×2 (08:34→21:14)
[2017-09-16] MEDS: hydroCHLOROthiazide 25 MG TABLET PO SCH (08:34)
[2017-09-16] MEDS: TAMSULOSIN 0.4 MG CAPSULE PO SCH (08:34)
[2017-09-16] MEDS: FOLIC ACID 1 MG TABLET PO SCH (08:34)
[2017-09-16] MEDS: metFORMIN 500 MG TABLET PO SCH (08:34)
[2017-09-16] MEDS: CHLORHEXIDINE 0.12% ORAL RINSE 60 ML BOTTLE SWISH/SPIT SCH ×3 (08:35→21:16)
[2017-09-16] MEDS: MELOXICAM 7.5 MG TABLET PO SCH (08:35)
[2017-09-16] MEDS: CETIRIZINE 10 MG TABLET PO SCH (08:35)
[2017-09-16 08:50] LABS: Alanine Aminotransferase 25 U/L (16-61); Albumin 3.2 G/DL (3.4-5.0); Alkaline Phosphatase 118 U/L (45-117); Aspartate Amino Transferase 32 U/L (0-37); Bilirubin,Total < 0.39 MG/DL (0.2-1.0); Blood Urea Nitrogen 17 MG/DL (7-18); Calcium 8.3 MG/DL (8.5-10.1); Glucose 115 MG/DL (74-106); Magnesium 2.1 MG/DL (1.8-2.4); Osmolality,Calculated 285.1 MOS/KG (273-304); Potassium 4.4 MMOL/L (3.5-5.1); Sodium 142 MMOL/L (136-145); Total Protein 6.2 G/DL (6.4-8.3)
[2017-09-16] MEDS ORDERED: predniSONE 5 MG TABLET PO SCH (09:00)
[2017-09-16] MEDS ORDERED: amLODIPine 5 MG TABLET PO SCH (09:00)
[2017-09-16] MEDS ORDERED: ONDANSETRON 4 MG/2 ML VIAL IV PRN (09:01)
[2017-09-16] MEDS ORDERED: SODIUM CHLOR 0.45% KCL 20 MEQ 20 MEQ/1,000 ML BAG IV SCH (09:01)
[2017-09-16] MEDS ORDERED: ALUMINUM/MAGNES/SIMETH MAX STR 30 ML UDCUP PO PRN (09:01)
[2017-09-16] MEDS ORDERED: GLUCAGON 1 MG VIAL IM PRN ×2 (09:01→23:46)
[2017-09-16] MEDS ORDERED: oxyCODONE/ACETAMINOPHEN 5-325 MG TABLET PO PRN (09:01)
[2017-09-16] MEDS ORDERED: DEXTROSE 50% 25 GM/50 ML VIAL IV PRN ×2 (09:01→23:46)
[2017-09-16] MEDS ORDERED: POTASSIUM CHLORIDE 20 MEQ TABLET PO PRN (09:01)
[2017-09-16] MEDS ORDERED: MAGNESIUM HYDROXIDE SUSP 30 ML UDCUP PO PRN (09:01)
[2017-09-16] MEDS ORDERED: MAGNESIUM SULF RIDER 4 GM in PREMIX 1 EACH IV PRN (09:01)
[2017-09-16] MEDS ORDERED: ACETAMINOPHEN 325 MG TABLET PO PRN (09:01)
[2017-09-16] MEDS ORDERED: MAGNESIUM SULF RIDER 2 GM in PREMIX 1 EACH IV PRN (09:01)
[2017-09-16] MEDS: SODIUM CHLORIDE 0.9% 1,000 ML IV SCH (09:18)
[2017-09-16] MEDS: PANTOPRAZOLE 40 MG TABLET PO SCH (09:49)
[2017-09-16] MEDS: CARVEDILOL 3.125 MG TABLET PO SCH ×2 (09:49→21:14)
[2017-09-16] MEDS: FERROUS SULFATE 325 MG TABLET PO SCH (09:49)
[2017-09-16] MEDS: DOCUSATE SODIUM 100 MG CAPSULE PO SCH (09:49)
--- NOTE | 2017-09-16 14:24 | Cardiology Progress Note ---
Demario Sherman Lesley, MARTÍN, am scribing for, and in the presence of, Jocelyn Langston NP 14:06. Assessment and Plan - Time spent with patient Time spent with patient: Greater than 30 minutes (Record review, assessment, medication review, and documentation) (1) Hypertension Status: Chronic Assessment and plan: SEE PLAN LISTED BELOW Current Visit: Yes (2) Seizure disorder Status: Chronic Assessment and plan: SEE PLAN LISTED BELOW Current Visit: No (3) History of stroke Status: Chronic Current Visit: Yes (4) CAD (coronary artery disease) Status: Chronic Assessment and plan: SEE PLAN LISTED BELOW Current Visit: Yes Qualifiers: Coronary Disease-Associated Artery/Lesion type: [place] artery [place] vs. transplanted heart: [place] heart Associated angina: without angina Qualified Code(s): I25.10 - Atherosclerotic heart disease of [place] coronary artery without angina pectoris (5) Diabetes Status: Chronic Assessment and plan: SEE PLAN LISTED BELOW Current Visit: Yes Qualifiers: Diabetes mellitus type: type 2 Diabetes mellitus complication status: without complication Diabetes mellitus exterminator helper termite insulin use: without exterminator helper termite use Qualified Code(s): E11.9 - Type 2 diabetes mellitus without complications (6) Hyperlipidemia Status: Chronic Assessment and plan: SEE PLAN LISTED BELOW Current Visit: Yes (7) Suspected sleep apnea Status: Chronic Assessment and plan: SEE PLAN OF CARE LISTED BELOW Current Visit: Yes (8) Status post coronary artery bypass graft Status: Acute Assessment and plan: SEE PLAN LISTED BELOW Current Visit: Yes Cardiology - PN: Subj Interval history: 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 Barraza is a 62 year old BM, admitted with unstable angina. Cardiac catheterization revealed severe 2 vessel disease, not amenable to PCI. PMH significant for hypertension, CVA, CAD with PCI, Dyslipidemia, BPH, DM2, seizure disorder post stroke X1, GERD, remote smoker (quit over 30 years ago). PSH cervical fusion, appendectomy, cardiac cath with PCI. Cardiac cath severe 2V disease, pLAD and diagonal, LVEF > 55%. Sleep medicine consult, patient will need outpatient polysomnography. 09/15/17 CABG with left internal mammary graft to the anterior descending coronary artery and a saphenous vein graft to the diagonal coronary artery. September 16, 2017: The following chronic conditions are being monitored CAD, Hypertension, DM2 and are currently stable. Followed for more acute conditions to include recent CABG. Denies chest pain, heaviness, tightness. Denies shortness of breath, PND or orthopnea. POD #1, he is extubated and chest tubes have been pulled. The patient was seen in CCU, but will be transferred to Telemetry today. Blood pressure stable, 129/63. Oxygen saturation 100% on 2L NC. EKG reveals SR rate in the 70s. I & O reviewed, weight is up 3#. Lab data: WBC 15.6, Hgb 9.9, Hct 29, Neut 12.8, CK 474, CK-MB 9.1, Trop 5.440. Continue aspirin, beta-lissy, lipid-lowering agent. When BP will allow, will use MARY GRACE. Rehab has seen and counseled the patient. Plan to resume CAD medication regimen today as patient tolerates. Further discuss with Dr. Jackson and await additional recommendations. September 16, 2017 ROS: Cardiovascular: Mild chest soreness but overall no chest pain heaviness or tightness Pulmonary: Shortness of breath is stable, improved. Denies orthopnea PND Past intestinal: Denies nausea, vomiting or diarrhea. Denies chest pain, he no acute distress IMPRESSION AND PLAN: CAD - POD #1, CABG X 2. Resume ASA, Crestor, initiate beta lissy. Will use MARY GRACE inhibitor when able HYPERTENSION - controlled, currently on low-dose beta-lissy. When possible will start an MARY GRACE inhibitor. On clonidine in the evening and this may be for sedation purposes. May consider discontinuing in the future. DYSLIPIDEMIA - continue Crestor. DM2 - Januvia and Metformin, accuchecks, monitor closely. HISTORY OF STROKE - BP well controlled, monitor closely. Continue aspirin SEIZURE DISORDER - seizure X 1 post stroke, monitor closely. SUSPECTED SLEEP APNEA - using CPAP at night. Exam (Progress Note) - Constitutional Vitals: Period Temp Pulse Resp BP Sys/Lopez Pulse Ox Last 24 Hr 97.3 F-99.0 F 72-109 6-14 86-204/54-92 99-100 Exam: General: Appears well with no apparent distress. Pleasant and cooperative. Appears comfortable. HEENT: PERRL, normocephalic, atraumatic. Mucous membranes moist. No jaundice noted. Conjunctiva moist and clear, sclerae anicteric. Neck: No JVD, no thyromegaly or lymphadenopathy noted. No carotid bruit appreciated. Cardiac: Regular rate and rhythm. No murmur rub or gallop. PMI is nondisplaced. Lungs: Essentially clear to auscultation without accessory muscle use, slight bilateral rhonchi. Oxygen in use via nasal cannula. Abdomen: Soft, bowel sounds normoactive. Nontender and nondistended. No abdominal bruit or thrill noted. No masses noted. Musculoskeletal: No fluid collection. Decreased range of motion is noted. Surgical dressings intact. Extremities: No clubbing, cyanosis noted. No edema noted. Upper extremity pulses 2+. Lower extremity pulses 2+. Capillary refill less than 3 seconds. Skin: Warm and dry. No unusual lesions or rashes. No skin breakdown appreciated. Surgical dressings intact to midline sternum, abdomen dressings, and right lower extremity intact. Neuro: Awake, alert and oriented 3. Moves all extremities well without hemiparesis or paralysis. No essential tremor is appreciated. Result/EKG - Labs CBC & BMP: 09/16/17 04:00 09/16/17 05:00 Lab Results: I have reviewed the past 24 hour labs Labs: Laboratory Results - last 24 hr 09/14/17 09/15/17 09/15/17 03:25 07:40 07:40 WBC RBC Hgb Hct MCV MCH MCHC RDW Plt Count 165 MPV Neut % (Auto) Lymph % (Auto) [place] % (Auto) Eos % (Auto) Baso % (Auto) Neut # (Auto) Lymph # (Auto) [place] # (Auto) Eos # (Auto) Baso # (Auto) Immature Gran % Nucleated RBC % Immature Gran # Nucleated RBCs # Immature Plt Fraction INR PT Patient/Control Mix Circ Anticoag PTT Patient Temperature 37 ABG pH 7.464 H ABG pH at Pt Temp 7.464 ABG pCO2 34.5 L ABG pCO2 at Pt Temp 34.5 ABG pO2 512.0 H ABG pO2 at Pt Temp 512.0 ABG HCO3 25.7 ABG Total CO2 22.3 L ABG O2 Saturation 100.0 ABG Base Excess 1.4 ABG Sodium 141 VBG pH VBG pCO2 VBG pO2 VBG HCO3 VBG Total CO2 VBG O2 Saturation VBG Base Excess Hemoglobin 10.5 L Hematocrit 32.5 L Potassium 3.9 Glucose 113 H Ionized Calcium 1.13 L FiO2 Sodium Chloride Carbon Dioxide Anion Gap BUN Creatinine GFR Calculation BUN/Creatinine Ratio POC Glucose Calculated Osmolality Calcium Venous Ioniz Calcium Magnesium Total Bilirubin AST ALT Alkaline Phosphatase Total Creatine Kinase CK-MB (CK-2) CK and CKMB Interp Troponin I Total Protein Albumin Globulin Albumin/Globulin Ratio Urine Color Urine Appearance Urine pH Ur Specific [place] Urine Protein Urine Glucose (UA) Urine Ketones Urine Blood Urine Nitrate Urine Bilirubin Urine Urobilinogen Urine Leukocytes Urine RBC Urine WBC Ur Culture Indicated? Blood Type O POSITIVE Antibody Screen Negative Crossmatch See Detail 09/15/17 09/15/17 09/15/17 08:55 09:25 10:00 WBC RBC Hgb Hct MCV MCH MCHC RDW Plt Count 115 L D MPV Neut % (Auto) Lymph % (Auto) [place] % (Auto) Eos % (Auto) Baso % (Auto) Neut # (Auto) Lymph # (Auto) [place] # (Auto) Eos # (Auto) Baso # (Auto) Immature Gran % Nucleated RBC % Immature Gran # Nucleated RBCs # Immature Plt Fraction INR PT Patient/Control Mix Circ Anticoag PTT Patient Temperature 34 36 ABG pH ABG pH at Pt Temp 7.487 7.425 ABG pCO2 ABG pCO2 at Pt Temp 36.1 40.5 ABG pO2 ABG pO2 at Pt Temp 26.4 30.6 ABG HCO3 ABG Total CO2 ABG O2 Saturation ABG Base Excess ABG Sodium 130 L 135 VBG pH 7.442 7.410 VBG pCO2 41.2 42.5 VBG pO2 32.6 32.8 VBG HCO3 27.5 25.9 VBG Total CO2 28.7 25.5 VBG O2 Saturation 73.6 61.6 VBG Base Excess 3.1 2.1 Hemoglobin 7.6 L 7.3 L D Hematocrit 22.0 L 22.8 L Potassium 5.5 H 5.2 H Glucose 318 H 230 H Ionized Calcium FiO2 80.00 80.00 Sodium Chloride Carbon Dioxide Anion Gap BUN Creatinine GFR Calculation BUN/Creatinine Ratio POC Glucose Calculated Osmolality Calcium Venous Ioniz Calcium 0.92 1.05 L Magnesium Total Bilirubin AST ALT Alkaline Phosphatase Total Creatine Kinase CK-MB (CK-2) CK and CKMB Interp Troponin I Total Protein Albumin Globulin Albumin/Globulin Ratio Urine Color Urine Appearance Urine pH Ur Specific [place] Urine Protein Urine Glucose (UA) Urine Ketones Urine Blood Urine Nitrate Urine Bilirubin Urine Urobilinogen Urine Leukocytes Urine RBC Urine WBC Ur Culture Indicated? Blood Type Antibody Screen Crossmatch 09/15/17 09/15/17 09/15/17 10:00 11:25 11:25 WBC RBC Hgb Hct MCV MCH MCHC RDW Plt Count MPV Neut % (Auto) Lymph % (Auto) [place] % (Auto) Eos % (Auto) Baso % (Auto) Neut # (Auto) Lymph # (Auto) [place] # (Auto) Eos # (Auto) Baso # (Auto) Immature Gran % Nucleated RBC % Immature Gran # Nucleated RBCs # Immature Plt Fraction INR PT Patient/Control Mix Circ Anticoag PTT Patient Temperature 37 ABG pH 7.468 H 7.446 ABG pH at Pt Temp 7.468 ABG pCO2 38.7 38.5 ABG pCO2 at Pt Temp 38.7 ABG pO2 428.5 H 176.0 H ABG pO2 at Pt Temp 428.5 ABG HCO3 27.4 H 26.6 H ABG Total CO2 28.6 H 24.5 ABG O2 Saturation 99.1 99.9 ABG Base Excess 3.5 H 2.4 ABG Sodium 138 VBG pH VBG pCO2 VBG pO2 VBG HCO3 VBG Total CO2 VBG O2 Saturation VBG Base Excess Hemoglobin 8.6 L 8.6 L Hematocrit 25.0 L 26.8 L Potassium 4.5 4.3 4.2 Glucose 218 H 192 H 198 H Ionized Calcium 1.10 L FiO2 Sodium 142 Chloride 107 Carbon Dioxide 26 Anion Gap 13.3 BUN 11 Creatinine 1.30 GFR Calculation 88 BUN/Creatinine Ratio 8.00 POC Glucose Calculated Osmolality 286.1 Calcium 8.7 Venous Ioniz Calcium Magnesium 2.4 Total Bilirubin 0.70 AST 24 ALT 30 Alkaline Phosphatase 128 H Total Creatine Kinase CK-MB (CK-2) CK and CKMB Interp Troponin I Total Protein 6.0 L Albumin 3.3 L Globulin 2.7 Albumin/Globulin Ratio 1.2 Urine Color Urine Appearance Urine pH Ur Specific [place] Urine Protein Urine Glucose (UA) Urine Ketones Urine Blood Urine Nitrate Urine Bilirubin Urine Urobilinogen Urine Leukocytes Urine RBC Urine WBC Ur Culture Indicated? Blood Type Antibody Screen Crossmatch 09/15/17 09/15/17 09/15/17 11:25 11:29 11:29 WBC 14.6 H D RBC 2.77 L D Hgb 8.6 L D Hct 24.9 L MCV 89.9 MCH 31 MCHC 34.5 RDW 15.2 Plt Count 198 D MPV 11.0 Neut % (Auto) 87.5 H Lymph % (Auto) 6.4 L [place] % (Auto) 4.4 Eos % (Auto) 0.8 Baso % (Auto) 0.1 Neut # (Auto) 12.7 H Lymph # (Auto) 0.9 L [place] # (Auto) 0.6 Eos # (Auto) 0.1 Baso # (Auto) 0.0 Immature Gran % 0.8 Nucleated RBC % 0.0 Immature Gran # 0.11 Nucleated RBCs # 0.00 Immature Plt Fraction 0.0 INR 1.1 PT Patient/Control Mix 11.4 Circ Anticoag PTT 32.7 Patient Temperature ABG pH ABG pH at Pt Temp ABG pCO2 ABG pCO2 at Pt Temp ABG pO2 ABG pO2 at Pt Temp ABG HCO3 ABG Total CO2 ABG O2 Saturation ABG Base Excess ABG Sodium VBG pH VBG pCO2 VBG pO2 VBG HCO3 VBG Total CO2 VBG O2 Saturation VBG Base Excess Hemoglobin Hematocrit Potassium Glucose Ionized Calcium FiO2 Sodium Chloride Carbon Dioxide Anion Gap BUN Creatinine GFR Calculation BUN/Creatinine Ratio POC Glucose Calculated Osmolality Calcium Venous Ioniz Calcium Magnesium Total Bilirubin AST ALT Alkaline Phosphatase Total Creatine Kinase 211 D CK-MB (CK-2) 10.5 H CK and CKMB Interp 5.0 Troponin I 2.130 H Total Protein Albumin Globulin Albumin/Globulin Ratio Urine Color Urine Appearance Urine pH Ur Specific [place] Urine Protein Urine Glucose (UA) Urine Ketones Urine Blood Urine Nitrate Urine Bilirubin Urine Urobilinogen Urine Leukocytes Urine RBC Urine WBC Ur Culture Indicated? Blood Type Antibody Screen Crossmatch 09/15/17 09/15/17 09/15/17 13:16 14:08 14:26 WBC RBC Hgb Hct MCV MCH MCHC RDW Plt Count MPV Neut % (Auto) Lymph % (Auto) [place] % (Auto) Eos % (Auto) Baso % (Auto) Neut # (Auto) Lymph # (Auto) [place] # (Auto) Eos # (Auto) Baso # (Auto) Immature Gran % Nucleated RBC % Immature Gran # Nucleated RBCs # Immature Plt Fraction INR PT Patient/Control Mix Circ Anticoag PTT Patient Temperature ABG pH 7.457 H ABG pH at Pt Temp ABG pCO2 34.9 L ABG pCO2 at Pt Temp ABG pO2 135.0 H ABG pO2 at Pt Temp ABG HCO3 25.4 ABG Total CO2 22.3 L ABG O2 Saturation 99.6 ABG Base Excess 1.1 ABG Sodium VBG pH VBG pCO2 VBG pO2 VBG HCO3 VBG Total CO2 VBG O2 Saturation VBG Base Excess Hemoglobin 9.9 L Hematocrit 30.7 L Potassium 4.1 Glucose 111 H Ionized Calcium FiO2 Sodium Chloride Carbon Dioxide Anion Gap BUN Creatinine GFR Calculation BUN/Creatinine Ratio POC Glucose 150 H 128 H Calculated Osmolality Calcium Venous Ioniz Calcium Magnesium Total Bilirubin AST ALT Alkaline Phosphatase Total Creatine Kinase CK-MB (CK-2) CK and CKMB Interp Troponin I Total Protein Albumin Globulin Albumin/Globulin Ratio Urine Color Urine Appearance Urine pH Ur Specific [place] Urine Protein Urine Glucose (UA) Urine Ketones Urine Blood Urine Nitrate Urine Bilirubin Urine Urobilinogen Urine Leukocytes Urine RBC Urine WBC Ur Culture Indicated? Blood Type Antibody Screen Crossmatch 09/15/17 09/15/17 09/15/17 15:00 15:59 16:07 WBC RBC Hgb Hct MCV MCH MCHC RDW Plt Count MPV Neut % (Auto) Lymph % (Auto) [place] % (Auto) Eos % (Auto) Baso % (Auto) Neut # (Auto) Lymph # (Auto) [place] # (Auto) Eos # (Auto) Baso # (Auto) Immature Gran % Nucleated RBC % Immature Gran # Nucleated RBCs # Immature Plt Fraction INR PT Patient/Control Mix Circ Anticoag PTT Patient Temperature ABG pH 7.440 ABG pH at Pt Temp ABG pCO2 38.4 ABG pCO2 at Pt Temp ABG pO2 130.0 H ABG pO2 at Pt Temp ABG HCO3 26.2 H ABG Total CO2 23.5 ABG O2 Saturation 99.4 ABG Base Excess 2.0 ABG Sodium VBG pH VBG pCO2 VBG pO2 VBG HCO3 VBG Total CO2 VBG O2 Saturation VBG Base Excess Hemoglobin 10.6 L Hematocrit 32.6 L Potassium 4.1 Glucose 85 Ionized Calcium FiO2 Sodium Chloride Carbon Dioxide Anion Gap BUN Creatinine GFR Calculation BUN/Creatinine Ratio POC Glucose 106 95 Calculated Osmolality Calcium Venous Ioniz Calcium Magnesium Total Bilirubin AST ALT Alkaline Phosphatase Total Creatine Kinase CK-MB (CK-2) CK and CKMB Interp Troponin I Total Protein Albumin Globulin Albumin/Globulin Ratio Urine Color Urine Appearance Urine pH Ur Specific [place] Urine Protein Urine Glucose (UA) Urine Ketones Urine Blood Urine Nitrate Urine Bilirubin Urine Urobilinogen Urine Leukocytes Urine RBC Urine WBC Ur Culture Indicated? Blood Type Antibody Screen Crossmatch 09/15/17 09/15/17 09/15/17 17:01 18:05 19:17 WBC RBC Hgb Hct MCV MCH MCHC RDW Plt Count MPV Neut % (Auto) Lymph % (Auto) [place] % (Auto) Eos % (Auto) Baso % (Auto) Neut # (Auto) Lymph # (Auto) [place] # (Auto) Eos # (Auto) Baso # (Auto) Immature Gran % Nucleated RBC % Immature Gran # Nucleated RBCs # Immature Plt Fraction INR PT Patient/Control Mix Circ Anticoag PTT Patient Temperature ABG pH 7.359 ABG pH at Pt Temp ABG pCO2 44.7 ABG pCO2 at Pt Temp ABG pO2 123.0 H ABG pO2 at Pt Temp ABG HCO3 24.1 ABG Total CO2 22.8 L ABG O2 Saturation 98.8 ABG Base Excess -0.4 ABG Sodium VBG pH VBG pCO2 VBG pO2 VBG HCO3 VBG Total CO2 VBG O2 Saturation VBG Base Excess Hemoglobin 10.8 L Hematocrit 33.3 L Potassium 4.1 Glucose 108 H Ionized Calcium FiO2 Sodium Chloride Carbon Dioxide Anion Gap BUN Creatinine GFR Calculation BUN/Creatinine Ratio POC Glucose 90 Calculated Osmolality Calcium Venous Ioniz Calcium Magnesium Total Bilirubin AST ALT Alkaline Phosphatase Total Creatine Kinase 363 H D CK-MB (CK-2) 11.8 H CK and CKMB Interp 3.3 Troponin I 7.460 H D Total Protein Albumin Globulin Albumin/Globulin Ratio Urine Color Urine Appearance Urine pH Ur Specific [place] Urine Protein Urine Glucose (UA) Urine Ketones Urine Blood Urine Nitrate Urine Bilirubin Urine Urobilinogen Urine Leukocytes Urine RBC Urine WBC Ur Culture Indicated? Blood Type Antibody Screen Crossmatch 09/15/17 09/15/17 09/16/17 19:21 Unknown 03:50 WBC RBC Hgb Hct MCV MCH MCHC RDW Plt Count MPV Neut % (Auto) Lymph % (Auto) [place] % (Auto) Eos % (Auto) Baso % (Auto) Neut # (Auto) Lymph # (Auto) [place] # (Auto) Eos # (Auto) Baso # (Auto) Immature Gran % Nucleated RBC % Immature Gran # Nucleated RBCs # Immature Plt Fraction INR PT Patient/Control Mix Circ Anticoag PTT Patient Temperature ABG pH 7.396 7.390 ABG pH at Pt Temp ABG pCO2 42.3 43.4 ABG pCO2 at Pt Temp ABG pO2 78.4 L 97.4 H ABG pO2 at Pt Temp ABG HCO3 25.2 25.4 ABG Total CO2 23.4 23.9 ABG O2 Saturation 95.8 98.1 ABG Base Excess 0.9 1.1 ABG Sodium VBG pH VBG pCO2 VBG pO2 VBG HCO3 VBG Total CO2 VBG O2 Saturation VBG Base Excess Hemoglobin 10.6 L 10.1 L Hematocrit 32.7 L 31.4 L Potassium 4.2 4.4 Glucose 114 H 120 H Ionized Calcium FiO2 Sodium Chloride Carbon Dioxide Anion Gap BUN Creatinine GFR Calculation BUN/Creatinine Ratio POC Glucose Calculated Osmolality Calcium Venous Ioniz Calcium Magnesium Total Bilirubin AST ALT Alkaline Phosphatase Total Creatine Kinase CK-MB (CK-2) CK and CKMB Interp Troponin I Total Protein Albumin Globulin Albumin/Globulin Ratio Urine Color Straw Urine Appearance Clear Urine pH 8.0 Ur Specific [place] 1.008 Urine Protein Negative Urine Glucose (UA) Negative Urine Ketones Negative Urine Blood Negative Urine Nitrate Negative Urine Bilirubin Negative Urine Urobilinogen < 2.0 H Urine Leukocytes Negative Urine RBC <1 Urine WBC <1 Ur Culture Indicated? Not indicated Blood Type Antibody Screen Crossmatch 09/16/17 09/16/17 04:00 04:03 WBC 15.6 H RBC 3.27 L Hgb 9.9 L Hct 28.9 L MCV 88.4 MCH 30 MCHC 34.3 RDW 15.9 Plt Count 167 MPV 11.4 Neut % (Auto) 82.3 H Lymph % (Auto) 8.4 L [place] % (Auto) 8.6 Eos % (Auto) 0.0 Baso % (Auto) 0.1 Neut # (Auto) 12.8 H Lymph # (Auto) 1.3 L [place] # (Auto) 1.3 H Eos # (Auto) 0.0 Baso # (Auto) 0.0 Immature Gran % 0.6 Nucleated RBC % 0.0 Immature Gran # 0.10 Nucleated RBCs # 0.00 Immature Plt Fraction 0.0 INR PT Patient/Control Mix Circ Anticoag PTT Patient Temperature ABG pH ABG pH at Pt Temp ABG pCO2 ABG pCO2 at Pt Temp ABG pO2 ABG pO2 at Pt Temp ABG HCO3 ABG Total CO2 ABG O2 Saturation ABG Base Excess ABG Sodium VBG pH VBG pCO2 VBG pO2 VBG HCO3 VBG Total CO2 VBG O2 Saturation VBG Base Excess Hemoglobin Hematocrit Potassium Glucose Ionized Calcium FiO2 Sodium Chloride Carbon Dioxide Anion Gap BUN Creatinine GFR Calculation BUN/Creatinine Ratio POC Glucose Calculated Osmolality Calcium Venous Ioniz Calcium Magnesium Total Bilirubin AST ALT Alkaline Phosphatase Total Creatine Kinase 474 H D CK-MB (CK-2) 9.1 H CK and CKMB Interp 1.9 Troponin I 5.440 H D Total Protein Albumin Globulin Albumin/Globulin Ratio Urine Color Urine Appearance Urine pH Ur Specific [place] Urine Protein Urine Glucose (UA) Urine Ketones Urine Blood Urine Nitrate Urine Bilirubin Urine Urobilinogen Urine Leukocytes Urine RBC Urine WBC Ur Culture Indicated? Blood Type Antibody Screen Crossmatch - Diagnostic Findings Procedure: Chest x-ray: image reviewed by me - EKG EKG results: interpreted by me, sinus rhythm Quality Measures - VTE Contraindication to Pharmacological VTE Prophylaxis: High Risk of Bleeding Specialty Discharge - Follow Up or Referrals Kian Sherman Bonnie E, NP, personally performed the services described in this documentation, ascribed by Dori Hanks NP in my presence, and it is both accurate and complete 424 .
--- NOTE | 2017-09-16 15:26 | Cardiology Progress Note ---
Assessment and Plan (1) CAD (coronary artery disease) Status: Chronic Assessment and plan: 62-year-old black male, followed by Dr. Wagner. Admitted with unstable angina, severe two-vessel disease, not amenable to PCI. History of CVA. CABG . -Hemodynamically stable. Will resume CAD regimen in a.m. Current Visit: Yes Qualifiers: Coronary Disease-Associated Artery/Lesion type: [place] artery [place] vs. transplanted heart: [place] heart Associated angina: without angina Qualified Code(s): I25.10 - Atherosclerotic heart disease of [place] coronary artery without angina pectoris (2) History of stroke Status: Chronic Current Visit: Yes Cardiology - PN: Subj Interval history: He is feeling fine. Heart rate, blood pressure well controlled. Minor incisional pain. Telemetry shows no significant arrhythmia. Ambulated a bit, no issues so far. Exam (Progress Note) - Constitutional Vitals: Period Temp Pulse Resp BP Sys/Lopez Pulse Ox Last 24 Hr 97.0 F-99.0 F 70-99 6-20 107-204/59-92 98-100 General appearance: normal weight, over weight - Head Head exam: Present: normal inspection. Absent: contusion - Eye Eye exam: Absent: periorbital swelling, laceration to eyelids Pupils: Absent: dilated - ENT ENT exam: Present: normal external ear exam - Neck Neck exam: Present: normal inspection - Respiratory Respiratory exam: Present: decreased breath sounds, rhonchi. Absent: wheezes - Cardiovascular Cardiovascular exam: Present: regular rate and rhythm. Absent: JVD, systolic murmur, tachycardia - GI/Abdominal GI/Abdominal exam: Present: normal bowel sounds. Absent: distended - Extremities Exam Extremities exam: Present: normal inspection, normal capillary refill, other ( Incisions dry). Absent: edema - Neurological Exam Neurological exam: Present: alert, oriented X3 - Psychiatric Psychiatric exam: Present: normal affect, normal mood - Skin Skin exam: Present: normal color, warm Result/EKG - Labs CBC & BMP: 09/16/17 04:00 09/16/17 05:00 Lab Results: I have reviewed the past 24 hour labs Labs: Laboratory Results - last 24 hr 09/15/17 09/15/17 09/15/17 13:16 14:08 15:00 WBC RBC Hgb Hct MCV MCH MCHC RDW Plt Count MPV Neut % (Auto) Lymph % (Auto) [place] % (Auto) Eos % (Auto) Baso % (Auto) Neut # (Auto) Lymph # (Auto) [place] # (Auto) Eos # (Auto) Baso # (Auto) Immature Gran % Nucleated RBC % Immature Gran # Nucleated RBCs # Immature Plt Fraction ABG pH ABG pCO2 ABG pO2 ABG HCO3 ABG Total CO2 ABG O2 Saturation ABG Base Excess Hemoglobin Hematocrit Potassium Glucose Sodium Chloride Carbon Dioxide Anion Gap BUN Creatinine GFR Calculation BUN/Creatinine Ratio POC Glucose 150 H 128 H 106 Calculated Osmolality Calcium Magnesium Total Bilirubin Direct Bilirubin AST ALT Alkaline Phosphatase Total Creatine Kinase CK-MB (CK-2) CK and CKMB Interp Troponin I Total Protein Albumin Globulin Albumin/Globulin Ratio 09/15/17 09/15/17 09/15/17 15:59 16:07 17:01 WBC RBC Hgb Hct MCV MCH MCHC RDW Plt Count MPV Neut % (Auto) Lymph % (Auto) [place] % (Auto) Eos % (Auto) Baso % (Auto) Neut # (Auto) Lymph # (Auto) [place] # (Auto) Eos # (Auto) Baso # (Auto) Immature Gran % Nucleated RBC % Immature Gran # Nucleated RBCs # Immature Plt Fraction ABG pH 7.440 ABG pCO2 38.4 ABG pO2 130.0 H ABG HCO3 26.2 H ABG Total CO2 23.5 ABG O2 Saturation 99.4 ABG Base Excess 2.0 Hemoglobin 10.6 L Hematocrit 32.6 L Potassium 4.1 Glucose 85 Sodium Chloride Carbon Dioxide Anion Gap BUN Creatinine GFR Calculation BUN/Creatinine Ratio POC Glucose 95 90 Calculated Osmolality Calcium Magnesium Total Bilirubin Direct Bilirubin AST ALT Alkaline Phosphatase Total Creatine Kinase CK-MB (CK-2) CK and CKMB Interp Troponin I Total Protein Albumin Globulin Albumin/Globulin Ratio 09/15/17 09/15/17 09/15/17 18:05 19:17 19:21 WBC RBC Hgb Hct MCV MCH MCHC RDW Plt Count MPV Neut % (Auto) Lymph % (Auto) [place] % (Auto) Eos % (Auto) Baso % (Auto) Neut # (Auto) Lymph # (Auto) [place] # (Auto) Eos # (Auto) Baso # (Auto) Immature Gran % Nucleated RBC % Immature Gran # Nucleated RBCs # Immature Plt Fraction ABG pH 7.359 7.396 ABG pCO2 44.7 42.3 ABG pO2 123.0 H 78.4 L ABG HCO3 24.1 25.2 ABG Total CO2 22.8 L 23.4 ABG O2 Saturation 98.8 95.8 ABG Base Excess -0.4 0.9 Hemoglobin 10.8 L 10.6 L Hematocrit 33.3 L 32.7 L Potassium 4.1 4.2 Glucose 108 H 114 H Sodium Chloride Carbon Dioxide Anion Gap BUN Creatinine GFR Calculation BUN/Creatinine Ratio POC Glucose Calculated Osmolality Calcium Magnesium Total Bilirubin Direct Bilirubin AST ALT Alkaline Phosphatase Total Creatine Kinase 363 H D CK-MB (CK-2) 11.8 H CK and CKMB Interp 3.3 Troponin I 7.460 H D Total Protein Albumin Globulin Albumin/Globulin Ratio 09/16/17 09/16/17 09/16/17 03:50 04:00 04:03 WBC 15.6 H RBC 3.27 L Hgb 9.9 L Hct 28.9 L MCV 88.4 MCH 30 MCHC 34.3 RDW 15.9 Plt Count 167 MPV 11.4 Neut % (Auto) 82.3 H Lymph % (Auto) 8.4 L [place] % (Auto) 8.6 Eos % (Auto) 0.0 Baso % (Auto) 0.1 Neut # (Auto) 12.8 H Lymph # (Auto) 1.3 L [place] # (Auto) 1.3 H Eos # (Auto) 0.0 Baso # (Auto) 0.0 Immature Gran % 0.6 Nucleated RBC % 0.0 Immature Gran # 0.10 Nucleated RBCs # 0.00 Immature Plt Fraction 0.0 ABG pH 7.390 ABG pCO2 43.4 ABG pO2 97.4 H ABG HCO3 25.4 ABG Total CO2 23.9 ABG O2 Saturation 98.1 ABG Base Excess 1.1 Hemoglobin 10.1 L Hematocrit 31.4 L Potassium 4.4 Glucose 120 H Sodium Chloride Carbon Dioxide Anion Gap BUN Creatinine GFR Calculation BUN/Creatinine Ratio POC Glucose Calculated Osmolality Calcium Magnesium Total Bilirubin Direct Bilirubin AST ALT Alkaline Phosphatase Total Creatine Kinase 474 H D CK-MB (CK-2) 9.1 H CK and CKMB Interp 1.9 Troponin I 5.440 H D Total Protein Albumin Globulin Albumin/Globulin Ratio 09/16/17 09/16/17 05:00 11:13 WBC RBC Hgb Hct MCV MCH MCHC RDW Plt Count MPV Neut % (Auto) Lymph % (Auto) [place] % (Auto) Eos % (Auto) Baso % (Auto) Neut # (Auto) Lymph # (Auto) [place] # (Auto) Eos # (Auto) Baso # (Auto) Immature Gran % Nucleated RBC % Immature Gran # Nucleated RBCs # Immature Plt Fraction ABG pH ABG pCO2 ABG pO2 ABG HCO3 ABG Total CO2 ABG O2 Saturation ABG Base Excess Hemoglobin Hematocrit Potassium 4.4 Glucose 115 H Sodium 142 Chloride 108 H Carbon Dioxide 25 Anion Gap 13.4 BUN 17 Creatinine 1.20 GFR Calculation 97 BUN/Creatinine Ratio 14.00 POC Glucose 152 H Calculated Osmolality 285.1 Calcium 8.3 L Magnesium 2.1 Total Bilirubin < 0.39 Direct Bilirubin 0.100 AST 32 ALT 25 Alkaline Phosphatase 118 H Total Creatine Kinase CK-MB (CK-2) CK and CKMB Interp Troponin I Total Protein 6.2 L Albumin 3.2 L Globulin 3.0 Albumin/Globulin Ratio 1.0 L - EKG EKG results: interpreted by sc Quality Measures - VTE Contraindication to Pharmacological VTE Prophylaxis: High Risk of Bleeding Specialty Discharge - Follow Up or Referrals
[2017-09-16] MEDS ORDERED: cloNIDine 0.1 MG TABLET PO SCH (21:00)
[2017-09-16] MEDS: ROSUVASTATIN 10 MG TABLET PO SCH (21:14)
[2017-09-16] MEDS: ZALEPLON 5 MG CAPSULE PO PRN (21:15)
--- NOTE | 2017-09-16 22:31 | Internal Med Progress Note ---
Assessment and Plan (1) Chest pain Problem details: chest tightness Status: Resolved Current Visit: Yes (2) History of stroke Status: Chronic Current Visit: Yes (3) CAD (coronary artery disease) Status: Chronic Current Visit: Yes Qualifiers: Coronary Disease-Associated Artery/Lesion type: [place] artery [place] vs. transplanted heart: [place] heart Associated angina: without angina Qualified Code(s): I25.10 - Atherosclerotic heart disease of [place] coronary artery without angina pectoris (4) Diabetes Status: Chronic Current Visit: Yes Qualifiers: Diabetes mellitus type: type 2 Diabetes mellitus complication status: without complication Diabetes mellitus care home insulin use: without care home use Qualified Code(s): E11.9 - Type 2 diabetes mellitus without complications (5) Suspected sleep apnea Status: Chronic Current Visit: Yes (6) Anemia Status: Acute Current Visit: Yes (7) Status post coronary artery bypass graft Status: Acute Current Visit: Yes Internal Medicine - PN: Subj Interval history: Mr. Barraza is a 62 year old male with history of HTN, stroke with right sided weakness, dyslipidemia, DM, CAD/stenting last year per Dr. Antonio, OA, degenerative disc disease, recent cervical spinal surgery, who presented to ER with acute exertional chest tightness. He reports having no pain last year when coronary arterial stent placed. No history of asthma. Sep 10: He is status post cardiac cath and needs CABG. Extensive disease, including LAD. He will be scheduled next week. He denies chest pain. September 15: Patient seen in ICU post CABG and doing well. He was just awake but still on ventilator and in process of weaning off. September 16: Seen on rounds in telemetry unit and feeling better. Alert and feeling occasional soreness, but small pillow helps. Recovering post surgery very well and rapidly. Adding insulin sliding scale. Exam (Progress Note) - Constitutional Vitals: Period Temp Pulse Resp BP Sys/Lopez Pulse Ox Last 24 Hr 97.0 F-98.7 F 70-88 12-20 98-129/58-77 96-100 Exam: General appearance: no acute distress - Respiratory Respiratory exam: Present: clear to auscultation bilaterally - Cardiovascular Cardiovascular exam: Present: regular rate and rhythm - Extremities Exam Extremities exam: Absent: edema - Neurological Exam Neurological exam: Present: alert and oriented - Psychiatric Psychiatric exam: Present: normal mood - Skin Skin exam: Present: warm, dry Results - Labs CBC & BMP: 09/16/17 04:00 09/16/17 05:00 Quality Measures - VTE Contraindication to Pharmacological VTE Prophylaxis: High Risk of Bleeding Specialty Discharge - Follow Up or Referrals
[2017-09-17] MEDS: KETOROLAC 30 MG/1 ML VIAL IV SCH ×4 (04:55→21:26)
[2017-09-17 05:10] LABS: Basophils % 0.2 % (0.0-0.8); Eosinophils # 0.2 10*3/uL (0.0-0.87); Eosinophils % 1.1 % (0.00-10.9); Hematocrit 27.9 VOL% (42.0-52.0); Hemoglobin 9.5 GM/DL (14.0-18.0); Immature Granulocytes % 0.6 %; Immature Granulocytes Absolute 0.08 #; Lymphocytes # 2.4 10*3/uL (1.4-4.0); Lymphocytes % 16.9 % (21.2-54.2); Mean Corpuscular HGB Conc 34.1 GM/DL (32-36); Mean Corpuscular Hemoglobin 31 PG (27-34); Mean Corpuscular Volume 89.7 FL (87-102); Mean Platelet Volume 11.8 FL (9.6-12.0); Monocytes # 1.4 10*3/uL (0.11-0.8); Monocytes % 9.8 % (1.7-12.7); Neutrophils % 71.4 % (38.7-73.9); Platelet Count 162 T/CUMM (130-400); Red Blood Count 3.11 MC/CUMM (3.8-5.5); Red Cell Distribution Width 16.3 % (9.3-17.3)
[2017-09-17 05:50] LABS: Alanine Aminotransferase 22 U/L (16-61); Albumin 3.1 G/DL (3.4-5.0); Alkaline Phosphatase 105 U/L (45-117); Aspartate Amino Transferase 21 U/L (0-37); Bilirubin,Direct < 0.100 MG/DL (0.0-0.20); Bilirubin,Indirect 0.3 MG/DL (0.0-1.0); Bilirubin,Total < 0.39 MG/DL (0.2-1.0); Blood Urea Nitrogen 21 MG/DL (7-18); Calcium 8.1 MG/DL (8.5-10.1); Glucose 101 MG/DL (74-106); Magnesium 2.5 MG/DL (1.8-2.4); Osmolality,Calculated 283.3 MOS/KG (273-304); Potassium 4.1 MMOL/L (3.5-5.1); Sodium 141 MMOL/L (136-145); Total Protein 5.5 G/DL (6.4-8.3)
[2017-09-17] MEDS ORDERED: FUROSEMIDE 40 MG/4 ML VIAL IV ONE (06:00)
--- NOTE | 2017-09-17 06:18 | Cardiothoracic Progress Note ---
Cardiothoracic Subjective Interval history: Patient had a comfortable night. Vital signs have been stable and he is breathing comfortably. He does have generalized chest soreness. Laboratory work looks essentially within normal limits for postoperative day 2. We will gradually try to increase his activities today according to routine postoperative protocol. Overall his progress appears satisfactory. Exam (Progress Note) - Constitutional Vitals: Period Temp Pulse Resp BP Sys/Lopez Pulse Ox Last 24 Hr 97.0 F-100.2 F 70-90 12-20 98-129/58-77 95-100 Result/EKG - Labs CBC & BMP: 09/17/17 04:01 09/17/17 04:01 Labs: Laboratory Results - last 24 hr 09/14/17 09/16/17 09/16/17 03:25 05:00 11:13 WBC RBC Hgb Hct MCV MCH MCHC RDW Plt Count MPV Neut % (Auto) Lymph % (Auto) [place] % (Auto) Eos % (Auto) Baso % (Auto) Neut # (Auto) Lymph # (Auto) [place] # (Auto) Eos # (Auto) Baso # (Auto) Immature Gran % Nucleated RBC % Immature Gran # Nucleated RBCs # Immature Plt Fraction Sodium 142 Potassium 4.4 Chloride 108 H Carbon Dioxide 25 Anion Gap 13.4 BUN 17 Creatinine 1.20 GFR Calculation 97 BUN/Creatinine Ratio 14.00 Glucose 115 H POC Glucose 152 H Calculated Osmolality 285.1 Calcium 8.3 L Magnesium 2.1 Total Bilirubin < 0.39 Direct Bilirubin 0.100 Indirect Bilirubin AST 32 ALT 25 Alkaline Phosphatase 118 H Total Creatine Kinase CK-MB (CK-2) Troponin I Total Protein 6.2 L Albumin 3.2 L Globulin 3.0 Albumin/Globulin Ratio 1.0 L Crossmatch See Detail 09/16/17 09/16/17 09/17/17 15:13 21:30 00:52 WBC RBC Hgb Hct MCV MCH MCHC RDW Plt Count MPV Neut % (Auto) Lymph % (Auto) [place] % (Auto) Eos % (Auto) Baso % (Auto) Neut # (Auto) Lymph # (Auto) [place] # (Auto) Eos # (Auto) Baso # (Auto) Immature Gran % Nucleated RBC % Immature Gran # Nucleated RBCs # Immature Plt Fraction Sodium Potassium Chloride Carbon Dioxide Anion Gap BUN Creatinine GFR Calculation BUN/Creatinine Ratio Glucose POC Glucose 159 H 167 H 134 H Calculated Osmolality Calcium Magnesium Total Bilirubin Direct Bilirubin Indirect Bilirubin AST ALT Alkaline Phosphatase Total Creatine Kinase CK-MB (CK-2) Troponin I Total Protein Albumin Globulin Albumin/Globulin Ratio Crossmatch 09/17/17 09/17/17 04:01 04:01 WBC 14.0 H RBC 3.11 L Hgb 9.5 L Hct 27.9 L MCV 89.7 MCH 31 MCHC 34.1 RDW 16.3 Plt Count 162 MPV 11.8 Neut % (Auto) 71.4 Lymph % (Auto) 16.9 L [place] % (Auto) 9.8 Eos % (Auto) 1.1 Baso % (Auto) 0.2 Neut # (Auto) 10.0 H Lymph # (Auto) 2.4 [place] # (Auto) 1.4 H Eos # (Auto) 0.2 Baso # (Auto) 0.0 Immature Gran % 0.6 Nucleated RBC % 0.0 Immature Gran # 0.08 Nucleated RBCs # 0.00 Immature Plt Fraction 0.0 Sodium 141 Potassium 4.1 Chloride 105 Carbon Dioxide 27 Anion Gap 13.1 BUN 21 H Creatinine 1.10 GFR Calculation 108 BUN/Creatinine Ratio 19.00 Glucose 101 POC Glucose Calculated Osmolality 283.3 Calcium 8.1 L Magnesium 2.5 H Total Bilirubin < 0.39 Direct Bilirubin < 0.100 Indirect Bilirubin 0.3 AST 21 ALT 22 Alkaline Phosphatase 105 Total Creatine Kinase 475 H CK-MB (CK-2) 2.7 D Troponin I 1.810 H D Total Protein 5.5 L Albumin 3.1 L Globulin 2.4 Albumin/Globulin Ratio 1.2 Crossmatch Quality Measures - VTE Contraindication to Pharmacological VTE Prophylaxis: High Risk of Bleeding Specialty Discharge - Follow Up or Referrals
--- NOTE | 2017-09-17 07:49 | XRay Report ---
Portable chest Date: 09/17/2017 Clinical history: Shortness of breath Comparison: 09/16/2017 Technique: Portable AP sitting chest Findings: Stable cardiomegaly with recent median sternotomy. Right IJ CVP line is stable in position. Reduced atelectasis/edema with persistent small left pleural effusion. No evidence of pneumothorax with stable mediastinum and osseous structures. Impression: Status post median sternotomy with reduced atelectasis/infiltration with residual small left pleural effusion. PROCEDURE INTERPRETED AT [facility] Final Report Signed by: Dr. Misty Elena
[2017-09-17] MEDS: TAMSULOSIN 0.4 MG CAPSULE PO SCH (08:51)
[2017-09-17] MEDS: PHENYTOIN ER 100 MG CAPSULE PO SCH ×2 (08:51→21:25)
[2017-09-17] MEDS: CETIRIZINE 10 MG TABLET PO SCH (08:51)
[2017-09-17] MEDS: SERTRALINE 100 MG TABLET PO SCH (08:52)
[2017-09-17] MEDS: metFORMIN 500 MG TABLET PO SCH (08:52)
[2017-09-17] MEDS: CARVEDILOL 3.125 MG TABLET PO SCH (08:52)
[2017-09-17] MEDS: PANTOPRAZOLE 40 MG TABLET PO SCH (08:52)
[2017-09-17] MEDS: hydroCHLOROthiazide 25 MG TABLET PO SCH (08:52)
[2017-09-17] MEDS: FOLIC ACID 1 MG TABLET PO SCH (08:52)
[2017-09-17] MEDS: DOCUSATE SODIUM 100 MG CAPSULE PO SCH (08:53)
[2017-09-17] MEDS: sitaGLIPtin 100 MG TABLET PO SCH (08:53)
[2017-09-17] MEDS: ASPIRIN EC 81 MG TABLET PO SCH (08:53)
[2017-09-17] MEDS: FERROUS SULFATE 325 MG TABLET PO SCH (10:06)
[2017-09-17] MEDS: INSULIN REGULAR 100 UNIT/ML SUBCUT SCH ×4 (10:06→21:25)
[2017-09-17] MEDS: MELOXICAM 7.5 MG TABLET PO SCH (10:07)
[2017-09-17] MEDS: CHLORHEXIDINE 0.12% ORAL RINSE 60 ML BOTTLE SWISH/SPIT SCH ×2 (10:07→21:21)
--- NOTE | 2017-09-17 17:11 | Cardiology Progress Note ---
Demario Sherman Lesley, MARTÍN, am scribing for, and in the presence of, Houston Edmondson MD 17:11. Assessment and Plan - Time spent with patient Time spent with patient: Greater than 30 minutes (Record review, assessment, documentation) (1) Hypertension Status: Chronic Assessment and plan: SEE PLAN LISTED BELOW Current Visit: Yes (2) Seizure disorder Status: Chronic Assessment and plan: SEE PLAN LISTED BELOW Current Visit: No (3) History of stroke Status: Chronic Current Visit: Yes (4) CAD (coronary artery disease) Status: Chronic Assessment and plan: SEE PLAN LISTED BELOW Current Visit: Yes Qualifiers: Coronary Disease-Associated Artery/Lesion type: [place] artery [place] vs. transplanted heart: [place] heart Associated angina: without angina Qualified Code(s): I25.10 - Atherosclerotic heart disease of [place] coronary artery without angina pectoris (5) Diabetes Status: Chronic Assessment and plan: SEE PLAN LISTED BELOW Current Visit: Yes Qualifiers: Diabetes mellitus type: type 2 Diabetes mellitus complication status: without complication Diabetes mellitus spa consultant insulin use: without spa consultant use Qualified Code(s): E11.9 - Type 2 diabetes mellitus without complications (6) Hyperlipidemia Status: Chronic Assessment and plan: SEE PLAN LISTED BELOW Current Visit: Yes (7) Suspected sleep apnea Status: Chronic Current Visit: Yes (8) Status post coronary artery bypass graft Status: Acute Assessment and plan: SEE PLAN LISTED BELOW Current Visit: Yes Cardiology - PN: Subj Interval history: LOAN OPERATIONS SPECIALIST: Dr. Wagner Summary: Mr. Barraza is a 62 year old BM, admitted with unstable angina. Cardiac catheterization revealed severe 2 vessel disease, not amenable to PCI. PMH significant for hypertension, CVA, CAD with PCI, Dyslipidemia, BPH, DM2, seizure disorder post stroke X1, GERD, remote smoker (quit over 30 years ago). PSH cervical fusion, appendectomy, cardiac cath with PCI. Cardiac cath severe 2V disease, pLAD and diagonal, LVEF > 55%. Sleep medicine consult, patient will need outpatient polysomnography. 09/15/17 CABG with left internal mammary graft to the anterior descending coronary artery and a saphenous vein graft to the diagonal coronary artery. September 17, 2017: The following chronic conditions are being monitored CAD, Hypertension, DM2 and are currently stable. Followed for more acute conditions to include recent CABG. POD #2, he is currently being monitored on telemetry floor. The patient complains that he did not sleep well last night. Blood pressure stable, 109/66. Oxygen saturation 98% on 2L NC. EKG reveals SR rate in the 90s. I & O reviewed, no weight recorded today. Continue aspirin, beta- lissy, lipid-lowering agent. Plan to increase beta lissy today and as BP allows, will use MARY GRACE. Cardiac Rehab has been initiated. Lab data: WBC 14, Hgb 9.5, Hct 27.9, Neut 10, CK 475, CK-MB 2.7, Trop 1.810, Mag 2.5, Creatinine 1.1. ROS: Cardiovascular: Mild chest soreness but overall no chest pain, heaviness, or tightness Pulmonary: Shortness of breath is stable, improved. Denies orthopnea, PND IMPRESSION AND PLAN: CAD - POD #2, CABG X 2. Cont ASA, Crestor. Increase Coreg to 25 mg twice daily , stop clonidine HYPERTENSION -monitor on adjusted regimen. May add MARY GRACE inhibitor, if needed DYSLIPIDEMIA - continue Crestor. DM2 - Januvia and Metformin, accuchecks, monitor closely. HISTORY OF STROKE - BP well controlled, monitor closely. Continue aspirin SEIZURE DISORDER - seizure X 1 post stroke, monitor closely. SUSPECTED SLEEP APNEA - using CPAP at night. Exam (Progress Note) - Constitutional Vitals: Period Temp Pulse Resp BP Sys/Lopez Pulse Ox Last 24 Hr 97.6 F-100.2 F 75-90 18-20 98-116/58-75 91-100 Exam: General: Appears well with no apparent distress. Pleasant and cooperative. Appears comfortable. HEENT: PERRL, normocephalic, atraumatic. Mucous membranes moist. No jaundice noted. Conjunctiva moist and clear, sclerae anicteric. Neck: No JVD, no thyromegaly or lymphadenopathy noted. No carotid bruit appreciated. Cardiac: Regular rate and rhythm. No murmur rub or gallop. PMI is nondisplaced. Lungs: Essentially clear to auscultation without accessory muscle use, slight bilateral rhonchi. Oxygen in use via nasal cannula. Abdomen: Soft, bowel sounds normoactive. Nontender and nondistended. No abdominal bruit or thrill noted. No masses noted. patient reports good appetite and passing gas. Musculoskeletal: No fluid collection. Decreased range of motion is noted. Surgical dressings intact. Extremities: No clubbing, cyanosis noted. No edema noted. Upper extremity pulses 2+. Lower extremity pulses 2+. Capillary refill less than 3 seconds. Skin: Warm and dry. No unusual lesions or rashes. No skin breakdown appreciated. Surgical dressings intact to midline sternum, abdomen dressings, and right lower extremity intact. Neuro: Awake, alert and oriented 3. Moves all extremities well without hemiparesis or paralysis. No essential tremor is appreciated. Result/EKG - Labs CBC & BMP: 09/17/17 04:01 09/17/17 04:01 Lab Results: I have reviewed the past 24 hour labs Labs: Laboratory Results - last 24 hr 09/14/17 09/16/17 09/16/17 03:25 00:09 05:40 WBC RBC Hgb Hct MCV MCH MCHC RDW Plt Count MPV Neut % (Auto) Lymph % (Auto) [place] % (Auto) Eos % (Auto) Baso % (Auto) Neut # (Auto) Lymph # (Auto) [place] # (Auto) Eos # (Auto) Baso # (Auto) Immature Gran % Nucleated RBC % Immature Gran # Nucleated RBCs # Immature Plt Fraction Sodium Potassium Chloride Carbon Dioxide Anion Gap BUN Creatinine GFR Calculation BUN/Creatinine Ratio Glucose POC Glucose 132 H 123 H Calculated Osmolality Calcium Magnesium Total Bilirubin Direct Bilirubin Indirect Bilirubin AST ALT Alkaline Phosphatase Total Creatine Kinase CK-MB (CK-2) Troponin I Total Protein Albumin Globulin Albumin/Globulin Ratio Crossmatch See Detail 09/16/17 09/16/17 09/16/17 11:13 15:13 21:30 WBC RBC Hgb Hct MCV MCH MCHC RDW Plt Count MPV Neut % (Auto) Lymph % (Auto) [place] % (Auto) Eos % (Auto) Baso % (Auto) Neut # (Auto) Lymph # (Auto) [place] # (Auto) Eos # (Auto) Baso # (Auto) Immature Gran % Nucleated RBC % Immature Gran # Nucleated RBCs # Immature Plt Fraction Sodium Potassium Chloride Carbon Dioxide Anion Gap BUN Creatinine GFR Calculation BUN/Creatinine Ratio Glucose POC Glucose 152 H 159 H 167 H Calculated Osmolality Calcium Magnesium Total Bilirubin Direct Bilirubin Indirect Bilirubin AST ALT Alkaline Phosphatase Total Creatine Kinase CK-MB (CK-2) Troponin I Total Protein Albumin Globulin Albumin/Globulin Ratio Crossmatch 09/17/17 09/17/17 09/17/17 00:52 03:55 04:01 WBC 14.0 H RBC 3.11 L Hgb 9.5 L Hct 27.9 L MCV 89.7 MCH 31 MCHC 34.1 RDW 16.3 Plt Count 162 MPV 11.8 Neut % (Auto) 71.4 Lymph % (Auto) 16.9 L [place] % (Auto) 9.8 Eos % (Auto) 1.1 Baso % (Auto) 0.2 Neut # (Auto) 10.0 H Lymph # (Auto) 2.4 [place] # (Auto) 1.4 H Eos # (Auto) 0.2 Baso # (Auto) 0.0 Immature Gran % 0.6 Nucleated RBC % 0.0 Immature Gran # 0.08 Nucleated RBCs # 0.00 Immature Plt Fraction 0.0 Sodium Potassium Chloride Carbon Dioxide Anion Gap BUN Creatinine GFR Calculation BUN/Creatinine Ratio Glucose POC Glucose 134 H 130 H Calculated Osmolality Calcium Magnesium Total Bilirubin Direct Bilirubin Indirect Bilirubin AST ALT Alkaline Phosphatase Total Creatine Kinase CK-MB (CK-2) Troponin I Total Protein Albumin Globulin Albumin/Globulin Ratio Crossmatch 09/17/17 09/17/17 04:01 07:07 WBC RBC Hgb Hct MCV MCH MCHC RDW Plt Count MPV Neut % (Auto) Lymph % (Auto) [place] % (Auto) Eos % (Auto) Baso % (Auto) Neut # (Auto) Lymph # (Auto) [place] # (Auto) Eos # (Auto) Baso # (Auto) Immature Gran % Nucleated RBC % Immature Gran # Nucleated RBCs # Immature Plt Fraction Sodium 141 Potassium 4.1 Chloride 105 Carbon Dioxide 27 Anion Gap 13.1 BUN 21 H Creatinine 1.10 GFR Calculation 108 BUN/Creatinine Ratio 19.00 Glucose 101 POC Glucose 130 H Calculated Osmolality 283.3 Calcium 8.1 L Magnesium 2.5 H Total Bilirubin < 0.39 Direct Bilirubin < 0.100 Indirect Bilirubin 0.3 AST 21 ALT 22 Alkaline Phosphatase 105 Total Creatine Kinase 475 H CK-MB (CK-2) 2.7 D Troponin I 1.810 H D Total Protein 5.5 L Albumin 3.1 L Globulin 2.4 Albumin/Globulin Ratio 1.2 Crossmatch - Diagnostic Findings Procedure: Chest x-ray: report reviewed by me (reduced atelectasis, small left pleural effusion) - EKG EKG results: interpreted by me, sinus rhythm Quality Measures - VTE Contraindication to Pharmacological VTE Prophylaxis: High Risk of Bleeding Specialty Discharge - Follow Up or Referrals Delvis Sherman Attila, MD, personally performed the services described in this documentation, ascribed by Dori Hanks NP in my presence, and it is both accurate and complete .
--- NOTE | 2017-09-17 19:33 | Sleep Medicine Progress Note ---
Assessment and Plan (1) Suspected sleep apnea Status: Chronic Assessment and plan: Continue auto titration CPAP as tolerated with outpatient titration of CPAP after discharge with sleep clinic follow-up. Current Visit: Yes (2) Cerebrovascular accident Status: Chronic Current Visit: No (3) CAD (coronary artery disease) Status: Chronic Current Visit: Yes Qualifiers: Coronary Disease-Associated Artery/Lesion type: [place] artery [place] vs. transplanted heart: [place] heart Associated angina: without angina Qualified Code(s): I25.10 - Atherosclerotic heart disease of [place] coronary artery without angina pectoris (4) Diabetes Status: Chronic Current Visit: Yes Qualifiers: Diabetes mellitus type: type 2 Diabetes mellitus complication status: without complication Diabetes mellitus vermin exterminator insulin use: without vermin exterminator use Qualified Code(s): E11.9 - Type 2 diabetes mellitus without complications Sleep Medicine Subjective Interval history: Patient is recovering from bypass surgery. He did try to sleep with BiPAP last night but poorly tolerated. He stayed on it almost 4 hours and did have better control of his sleep apnea, having an AHI of 4.7. His average device pressure was only about 8 cm. This is better than what he was doing preoperatively. He will continue to try to use his CPAP device but we need to see him back in the sleep clinic after discharge for formal titration of CPAP therapy. Exam (Progress Note) - Constitutional Vitals: Period Temp Pulse Resp BP Sys/Lopez Pulse Ox Last 24 Hr 97.4 F-100.2 F 79-90 17-20 94-116/56-75 91-100 Exam: He is alert and responsive in no acute distress. Results - Labs CBC & BMP: 09/17/17 04:01 09/17/17 04:01 Lab Results: I have reviewed the past 24 hour labs Specialty Discharge - Follow Up or Referrals
[2017-09-17] MEDS ORDERED: CARVEDILOL 12.5 MG TABLET PO SCH (21:00)
[2017-09-17] MEDS: CARVEDILOL 25 MG TABLET PO SCH (21:25)
[2017-09-17] MEDS: ROSUVASTATIN 10 MG TABLET PO SCH (21:25)
[2017-09-17] MEDS: ZALEPLON 5 MG CAPSULE PO PRN (21:25)
--- NOTE | 2017-09-17 22:34 | Internal Med Progress Note ---
Assessment and Plan (1) Chest pain Problem details: chest tightness Status: Resolved Current Visit: Yes (2) History of stroke Status: Chronic Current Visit: Yes (3) CAD (coronary artery disease) Status: Chronic Current Visit: Yes Qualifiers: Coronary Disease-Associated Artery/Lesion type: [place] artery [place] vs. transplanted heart: [place] heart Associated angina: without angina Qualified Code(s): I25.10 - Atherosclerotic heart disease of [place] coronary artery without angina pectoris (4) Diabetes Status: Chronic Current Visit: Yes Qualifiers: Diabetes mellitus type: type 2 Diabetes mellitus complication status: without complication Diabetes mellitus half-way insulin use: without half-way use Qualified Code(s): E11.9 - Type 2 diabetes mellitus without complications (5) Suspected sleep apnea Status: Chronic Current Visit: Yes (6) Anemia Status: Acute Current Visit: Yes (7) Status post coronary artery bypass graft Status: Acute Current Visit: Yes Internal Medicine - PN: Subj Interval history: Mr. Barraza is a 62 year old male with history of HTN, stroke with right sided weakness, dyslipidemia, DM, CAD/stenting last year per Dr. Antonio, OA, degenerative disc disease, recent cervical spinal surgery, who presented to ER with acute exertional chest tightness. He reports having no pain last year when coronary arterial stent placed. No history of asthma. Sep 10: He is status post cardiac cath and needs CABG. Extensive disease, including LAD. He will be scheduled next week. He denies chest pain. September 15: Patient seen in ICU post CABG and doing well. He was just awake but still on ventilator and in process of weaning off. September 16: Seen on rounds in telemetry unit and feeling better. Alert and feeling occasional soreness, but small pillow helps. Recovering post surgery very well and rapidly. Adding insulin sliding scale. September 17: Continues to improve and moved around today. Exam (Progress Note) - Constitutional Vitals: Period Temp Pulse Resp BP Sys/Lopez Pulse Ox Last 24 Hr 97.4 F-100.2 F 79-90 17-20 94-116/56-75 91-100 Exam: General appearance: no acute distress - Respiratory Respiratory exam: Present: clear to auscultation bilaterally - Cardiovascular Cardiovascular exam: Present: regular rate and rhythm - Extremities Exam Extremities exam: Absent: edema - Neurological Exam Neurological exam: Present: alert and oriented - Psychiatric Psychiatric exam: Present: normal mood - Skin Skin exam: Present: warm, dry Results - Labs CBC & BMP: 09/17/17 04:01 09/17/17 04:01 Quality Measures - VTE Contraindication to Pharmacological VTE Prophylaxis: High Risk of Bleeding Specialty Discharge - Follow Up or Referrals
[2017-09-18] MEDS: ZALEPLON 5 MG CAPSULE PO PRN ×2 (01:58→22:28)
[2017-09-18] MEDS: KETOROLAC 30 MG/1 ML VIAL IV SCH ×4 (03:49→22:29)
[2017-09-18 05:53] LABS: Basophils % 0.2 % (0.0-0.8); Eosinophils # 0.3 10*3/uL (0.0-0.87); Eosinophils % 2.2 % (0.00-10.9); Hematocrit 25.7 VOL% (42.0-52.0); Hemoglobin 8.7 GM/DL (14.0-18.0); Immature Granulocytes % 0.6 %; Immature Granulocytes Absolute 0.07 #; Lymphocytes # 1.7 10*3/uL (1.4-4.0); Lymphocytes % 15.5 % (21.2-54.2); Mean Corpuscular HGB Conc 33.9 GM/DL (32-36); Mean Corpuscular Hemoglobin 31 PG (27-34); Mean Corpuscular Volume 90.2 FL (87-102); Mean Platelet Volume 12.1 FL (9.6-12.0); Monocytes # 1.2 10*3/uL (0.11-0.8); Monocytes % 10.5 % (1.7-12.7); Platelet Count 147 T/CUMM (130-400); Red Blood Count 2.85 MC/CUMM (3.8-5.5); Red Cell Distribution Width 15.9 % (9.3-17.3); White Blood Count 11.2 T/CUMM (4-12)
[2017-09-18 06:37] LABS: Alanine Aminotransferase 19 U/L (16-61); Albumin 2.7 G/DL (3.4-5.0); Alkaline Phosphatase 91 U/L (45-117); Aspartate Amino Transferase 16 U/L (0-37); Bilirubin,Direct < 0.100 MG/DL (0.0-0.20); Bilirubin,Indirect 0.3 MG/DL (0.0-1.0); Bilirubin,Total < 0.39 MG/DL (0.2-1.0); Blood Urea Nitrogen 21 MG/DL (7-18); Calcium 7.6 MG/DL (8.5-10.1); Glucose 99 MG/DL (74-106); Magnesium 2.3 MG/DL (1.8-2.4); Osmolality,Calculated 281.4 MOS/KG (273-304); Potassium 3.8 MMOL/L (3.5-5.1); Sodium 140 MMOL/L (136-145); Total Protein 5.1 G/DL (6.4-8.3)
--- NOTE | 2017-09-18 08:10 | XRay Report ---
Portable chest Date: 09/18/2017 Clinical history: Shortness of breath Comparison: 09/17/2017 Technique: Portable AP sitting chest Findings: Stable cardiomegaly patient with recent median sternotomy. Stable right IJ CVP line. Reduced atelectasis/edema at the lung bases with residual small left pleural effusion. No pneumothorax. The mediastinum and osseous structures are stable in appearance. Impression: Recent median sternotomy with reduced atelectasis/edema at the lung bases with residual small left pleural effusion. PROCEDURE INTERPRETED AT [facility] DEPARTMENT OF RADIOLOGY Final Report Signed by: Dr. Misty Elena
--- NOTE | 2017-09-18 10:01 | Anesthesia Post-Op ---
Anesthesia Post OP - Post Ansesthetic Evaluation Patient seen in post op: Yes Resp: within normal limits CV: within normal limits Mental: within normal limits Temp: within normal limits [id number]: within normal limits Nausea and Vomiting: within normal limits Pain: within normal limits
[2017-09-18] MEDS: CARVEDILOL 25 MG TABLET PO SCH ×2 (10:10→22:28)
[2017-09-18] MEDS: SERTRALINE 100 MG TABLET PO SCH (10:10)
[2017-09-18] MEDS: sitaGLIPtin 100 MG TABLET PO SCH (10:10)
[2017-09-18] MEDS: PHENYTOIN ER 100 MG CAPSULE PO SCH ×2 (10:10→22:28)
[2017-09-18] MEDS: ASPIRIN EC 81 MG TABLET PO SCH (10:11)
[2017-09-18] MEDS: FOLIC ACID 1 MG TABLET PO SCH (10:11)
[2017-09-18] MEDS: DOCUSATE SODIUM 100 MG CAPSULE PO SCH (10:11)
[2017-09-18] MEDS: TAMSULOSIN 0.4 MG CAPSULE PO SCH (10:11)
[2017-09-18] MEDS: PANTOPRAZOLE 40 MG TABLET PO SCH (10:11)
[2017-09-18] MEDS: CETIRIZINE 10 MG TABLET PO SCH (10:11)
[2017-09-18] MEDS: FERROUS SULFATE 325 MG TABLET PO SCH (10:11)
[2017-09-18] MEDS: hydroCHLOROthiazide 25 MG TABLET PO SCH (10:11)
[2017-09-18] MEDS: metFORMIN 500 MG TABLET PO SCH (10:11)
[2017-09-18] MEDS: MELOXICAM 7.5 MG TABLET PO SCH (10:11)
[2017-09-18] MEDS: INSULIN REGULAR 100 UNIT/ML SUBCUT SCH ×4 (10:11→22:29)
[2017-09-18] MEDS: CHLORHEXIDINE 0.12% ORAL RINSE 60 ML BOTTLE SWISH/SPIT SCH ×2 (10:12→22:29)
--- NOTE | 2017-09-18 12:56 | Sleep Medicine Progress Note ---
Assessment and Plan (1) Suspected sleep apnea Status: Chronic Assessment and plan: Continue present therapy. Current Visit: Yes (2) Cerebrovascular accident Status: Chronic Current Visit: No (3) CAD (coronary artery disease) Status: Chronic Current Visit: Yes Qualifiers: Coronary Disease-Associated Artery/Lesion type: [place] artery [place] vs. transplanted heart: [place] heart Associated angina: without angina Qualified Code(s): I25.10 - Atherosclerotic heart disease of [place] coronary artery without angina pectoris (4) Diabetes Status: Chronic Current Visit: Yes Qualifiers: Diabetes mellitus type: type 2 Diabetes mellitus complication status: without complication Diabetes mellitus fdc insulin use: without terminal worker use Qualified Code(s): E11.9 - Type 2 diabetes mellitus without complications Sleep Medicine Subjective Interval history: Patient is improving with usage of CPAP. He spent over 5 hours last night on CPAP. His average device pressure was 7 cm and his control is better, having an AHI of 6. He looks much better today and seems to be improving. Exam (Progress Note) - Constitutional Vitals: Period Temp Pulse Resp BP Sys/Lopez Pulse Ox Last 24 Hr 97.4 F-99.3 F 73-92 17-20 90-107/56-68 90-98 Results - Labs CBC & BMP: 09/18/17 04:13 09/18/17 04:13 Lab Results: I have reviewed the past 24 hour labs Specialty Discharge - Follow Up or Referrals
--- NOTE | 2017-09-18 13:40 | Cardiology Progress Note ---
Demario Sherman Lesley, MARTÍN, am scribing for, and in the presence of, Houston Edmondson MD 13:40. Assessment and Plan - Time spent with patient Time spent with patient: Greater than 30 minutes (Record review, assessment, documented) (1) Hypertension Status: Chronic Assessment and plan: SEE PLAN LISTED BELOW Current Visit: Yes (2) Seizure disorder Status: Chronic Assessment and plan: SEE PLAN LISTED BELOW Current Visit: No (3) History of stroke Status: Chronic Current Visit: Yes (4) CAD (coronary artery disease) Status: Chronic Assessment and plan: SEE PLAN LISTED BELOW Current Visit: Yes Qualifiers: Coronary Disease-Associated Artery/Lesion type: [place] artery [place] vs. transplanted heart: [place] heart Associated angina: without angina Qualified Code(s): I25.10 - Atherosclerotic heart disease of [place] coronary artery without angina pectoris (5) Diabetes Status: Chronic Assessment and plan: SEE PLAN LISTED BELOW Current Visit: Yes Qualifiers: Diabetes mellitus type: type 2 Diabetes mellitus complication status: without complication Diabetes mellitus custodial insulin use: without intermediate card tender use Qualified Code(s): E11.9 - Type 2 diabetes mellitus without complications (6) Hyperlipidemia Status: Chronic Assessment and plan: SEE PLAN LISTED BELOW Current Visit: Yes (7) Suspected sleep apnea Status: Chronic Current Visit: Yes (8) Status post coronary artery bypass graft Status: Acute Assessment and plan: SEE PLAN LISTED BELOW Current Visit: Yes Cardiology - PN: Subj Interval history: 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 Wagner Summary: Mr. Barraza is a 62 year old BM, admitted with unstable angina. Cardiac catheterization revealed severe 2 vessel disease, not amenable to PCI. PMH significant for hypertension, CVA, CAD with PCI, Dyslipidemia, BPH, DM2, seizure disorder post stroke X1, GERD, remote smoker (quit over 30 years ago). PSH cervical fusion, appendectomy, cardiac cath with PCI. Cardiac cath severe 2V disease, pLAD and diagonal, LVEF > 55%. Sleep medicine consult, patient will need outpatient polysomnography. 09/15/17 CABG with left internal mammary graft to the anterior descending coronary artery and a saphenous vein graft to the diagonal coronary artery. September 18, 2017: The following chronic conditions are being monitored CAD, Hypertension, DM2 and are currently stable. Followed for more acute conditions to include recent CABG. POD #3, he is currently being monitored on telemetry floor. The patient did well through the night, he was seen ambulating in the unit with PT today. Cane to assist. Blood pressure stable, 92/58. Oxygen saturation 96% on 2L NC. EKG reveals SR rate in the 90s. I & O reviewed, add daily weights. Chest xray reveals reduced atelectesis and small left pleural effusion. Continue aspirin, beta-lissy, lipid-lowering agent. Plan to increase beta lissy today and as BP allows, will use MARY GRACE. Cardiac Rehab has been initiated. Lab data: WBC 11.2, hemoglobin 8 point, hematocrit 26, potassium 3.8, creatinine 1.2, BUN 21, magnesium 2.3, troponin continues to decrease at 0.910. ROS: Cardiovascular: Mild chest soreness but overall no chest pain, heaviness, or tightness Pulmonary: Shortness of breath is stable, improved. Denies orthopnea, PND IMPRESSION AND PLAN: CAD - s/p CABG X 2. Cont ASA, Crestor. Increased Coreg to 25 mg twice daily HYPERTENSION -monitor on adjusted regimen. May add MARY GRACE inhibitor, if needed DYSLIPIDEMIA - continue Crestor. DM2 - Januvia and Metformin, accuchecks, monitor closely. HISTORY OF STROKE - BP well controlled, monitor closely. Continue aspirin SEIZURE DISORDER - seizure X 1 post stroke, monitor closely. NAOMIE - using CPAP at night. Exam (Progress Note) - Constitutional Vitals: Period Temp Pulse Resp BP Sys/Lopez Pulse Ox Last 24 Hr 97.4 F-99.3 F 77-92 17-20 90-106/56-68 92-100 Exam: General: Appears well with no apparent distress. Pleasant and cooperative. Appears comfortable. HEENT: PERRL, normocephalic, atraumatic. Mucous membranes moist. No jaundice noted. Conjunctiva moist and clear, sclerae anicteric. Neck: No JVD, no thyromegaly or lymphadenopathy noted. No carotid bruit appreciated. Cardiac: Regular rate and rhythm. No murmur rub or gallop. PMI is nondisplaced. Lungs: Essentially clear to auscultation without accessory muscle use, slight bilateral rhonchi. Oxygen in use via nasal cannula. Abdomen: Soft, bowel sounds normoactive. Nontender and nondistended. No abdominal bruit or thrill noted. No masses noted. patient reports good appetite and passing gas. Musculoskeletal: No fluid collection. Decreased range of motion is noted. Surgical dressings intact. Extremities: No clubbing, cyanosis noted. No edema noted. Upper extremity pulses 2+. Lower extremity pulses 2+. Capillary refill less than 3 seconds. Skin: Warm and dry. No unusual lesions or rashes. No skin breakdown appreciated. Surgical dressings intact to midline sternum, abdomen dressings, and right lower extremity intact. Neuro: Awake, alert and oriented 3. Moves all extremities well without hemiparesis or paralysis. No essential tremor is appreciated. Result/EKG - Labs CBC & BMP: 09/18/17 04:13 09/18/17 04:13 Lab Results: I have reviewed the past 24 hour labs Labs: Laboratory Results - last 24 hr 09/17/17 09/17/17 09/17/17 11:34 15:16 19:14 WBC RBC Hgb Hct MCV MCH MCHC RDW Plt Count MPV Neut % (Auto) Lymph % (Auto) Stewart % (Auto) Eos % (Auto) Baso % (Auto) Neut # (Auto) Lymph # (Auto) Stewart # (Auto) Eos # (Auto) Baso # (Auto) Immature Gran % Nucleated RBC % Immature Gran # Nucleated RBCs # Immature Plt Fraction Sodium Potassium Chloride Carbon Dioxide Anion Gap BUN Creatinine GFR Calculation BUN/Creatinine Ratio Glucose POC Glucose 125 H 136 H 219 H Calculated Osmolality Calcium Magnesium Total Bilirubin Direct Bilirubin Indirect Bilirubin AST ALT Alkaline Phosphatase Total Creatine Kinase CK-MB (CK-2) Troponin I Total Protein Albumin Globulin Albumin/Globulin Ratio 09/17/17 09/18/17 09/18/17 22:56 04:13 04:13 WBC 11.2 RBC 2.85 L Hgb 8.7 L Hct 25.7 L MCV 90.2 MCH 31 MCHC 33.9 RDW 15.9 Plt Count 147 MPV 12.1 H Neut % (Auto) 71.0 Lymph % (Auto) 15.5 L Stewart % (Auto) 10.5 Eos % (Auto) 2.2 Baso % (Auto) 0.2 Neut # (Auto) 8.0 H Lymph # (Auto) 1.7 Stewart # (Auto) 1.2 H Eos # (Auto) 0.3 Baso # (Auto) 0.0 Immature Gran % 0.6 Nucleated RBC % 0.0 Immature Gran # 0.07 Nucleated RBCs # 0.00 Immature Plt Fraction 0.0 Sodium 140 Potassium 3.8 Chloride 104 Carbon Dioxide 27 Anion Gap 12.8 BUN 21 H Creatinine 1.20 GFR Calculation 97 BUN/Creatinine Ratio 17.00 Glucose 99 POC Glucose 113 H Calculated Osmolality 281.4 Calcium 7.6 L Magnesium 2.3 Total Bilirubin < 0.39 Direct Bilirubin < 0.100 Indirect Bilirubin 0.3 AST 16 ALT 19 Alkaline Phosphatase 91 Total Creatine Kinase 280 D CK-MB (CK-2) 1.2 Troponin I 0.910 H D Total Protein 5.1 L Albumin 2.7 L Globulin 2.4 Albumin/Globulin Ratio 1.1 09/18/17 09/18/17 04:54 07:49 WBC RBC Hgb Hct MCV MCH MCHC RDW Plt Count MPV Neut % (Auto) Lymph % (Auto) Stewart % (Auto) Eos % (Auto) Baso % (Auto) Neut # (Auto) Lymph # (Auto) Stewart # (Auto) Eos # (Auto) Baso # (Auto) Immature Gran % Nucleated RBC % Immature Gran # Nucleated RBCs # Immature Plt Fraction Sodium Potassium Chloride Carbon Dioxide Anion Gap BUN Creatinine GFR Calculation BUN/Creatinine Ratio Glucose POC Glucose 168 H 156 H Calculated Osmolality Calcium Magnesium Total Bilirubin Direct Bilirubin Indirect Bilirubin AST ALT Alkaline Phosphatase Total Creatine Kinase CK-MB (CK-2) Troponin I Total Protein Albumin Globulin Albumin/Globulin Ratio - Diagnostic Findings Procedure: Chest x-ray: report reviewed by me - EKG EKG results: interpreted by me, sinus rhythm Quality Measures - VTE Contraindication to Pharmacological VTE Prophylaxis: High Risk of Bleeding Specialty Discharge - Follow Up or Referrals Delvis Sherman Attila, MD, personally performed the services described in this documentation, ascribed by Dori Hanks NP in my presence, and it is both accurate and complete 340 .
[2017-09-18] MEDS: ROSUVASTATIN 10 MG TABLET PO SCH (22:28)
--- NOTE | 2017-09-18 23:22 | Internal Med Progress Note ---
Assessment and Plan (1) History of stroke Status: Chronic (2) CAD (coronary artery disease) Status: Chronic Qualifiers: Coronary Disease-Associated Artery/Lesion type: [place] artery [place] vs. transplanted heart: [place] heart Associated angina: without angina Qualified Code(s): I25.10 - Atherosclerotic heart disease of [place] coronary artery without angina pectoris (3) Diabetes Status: Chronic Qualifiers: Diabetes mellitus type: type 2 Diabetes mellitus complication status: without complication Diabetes mellitus general production manager insulin use: without general production manager use Qualified Code(s): E11.9 - Type 2 diabetes mellitus without complications (4) Suspected sleep apnea Status: Chronic (5) Anemia Problem details: anemia of chronic disease and acute post-operative Status: Acute (6) Status post coronary artery bypass graft Status: Acute Internal Medicine - PN: Subj Interval history: Mr. Barraza is a 62 year old male with history of HTN, stroke with right sided weakness, dyslipidemia, DM, CAD/stenting last year per Dr. Antonio, OA, degenerative disc disease, recent cervical spinal surgery, who presented to ER with acute exertional chest tightness. He reports having no pain last year when coronary arterial stent placed. No history of asthma. Sep 10: He is status post cardiac cath and needs CABG. Extensive disease, including LAD. He will be scheduled next week. He denies chest pain. September 15: Patient seen in ICU post CABG and doing well. He was just awake but still on ventilator and in process of weaning off. September 16: Seen on rounds in telemetry unit and feeling better. Alert and feeling occasional soreness, but small pillow helps. Recovering post surgery very well and rapidly. Adding insulin sliding scale. September 17: Continues to improve and moved around today. September 18: He has steadily improved and sitting up in chair at the time seen. Ready for discharge soon and will follow cardiopulmonary rehab outpatient. He is doing very well post-op. Will follow up with Dr. Deutsch for overnight sleep study. Exam (Progress Note) - Constitutional Vitals: Period Temp Pulse Resp BP Sys/Lopez Pulse Ox Last 24 Hr 97.4 F-99.3 F 73-83 18-20 90-107/56-63 90-97 Exam: General appearance: no acute distress - Respiratory Respiratory exam: Present: clear to auscultation bilaterally - Cardiovascular Cardiovascular exam: Present: regular rate and rhythm - Extremities Exam Extremities exam: Absent: edema - Neurological Exam Neurological exam: Present: alert and oriented - Psychiatric Psychiatric exam: Present: normal mood - Skin Skin exam: Present: warm, dry Results - Labs CBC & BMP: 09/18/17 04:13 09/18/17 04:13 Quality Measures - VTE Contraindication to Pharmacological VTE Prophylaxis: High Risk of Bleeding Specialty Discharge - Follow Up or Referrals Follow up with: Taqueria Espino MD [Physician] - 10/14/17 10:00 am Marcie Alvarado DO [Primary Care Provider] - (2-4 week follow up) Preet Wagner MD [Physician] - 10/20/17 10:00 am (EKG, CBC, BMP with mag, prior to appointment)
[2017-09-19] MEDS: KETOROLAC 30 MG/1 ML VIAL IV SCH (05:23)
[2017-09-19] MEDS: INSULIN REGULAR 100 UNIT/ML SUBCUT SCH ×2 (09:19→12:53)
--- NOTE | 2017-09-19 09:20 | Discharge Summary ---
Hospital Course - Hospital Course Hospital Course: History of present illness: Patient is a 62-year-old man who presented for evaluation of chest discomfort. Cardiac catheterization was performed which demonstrated critical disease of both anterior descending and a large diagonal coronary artery. These were not amenable to coronary angioplasty and the patient was referred for bypass surgery. Past medical history review of systems social history and family history are documented in his admission note. Hospital course: Patient was taken to surgery were two-vessel grafting was performed of the left internal mammary graft to the anterior descending coronary artery saphenous vein graft to the diagonal coronary artery. Patient tolerated the procedure well and his postoperative course was uncomplicated. He was discharged home on the fourth postoperative day with instructions to return for follow-up in 1 month. Discharge medications are listed below. Specialty Discharge - Follow Up or Referrals Discharge Plan - Discharge Medications No Action cloNIDine TAB [Catapres Tab] 0.1 mg PO BEDTIME Phenytoin ER Cap [Dilantin Cap] 200 mg PO BID Meloxicam [Mobic] 7.5 tablet PO DAILY Sertraline HCl 100 mg PO DAILY Furosemide Tab [Lasix Tab] 20 mg PO DAILY Potassium Chloride 20 meq PO DAILY Aspirin [Ecotrin] 81 mg PO DAILY Folic Acid Tab 1 mg PO DAILY Rosuvastatin [Crestor] 10 mg PO BEDTIME Pantoprazole Tab [Protonix Tab] 40 mg PO DAILY Clopidogrel [Plavix] 75 mg PO DAILY Cetirizine Tab [ZyrTEC Tab] 10 mg PO DAILY Fluticasone 50 Mcg Nasal Jesse [Flonase Nasal Jesse] 1 spray BOTH NARES DAILY PRN PRN Reason: Sinus Symptoms Saxagliptin HCl/Metformin HCl [Kombiglyze Xr 5-500 mg Tablet] 1 each PO DAILY Linaclotide [Linzess] 145 mcg PO DAILY PRN PRN Reason: Constipation predniSONE TAB [PredniSONE] 5 mg PO DAILY Olmesartan/Amlodipin/Hcthiazid [Tribenzor 40-5-25 mg Tablet] 1 each PO DAILY Ondansetron [Ondansetron Odt] 4 mg PO Q4H PRN #10 tab.rapdis PRN Reason: Nausea Tamsulosin [Flomax] 0.4 mg PO DAILY - Follow Up or Referral - Forms/Instructions Instructions: Heart Healthy Diet (GEN), Coronary Artery Bypass Graft, Compressor Assembler (GEN), Sternal Precautions, Compressor Assembler (GEN) Exam - Constitutional Vitals: Period Temp Pulse Resp BP Sys/Lopez Pulse Ox Last 24 Hr 97.4 F-99.3 F 73-80 17-20 90-107/56-63 90-99 Discharge Results Procedures and tests throughout hospitalization: Pending Orders 09/14/17 03:25 Fresh Frozen Plasma Routine Red Blood Cells Leuko Red IN AM Single Donor Platelets Routine Type and Screen Routine 09/20/17 04:00 XR chest 2V IN AM Bilirubin Profile Adult IN AM Comp Blood Count Auto Diff IN AM Comprehensive Metabolic Panel IN AM Hepatic (Liver) Panel IN AM Magnesium IN AM Troponin,CKMB & Ck Total IN AM 09/21/17 04:00 XR chest 2V IN AM Bilirubin Profile Adult IN AM Comp Blood Count Auto Diff IN AM Comprehensive Metabolic Panel IN AM Hepatic (Liver) Panel IN AM Magnesium IN AM Troponin,CKMB & Ck Total IN AM Labs on day of discharge: Labs from last 24 hours 09/19/17 09/18/17 09/18/17 07:24 19:20 14:44 POC Glucose 105 135 H 143 H 09/18/17 11:34 POC Glucose 108 H DS: Provider Date of admission: 09/09/17 12:21 Primary care physician: Marcie Alvarado DO Attending physician on admission: Marcie Alvarado DO Consults: 09/16/17 09:01 Consult to Cardiac Rehabilitation [CONS] Routine Reason for Cardiac Rehabilitation: Other Consult Comment: Post CABG/heart surgery Consult to Diabetes [facility], Educator [CONS] Routine Reason for Tawer: Diabetes Education Initial Insulin Education Consult Comment: insulin education Consult to Dietitian [CONS] Routine Reason for Dietitian: Dietary Consult Consult Comment: Cardiac, low salt, low cholesterol diet Consult to Physical Therapy [CONS] Routine Reason for Physical Therapy: Other Consult Comment: CV Rehab 09/17/17 23:27 Consult to Dietitian [CONS] Routine Reason for Dietitian: Diet Recommendations Consult Comment: protein requirements (status post CABG) 09/19/17 08:35 Consult to Case Mgmt/Social Srvs [CONS] Routine Reason for Case Mgmt/Social Srvs: Discharge Planning Home Health Consult Comment: homehealth take richy out on 09/29/17 Discharging clinician: Taqueria Espino MD Expected date of discharge: 09/19/17
[2017-09-19] MEDS: PHENYTOIN ER 100 MG CAPSULE PO SCH (09:22)
[2017-09-19] MEDS: MELOXICAM 7.5 MG TABLET PO SCH (09:22)
[2017-09-19] MEDS: FERROUS SULFATE 325 MG TABLET PO SCH (09:22)
[2017-09-19] MEDS: CARVEDILOL 25 MG TABLET PO SCH (09:23)
[2017-09-19] MEDS: TAMSULOSIN 0.4 MG CAPSULE PO SCH (09:23)
[2017-09-19] MEDS: SERTRALINE 100 MG TABLET PO SCH (09:23)
[2017-09-19] MEDS: metFORMIN 500 MG TABLET PO SCH (09:23)
[2017-09-19] MEDS: FOLIC ACID 1 MG TABLET PO SCH (09:24)
[2017-09-19] MEDS: hydroCHLOROthiazide 25 MG TABLET PO SCH (09:24)
[2017-09-19] MEDS: DOCUSATE SODIUM 100 MG CAPSULE PO SCH (09:24)
[2017-09-19] MEDS: CETIRIZINE 10 MG TABLET PO SCH (09:24)
[2017-09-19] MEDS: PANTOPRAZOLE 40 MG TABLET PO SCH (09:24)
[2017-09-19] MEDS: ASPIRIN EC 81 MG TABLET PO SCH (09:24)
[2017-09-19] MEDS: sitaGLIPtin 100 MG TABLET PO SCH (09:24)
--- NOTE | 2017-09-19 09:25 | Discharge Summary ---
Hospital Course - Hospital Course Hospital Course: History of present illness: Patient is a 62-year-old man who presented for evaluation of chest discomfort. Cardiac catheterization was performed which demonstrated critical disease of both anterior descending and a large diagonal coronary artery. These were not amenable to coronary angioplasty and the patient was referred for bypass surgery. Past medical history review of systems social history and family history are documented in his admission note. Hospital course: Patient was taken to surgery were two-vessel grafting was performed of the left internal mammary graft to the anterior descending coronary artery saphenous vein graft to the diagonal coronary artery. Patient tolerated the procedure well and his postoperative course was uncomplicated. He was discharged home on the fourth postoperative day with instructions to return for follow-up in 1 month. Discharge medications are listed below. Specialty Discharge - Follow Up or Referrals Follow up with: Taqueria Espino MD [Physician] - 1 Month Discharge Plan - Discharge Data Disposition: Disch To Home/Self Care Condition at Discharge: Stable Discharge Diet: heart healthy Activity: resume usual activities as tolerated Hygiene: no restrictions Weight Bearing at Discharge: full weight bearing Driving: not for (2 weeks) - Discharge Medications Continue cloNIDine TAB [Catapres Tab] 0.1 mg PO BEDTIME Phenytoin ER Cap [Dilantin Cap] 200 mg PO BID Meloxicam [Mobic] 7.5 tablet PO DAILY Sertraline HCl 100 mg PO DAILY Furosemide Tab [Lasix Tab] 20 mg PO DAILY Potassium Chloride 20 meq PO DAILY Aspirin [Ecotrin] 81 mg PO DAILY Folic Acid Tab 1 mg PO DAILY Rosuvastatin [Crestor] 10 mg PO BEDTIME Pantoprazole Tab [Protonix Tab] 40 mg PO DAILY Clopidogrel [Plavix] 75 mg PO DAILY Cetirizine Tab [ZyrTEC Tab] 10 mg PO DAILY Fluticasone 50 Mcg Nasal [place] [Flonase Nasal [place]] 1 spray BOTH NARES DAILY PRN PRN Reason: Sinus Symptoms Saxagliptin HCl/Metformin HCl [Kombiglyze Xr 5-500 mg Tablet] 1 each PO DAILY Linaclotide [Linzess] 145 mcg PO DAILY PRN PRN Reason: Constipation predniSONE TAB [PredniSONE] 5 mg PO DAILY Olmesartan/Amlodipin/Hcthiazid [Tribenzor 40-5-25 mg Tablet] 1 each PO DAILY Ondansetron [Ondansetron Odt] 4 mg PO Q4H PRN #10 tab.rapdis PRN Reason: Nausea Tamsulosin [Flomax] 0.4 mg PO DAILY - Follow Up or Referral - Forms/Instructions Instructions: Heart Healthy Diet (GEN), Coronary Artery Bypass Graft, Forms Builder (GEN), Sternal Precautions, Forms Builder (GEN) Exam - Constitutional Vitals: Period Temp Pulse Resp BP Sys/Lopez Pulse Ox Last 24 Hr 97.4 F-99.3 F 73-80 17-20 90-107/56-63 90-99 Discharge Results Procedures and tests throughout hospitalization: Pending Orders 09/14/17 03:25 Fresh Frozen Plasma Routine Red Blood Cells Leuko Red IN AM Single Donor Platelets Routine Type and Screen Routine 09/20/17 04:00 XR chest 2V IN AM Bilirubin Profile Adult IN AM Comp Blood Count Auto Diff IN AM Comprehensive Metabolic Panel IN AM Hepatic (Liver) Panel IN AM Magnesium IN AM Troponin,CKMB & Ck Total IN AM 09/21/17 04:00 XR chest 2V IN AM Bilirubin Profile Adult IN AM Comp Blood Count Auto Diff IN AM Comprehensive Metabolic Panel IN AM Hepatic (Liver) Panel IN AM Magnesium IN AM Troponin,CKMB & Ck Total IN AM Labs on day of discharge: Labs from last 24 hours 09/19/17 09/18/17 09/18/17 07:24 19:20 14:44 POC Glucose 105 135 H 143 H 09/18/17 11:34 POC Glucose 108 H DS: Provider Date of admission: 09/09/17 12:21 Primary care physician: Marcie Alvarado DO Attending physician on admission: Marcie Alvarado DO Consults: 09/16/17 09:01 Consult to Cardiac Rehabilitation [CONS] Routine Reason for Cardiac Rehabilitation: Other Consult Comment: Post CABG/heart surgery Consult to [facility], Educator [CONS] Routine Reason for Process Improvement Analyst: Diabetes Education Initial Insulin Education Consult Comment: insulin education Consult to Dietitian [CONS] Routine Reason for Dietitian: Dietary Consult Consult Comment: Cardiac, low salt, low cholesterol diet Consult to Physical Therapy [CONS] Routine Reason for Physical Therapy: Other Consult Comment: CV Rehab 09/17/17 23:27 Consult to Dietitian [CONS] Routine Reason for Dietitian: Diet Recommendations Consult Comment: protein requirements (status post CABG) 09/19/17 08:35 Consult to Case Mgmt/Social Srvs [CONS] Routine Reason for Case Mgmt/Social Srvs: Discharge Planning Home Health Consult Comment: homehealth take richy out on 09/29/17 Discharging clinician: Taqueria Espino MD
--- NOTE | 2017-09-19 10:20 | Order Completion Report ---
See report scanned to EMR
--- NOTE | 2017-09-19 11:10 | Sleep Medicine Progress Note ---
Assessment and Plan (1) Suspected sleep apnea Status: Chronic Assessment and plan: Patient will be discharged without CPAP and will be scheduled for follow-up after formal sleep study evaluation. Current Visit: Yes (2) Cerebrovascular accident Status: Chronic Current Visit: No (3) CAD (coronary artery disease) Status: Chronic Current Visit: Yes Qualifiers: Coronary Disease-Associated Artery/Lesion type: [place] artery [place] vs. transplanted heart: [place] heart Associated angina: without angina Qualified Code(s): I25.10 - Atherosclerotic heart disease of [place] coronary artery without angina pectoris (4) Diabetes Status: Chronic Current Visit: Yes Qualifiers: Diabetes mellitus type: type 2 Diabetes mellitus complication status: without complication Diabetes mellitus skilled nursing insulin use: without skilled nursing use Qualified Code(s): E11.9 - Type 2 diabetes mellitus without complications Sleep Medicine Subjective Interval history: Patient did sleep with auto titration CPAP last night but did poorly with it. His control is less than ideal. Based on this, we will not worry about setting him up on CPAP at discharge but will await formal evaluation in the sleep lab with treatment based upon titration. All this was discussed with him to his understanding. Exam (Progress Note) - Constitutional Vitals: Period Temp Pulse Resp BP Sys/Lopez Pulse Ox Last 24 Hr 97.4 F-99.3 F 73-80 17-20 90-107/56-63 90-99 Exam: He is alert and responsive in no acute distress. Results - Labs CBC & BMP: 09/18/17 04:13 09/18/17 04:13 Lab Results: I have reviewed the past 24 hour labs Specialty Discharge - Follow Up or Referrals Follow up with: Taqueria Espino MD [Physician] - 10/14/17 10:00 am Preet Wagner MD [Physician] - 1 Month (EKG, CBC, BMP with mag, prior to appointment)
[2017-09-19 12:32] VITALS: BP 100/60
[2017-09-19] MEDS: CHLORHEXIDINE 0.12% ORAL RINSE 60 ML BOTTLE SWISH/SPIT SCH (12:53)
--- NOTE | 2017-09-19 15:47 | Cardiology Progress Note ---
Demario Sherman Lesley, MARTÍN, am scribing for, and in the presence of, [place] Edmondson MD 15:46. Assessment and Plan - Time spent with patient Time spent with patient: Greater than 30 minutes (1) Hypertension Status: Chronic Assessment and plan: SEE PLAN LISTED BELOW (2) Seizure disorder Status: Chronic Assessment and plan: SEE PLAN LISTED BELOW (3) History of stroke Status: Chronic (4) CAD (coronary artery disease) Status: Chronic Assessment and plan: SEE PLAN LISTED BELOW Qualifiers: Coronary Disease-Associated Artery/Lesion type: [place] artery [place] vs. transplanted heart: [place] heart Associated angina: without angina Qualified Code(s): I25.10 - Atherosclerotic heart disease of [place] coronary artery without angina pectoris (5) Diabetes Status: Chronic Assessment and plan: SEE PLAN LISTED BELOW Qualifiers: Diabetes mellitus type: type 2 Diabetes mellitus complication status: without complication Diabetes mellitus senior living insulin use: without senior living use Qualified Code(s): E11.9 - Type 2 diabetes mellitus without complications (6) Hyperlipidemia Status: Chronic Assessment and plan: SEE PLAN LISTED BELOW (7) Suspected sleep apnea Status: Chronic (8) Status post coronary artery bypass graft Status: Acute Assessment and plan: SEE PLAN LISTED BELOW Cardiology - PN: Subj Interval history: [employer]: Dr. Wagner Summary: Mr. Barraza is a 62 year old BM, admitted with unstable angina. Cardiac catheterization revealed severe 2 vessel disease, not amenable to PCI. PMH significant for hypertension, CVA, CAD with PCI, Dyslipidemia, BPH, DM2, seizure disorder post stroke X1, GERD, remote smoker (quit over 30 years ago). PSH cervical fusion, appendectomy, cardiac cath with PCI. Cardiac cath severe 2V disease, pLAD and diagonal, LVEF > 55%. Sleep medicine consult, patient will need outpatient polysomnography. 09/15/17 CABG with left internal mammary graft to the anterior descending coronary artery and a saphenous vein graft to the diagonal coronary artery. September 19, 2017: The following chronic conditions are being monitored CAD, Hypertension, DM2 and are currently stable. Followed for more acute conditions to include recent CABG. POD #4, he is currently being monitored on telemetry floor. She is seen sitting up in chair today. He has been ambulating throughout the unit well. Patient is planning to be discharged home today. Medications have been adjusted throughout the stay, and the patient will be discharged home today. He will follow-up with Dr. Wagner in 4 weeks with EKG, BMP with mag, CBC prior to appointment. Discharge medications: ASA 81 mg p.o. daily Carvedilol 25 mg p.o. twice daily HCTZ 25 mg p.o. daily Rosuvastatin 10 mg p.o. nightly ROS: Cardiovascular: Mild chest soreness but overall no chest pain, heaviness, or tightness Pulmonary: Shortness of breath is stable, improved. Denies orthopnea, PND IMPRESSION AND PLAN: CAD - s/p CABG X 2. Cont ASA, Crestor, beta lissy. Did not initiate MARY GRACE-I due to blood pressure running in the low 90's to 100s. HYPERTENSION - controlled on beta lissy. MARY GRACE-I was not added. DYSLIPIDEMIA - continue Crestor. DM2 - Januvia and Metformin, accuchecks, monitor closely. HISTORY OF STROKE - BP well controlled, monitor closely. Continue aspirin SEIZURE DISORDER - seizure X 1 post stroke, monitor closely. NAOMIE - using CPAP at night. FU with dr. Wagner Exam (Progress Note) - Constitutional Vitals: Period Temp Pulse Resp BP Sys/Lopez Pulse Ox Last 24 Hr 97.4 F-99.3 F 73-80 17-20 90-107/56-63 90-99 Exam: General: Appears well with no apparent distress. Pleasant and cooperative. Appears comfortable. HEENT: PERRL, normocephalic, atraumatic. Mucous membranes moist. No jaundice noted. Conjunctiva moist and clear, sclerae anicteric. Neck: No JVD, no thyromegaly or lymphadenopathy noted. No carotid bruit appreciated. Cardiac: Regular rate and rhythm. No murmur rub or gallop. PMI is nondisplaced. Lungs: Essentially clear to auscultation without accessory muscle use, slight bilateral rhonchi. Oxygen in use via nasal cannula. Abdomen: Soft, bowel sounds normoactive. Nontender and nondistended. No abdominal bruit or thrill noted. No masses noted. patient reports good appetite and passing gas. Musculoskeletal: No fluid collection. Decreased range of motion is noted. Surgical dressings intact. Extremities: No clubbing, cyanosis noted. No edema noted. Upper extremity pulses 2+. Lower extremity pulses 2+. Capillary refill less than 3 seconds. Skin: Warm and dry. No unusual lesions or rashes. No skin breakdown appreciated. Surgical dressings intact to midline sternum, abdomen dressings, and right lower extremity intact. Neuro: Awake, alert and oriented 3. Moves all extremities well without hemiparesis or paralysis. No essential tremor is appreciated. Result/EKG - Labs CBC & BMP: 09/18/17 04:13 09/18/17 04:13 Labs: Laboratory Results - last 24 hr 09/18/17 09/18/17 09/18/17 11:34 14:44 19:20 POC Glucose 108 H 143 H 135 H 09/19/17 07:24 POC Glucose 105 - EKG EKG results: interpreted by me, sinus rhythm Quality Measures - VTE Contraindication to Pharmacological VTE Prophylaxis: High Risk of Bleeding Specialty Discharge - Follow Up or Referrals Follow up with: Taqueria Espino MD [Physician] - 10/14/17 10:00 am Marcie Alvarado, [Primary Care Provider] - (2-4 week follow up) Preet Wagner MD [Physician] - 10/20/17 10:00 am (EKG, CBC, BMP with mag, prior to appointment) Delvis Sherman Attila, MD, personally performed the services described in this documentation, ascribed by Dori Hanks NP in my presence, and it is both accurate and complete [phone] .
== END 2017-09-19 13:03 | disposition home health service (06) | DRG 232 ==
LOC: N.ED 09:25 → N.EDINP 12:21 → N.TELEN 16:22 → N.CVR 09-15 08:27 → N.TELES 09-16 08:45
PROVIDERS: ADMIT Internal Medicine; ATTEND Internal Medicine

== ENCOUNTER 2017-09-23 19:13 | Observation (INO) ==
[2017-09-23] MEDS ORDERED: FUROSEMIDE 40 MG/4 ML VIAL IV STA (19:45)
[2017-09-23] MEDS ORDERED: VANCOMYCIN INJ 1,000 MG in SODIUM CHLORIDE 0.9% 250 ML IV STA (19:45)
[2017-09-23] MEDS ORDERED: ONDANSETRON 4 MG/2 ML VIAL IV STA (19:45)
[2017-09-23] MEDS ORDERED: PIPERACILLIN/TAZOBACTAM 3,375 MG in SODIUM CHLORIDE 0.9% 100 ML IV STA (19:45)
[2017-09-23] MEDS ORDERED: methylPREDNISolone SOD SUC 125 MG/2 ML VIAL IV STA (19:45)
[2017-09-23] MEDS ORDERED: MORPHINE 2 MG/1 ML SYRINGE IV STA (19:45)
[2017-09-23] MEDS ORDERED: ALBUTEROL/IPRATROPIUM 3 ML NEB RESP TX STA (19:45)
[2017-09-23 20:01] LABS: Basophils % 0.2 % (0.0-0.8); Eosinophils # 0.3 10*3/uL (0.0-0.87); Eosinophils % 3.2 % (0.00-10.9); Hematocrit 29.1 VOL% (42.0-52.0); Hemoglobin 9.8 GM/DL (14.0-18.0); Immature Granulocytes % 0.5 %; Immature Granulocytes Absolute 0.05 #; Lymphocytes # 1.6 10*3/uL (1.4-4.0); Lymphocytes % 16.2 % (21.2-54.2); Mean Corpuscular HGB Conc 33.7 GM/DL (32-36); Mean Corpuscular Hemoglobin 31 PG (27-34); Mean Corpuscular Volume 91.2 FL (87-102); Mean Platelet Volume 10.5 FL (9.6-12.0); Monocytes # 1.1 10*3/uL (0.11-0.8); Monocytes % 11.6 % (1.7-12.7); Neutrophils # 6.7 10*3/uL (1.4-7.4); Neutrophils % 68.3 % (38.7-73.9); Platelet Count 261 T/CUMM (130-400); Red Blood Count 3.19 MC/CUMM (3.8-5.5); Red Cell Distribution Width 16.3 % (9.3-17.3); White Blood Count 9.9 T/CUMM (4-12)
[2017-09-23] MEDS ORDERED: SODIUM CHLORIDE 0.9% 100 ML IV ONE (20:06)
[2017-09-23] MEDS ORDERED: ONDANSETRON 4 MG/2 ML VIAL ONE (20:06)
[2017-09-23] MEDS ORDERED: FUROSEMIDE 40 MG/4 ML VIAL ONE (20:06)
[2017-09-23] MEDS ORDERED: PIPERACILLIN/TAZOBACTAM 3,375 MG VIAL IV ONE (20:06)
[2017-09-23] MEDS ORDERED: VANCOMYCIN 1,000 MG VIAL ONE (20:06)
[2017-09-23] MEDS ORDERED: MORPHINE 2 MG/1 ML SYRINGE ONE (20:07)
[2017-09-23] MEDS ORDERED: methylPREDNISolone SOD SUC 125 MG/2 ML VIAL ONE (20:07)
[2017-09-23 20:28] LABS: Alanine Aminotransferase 32 U/L (16-61); Albumin 2.9 G/DL (3.4-5.0); Alkaline Phosphatase 130 U/L (45-117); Aspartate Amino Transferase 28 U/L (0-37); Bilirubin,Total < 0.39 MG/DL (0.2-1.0); Blood Urea Nitrogen 12 MG/DL (7-18); Calcium 8.6 MG/DL (8.5-10.1); Glucose 93 MG/DL (74-106); Osmolality,Calculated 276.5 MOS/KG (273-304); Potassium 4.2 MMOL/L (3.5-5.1); Sodium 139 MMOL/L (136-145); Total Protein 6.8 G/DL (6.4-8.3)
[2017-09-23 21:13] LABS: Apearance,Urine CLEAR (Clear); Bilirubin,Urine Negative (Negative); Blood, Urine Negative (Negative); Glucose,Urine (UA) Negative (Negative); Ketones,Urine Negative (Negative); Mucus,Urine Occasional /LPF (Occasional); Nitrite,Urine Negative (Negative); Protein,Urine Negative; Squamous Epithelial Cell,Urine Occasional /HPF (0-10); Urine Color Yellow (Yellow); Urine Urobilinogen < 2.0 EU/DL (0.2-1.0)
[2017-09-23] MEDS ORDERED: LINACLOTIDE 145 MCG CAPSULE PO PRN (23:17)
[2017-09-23] MEDS ORDERED: ACETAMINOPHEN 325 MG TABLET PO PRN (23:17)
[2017-09-23] MEDS ORDERED: MORPHINE 2 MG/1 ML SYRINGE IV PRN (23:17)
[2017-09-23] MEDS ORDERED: ALBUTEROL/IPRATROPIUM 3 ML NEB RESP TX PRN (23:17)
[2017-09-23] MEDS ORDERED: GLUCAGON 1 MG VIAL IM PRN (23:17)
[2017-09-23] MEDS ORDERED: FLUTICASONE 50 MCG NASAL SPRAY 16 GM BOTTLE BOTH NARES PRN (23:17)
[2017-09-23] MEDS ORDERED: ONDANSETRON 4 MG/2 ML VIAL IV PRN (23:17)
[2017-09-23] MEDS ORDERED: DEXTROSE 50% 25 GM/50 ML VIAL IV PRN (23:17)
[2017-09-24] MEDS: SODIUM CHLORIDE 0.9% 1,000 ML IV SCH (01:00)
[2017-09-24 03:52] LABS: Basophils % 0.1 % (0.0-0.8); Eosinophils % 0.1 % (0.00-10.9); Hematocrit 27.7 VOL% (42.0-52.0); Hemoglobin 9.3 GM/DL (14.0-18.0); Immature Granulocytes % 0.6 %; Immature Granulocytes Absolute 0.05 #; Lymphocytes # 0.6 10*3/uL (1.4-4.0); Lymphocytes % 6.9 % (21.2-54.2); Mean Corpuscular HGB Conc 33.6 GM/DL (32-36); Mean Corpuscular Hemoglobin 31 PG (27-34); Mean Corpuscular Volume 91.1 FL (87-102); Mean Platelet Volume 10.3 FL (9.6-12.0); Monocytes # 0.1 10*3/uL (0.11-0.8); Monocytes % 1.6 % (1.7-12.7); Neutrophils % 90.7 % (38.7-73.9); Platelet Count 266 T/CUMM (130-400); Red Blood Count 3.04 MC/CUMM (3.8-5.5); White Blood Count 8.8 T/CUMM (4-12)
[2017-09-24] MEDS: PIPERACILLIN/TAZOBACTAM 3,375 MG in SODIUM CHLORIDE 0.9% 100 ML IV SCH ×2 (04:21→13:30)
[2017-09-24 04:55] LABS: Giant Platelets Few; Hypochromasia 1+; Lymphocytes 4 % (20-55); Platelet Estimate Adequate; Segmented Neutrophils 95 % (50-85); Total Cells Counted 100
[2017-09-24 05:14] LABS: Alanine Aminotransferase 30 U/L (16-61); Albumin 2.8 G/DL (3.4-5.0); Alkaline Phosphatase 117 U/L (45-117); Aspartate Amino Transferase 21 U/L (0-37); Bilirubin,Total < 0.39 MG/DL (0.2-1.0); Blood Urea Nitrogen 13 MG/DL (7-18); Calcium 8.3 MG/DL (8.5-10.1); Glucose 178 MG/DL (74-106); Magnesium 2.1 MG/DL (1.8-2.4); Osmolality,Calculated 280.5 MOS/KG (273-304); Potassium 4.4 MMOL/L (3.5-5.1); Sodium 139 MMOL/L (136-145)
[2017-09-24] MEDS: INSULIN REGULAR 100 UNIT/ML SUBCUT SCH ×4 (08:16→23:09)
[2017-09-24] MEDS: MELOXICAM 7.5 MG TABLET PO SCH (08:49)
[2017-09-24] MEDS: VANCOMYCIN INJ 1,500 MG in SODIUM CHLORIDE 0.9% 500 ML IV SCH ×2 (08:49→21:16)
[2017-09-24] MEDS: FERROUS SULFATE 325 MG TABLET PO SCH (08:49)
[2017-09-24] MEDS: CARVEDILOL 25 MG TABLET PO SCH ×2 (08:50→17:05)
[2017-09-24] MEDS: FOLIC ACID 1 MG TABLET PO SCH (08:50)
[2017-09-24] MEDS: sitaGLIPtin 100 MG TABLET PO SCH (08:50)
[2017-09-24] MEDS: PHENYTOIN ER 100 MG CAPSULE PO SCH ×2 (08:50→21:16)
[2017-09-24] MEDS: TAMSULOSIN 0.4 MG CAPSULE PO SCH (08:50)
[2017-09-24] MEDS: metFORMIN 500 MG TABLET PO SCH (08:50)
[2017-09-24] MEDS: ASPIRIN EC 81 MG TABLET PO SCH (08:50)
[2017-09-24] MEDS: hydroCHLOROthiazide 25 MG TABLET PO SCH (08:50)
[2017-09-24] MEDS: SERTRALINE 100 MG TABLET PO SCH (08:50)
[2017-09-24] MEDS: CETIRIZINE 10 MG TABLET PO SCH (08:50)
[2017-09-24] MEDS: PANTOPRAZOLE 40 MG TABLET PO SCH (08:50)
[2017-09-24] MEDS ORDERED: ROSUVASTATIN 10 MG TABLET PO SCH (21:00)
[2017-09-25] MEDS: PIPERACILLIN/TAZOBACTAM 3,375 MG in SODIUM CHLORIDE 0.9% 100 ML IV SCH ×3 (00:22→11:05)
[2017-09-25] MEDS: SODIUM CHLORIDE 0.9% 1,000 ML IV SCH (05:19)
[2017-09-25 05:41] LABS: Basophils % 0.3 % (0.0-0.8); Eosinophils # 0.4 10*3/uL (0.0-0.87); Hematocrit 27.1 VOL% (42.0-52.0); Hemoglobin 8.9 GM/DL (14.0-18.0); Immature Granulocytes % 0.4 %; Immature Granulocytes Absolute 0.04 #; Lymphocytes # 1.9 10*3/uL (1.4-4.0); Lymphocytes % 20.7 % (21.2-54.2); Mean Corpuscular HGB Conc 32.8 GM/DL (32-36); Mean Corpuscular Hemoglobin 30 PG (27-34); Mean Corpuscular Volume 92.5 FL (87-102); Mean Platelet Volume 9.6 FL (9.6-12.0); Monocytes # 0.9 10*3/uL (0.11-0.8); Monocytes % 9.9 % (1.7-12.7); Neutrophils # 5.9 10*3/uL (1.4-7.4); Neutrophils % 64.7 % (38.7-73.9); Platelet Count 266 T/CUMM (130-400); Red Blood Count 2.93 MC/CUMM (3.8-5.5); Red Cell Distribution Width 16.3 % (9.3-17.3); White Blood Count 9.2 T/CUMM (4-12)
[2017-09-25 06:12] LABS: Calcium 7.9 MG/DL (8.5-10.1); Potassium 3.5 MMOL/L (3.5-5.1)
[2017-09-25 08:26] VITALS: BP 117/71
[2017-09-25] MEDS: INSULIN REGULAR 100 UNIT/ML SUBCUT SCH ×2 (08:34→11:04)
[2017-09-25] MEDS: VANCOMYCIN INJ 1,500 MG in SODIUM CHLORIDE 0.9% 500 ML IV SCH (09:09)
[2017-09-25] MEDS: hydroCHLOROthiazide 25 MG TABLET PO SCH (09:30)
[2017-09-25] MEDS: TAMSULOSIN 0.4 MG CAPSULE PO SCH (09:31)
[2017-09-25] MEDS: MELOXICAM 7.5 MG TABLET PO SCH (09:31)
[2017-09-25] MEDS: FERROUS SULFATE 325 MG TABLET PO SCH (09:32)
[2017-09-25] MEDS: metFORMIN 500 MG TABLET PO SCH (09:33)
[2017-09-25] MEDS: PHENYTOIN ER 100 MG CAPSULE PO SCH (09:34)
[2017-09-25] MEDS: ASPIRIN EC 81 MG TABLET PO SCH (09:35)
[2017-09-25] MEDS: SERTRALINE 100 MG TABLET PO SCH (09:36)
[2017-09-25] MEDS: FOLIC ACID 1 MG TABLET PO SCH (09:36)
[2017-09-25] MEDS: sitaGLIPtin 100 MG TABLET PO SCH (09:36)
[2017-09-25] MEDS: CARVEDILOL 25 MG TABLET PO SCH (09:37)
[2017-09-25] MEDS: PANTOPRAZOLE 40 MG TABLET PO SCH (09:37)
[2017-09-25] MEDS: CETIRIZINE 10 MG TABLET PO SCH (09:37)
[2017-09-25] MEDS ORDERED: LEVOFLOXACIN 500 MG TABLET PO SCH (10:30)
[2017-09-25] MEDS ORDERED: VANCOMYCIN INJ 1,500 MG in SODIUM CHLORIDE 0.9% 500 ML IV SCH (15:00)
== END 2017-09-25 11:50 | disposition home or self-care (01) ==
LOC: N.EDINP 19:13 → N.ED 19:13 → N.TELEN 22:17